=== PATIENT | female | born 1980 | race Caucasian/White ===

== ENCOUNTER 2016-06-23 00:17 | Emergency (ER) | payer OTHER ==
[~2016-06-23] VITALS: Ht 157.5 cm; Wt 83.0 kg
[~2016-06-23 00:17] MED LIST: ADV25050 INH; ALBU8.5H5 IH; ATEN-51 PO; FENO145T25 PO; LANT3I SC; LIPA1CAP6 PO; METF1000 PO; NOVO3I SC; OMEG-135 PO
[2016-06-23 00:56] VITALS: Ht 157.5 cm; Wt 83.0 kg
[2016-06-23 02:46] LABS: URINE BLOOD (Dip) POC 2+ (NEGATIVE)
--- NOTE | 2016-06-23 02:46 | ERA ---
ER Documentation Chief Complaint Date/Time DATE: 06/23/16 TIME: 02:46 Chief Complaint Abdominal pain HPI The patient is a 36-year-old female, presenting to the ER, presenting to the ER because of abdominal pain that began about 4 PM, 1010 without aggravating or relieving factor. He had similar symptoms previously, complains of vomiting 2 initially foot then mucus. She also complained of substernal chest discomfort that began about 6 PM, 8/10, denies any radiation, denies chest pain with exertion or vomiting or diaphoresis. She had ultrasound of the gallbladder 2 months ago that was negative She denied dysuria, diarrhea, constipation. She does not smoke nor drink Past medical history: Diabetes mellitus, hypertension, dyslipidemia, history of frequent pancreatitis Past surgical history: ROS All systems reviewed and are negative except as per history of present illness. Medications Home Meds Active Scripts Albuterol Sulfate* (Albuterol Sulfate* HFA) 8.5 Gm Hfa.aer.ad, 2 PUFF IH Q4H Y for WHEEZING AND SOB, #1 EA Prov:NEO DOMÍNGUEZ DO 12/06/14 Salmeterol Xinaf/Fluticasone* (Advair*) 1 Inh Inha, 1 INH INH BID, #1 DISK Prov:ALYSON FIELD MD 08/14/14 Zpibga-Gfofetcu-Qdkmhkc* (Crechanelle DR* 24,000) 1 Cap Cap, 2 CAP PO WITH MEALS, # 180 CAP Prov:ALYSON FIELD MD 08/14/14 Fish Oil* (Fish Oil*) 1,000 Mg Cap, 2000 MG PO BID, #120 CAP Prov:ALYSON FIELD MD 08/14/14 Reported Medications Metformin Hcl* (Metformin Hcl*) 1,000 Mg Tablet, 1000 MG PO BID, #30 TAB 06/08/15 Insulin Glargine* (Lantus*) 100 Unit/Ml Soln, 70 UNIT SC BID, #1 VIAL 06/08/15 Insulin Aspart* (Novolog Insulin Pen*) 100 Unit/Ml Soln, 75 UNITS SC AC MEALS, EA 06/08/15 Atenolol* (Atenolol*) 25 Mg Tablet, 50 MG PO DAILY Y for ELEVATED BLOOD PRESSURE , TAB 01/21/14 Fenofibrate Nanocrystallized* (Tricor*) 145 Mg Tablet, 145 MG PO DAILY, TAB 01/21/14 Allergies Allergies: Coded Allergies: Iodinated Contrast Media - IV Dye (Verified Allergy, Mild, ITCHINESS, 01/01) PMhx/Soc History of Surgery: Yes (c section, lap band in and out) Anesthesia Reaction: No Hx Neurological Disorder: No Hx Respiratory Disorders: Yes (asrhma) Hx Cardiac Disorders: Yes (htn) Hx Psychiatric Problems: No Hx Alcohol Use: No Hx Substance Use: No Hx Tobacco Use: No Physical Exam Vitals Vital Signs Date Time Temp Pulse Resp B/P Pulse Ox O2 Delivery O2 Flow Rate FiO2 06/23/16 02:48 130 21 141/73 96 Room Air 06/23/16 00:56 97.8 126 20 147/84 98 Physical Exam Const: No acute distress. Head: Atraumatic. Eyes: Normal Conjunctiva. ENT: Normal External Ears, Nose and Mouth. Neck: Full range of motion. No meningismus. Resp: Clear to auscultation bilaterally. Cardio: Regular rate and rhythm, no murmurs. Abd: Soft, non distended, normal bowel sounds, moderate left upper quadrant tenderness, no rigidity, rebound, CVA tenderness Skin: No petechiae or rashes. Back: No midline or flank tenderness. Ext: No cyanosis, or edema. Neur: Awake and alert. No focal deficit Psych: Normal Mood and Affect. Result Diagram: 06/23/16 0330 06/23/16 0330 Results 24 hrs Laboratory Tests Test 06/23/16 02:45 06/23/16 03:30 06/23/16 04:30 Bedside Urine pH (LAB) 5.5 Bedside Urine Protein (LAB) 3+ Bedside Urine Glucose (UA) 0.50% Bedside Urine Ketones (LAB) Negative Bedside Urine Blood 2+ Bedside Urine Nitrite (LAB) Negative Bedside Urine Leukocyte Esterase (L Negative White Blood Count 8.110^3/ul Red Blood Count 4.9410^6/ul Hemoglobin 14.0g/dl Hematocrit 41.7% Mean Corpuscular Volume 84.4fl Mean Corpuscular Hemoglobin 28.3pg Mean Corpuscular Hemoglobin Concent 33.6g/dl Red Cell Distribution Width 14.7% Platelet Count 18654^3/UL Mean Platelet Volume 9.7fl Neutrophils % 46.4% Lymphocytes % 46.0% Monocytes % 5.2% Eosinophils % 1.4% Basophils % 0.4% Nucleated Red Blood Cells % 0.0/100WBC Neutrophils # 3.810^3/ul Lymphocytes # 3.710^3/ul Monocytes # 0.410^3/ul Eosinophils # 0.110^3/ul Basophils # 0.010^3/ul Nucleated Red Blood Cells # 0.010^3/ul Sodium Level 137mmol/L Potassium Level 3.5mmol/L Chloride Level 106mmol/L Carbon Dioxide Level 16mmol/L Anion Gap 19 Blood Urea Nitrogen 13mg/dl Creatinine 0.49mg/dl Glucose Level 162mg/dl Calcium Level 9.5mg/dl Total Bilirubin 0.3mg/dl Direct Bilirubin 0.00mg/dl Indirect Bilirubin 0.3mg/dl Aspartate Amino Transf (AST/SGOT) 22IU/L Alanine Aminotransferase (ALT/SGPT) 22IU/L Alkaline Phosphatase 145IU/L Total Protein 6.9g/dl Albumin 3.4g/dl Globulin 3.50g/dl Albumin/Globulin Ratio 0.97 Lipase 217U/L D-Dimer 405.30ng/ml D-Dimer Comment Current Medications Medications (Trade) Dose Ordered Sig/Bob Route PRN Reason Start Time Stop Time Status Last Admin Dose Admin Sodium Chloride (NS) 1,000 ml @ 1,000 mls/hr Q1H STAT IV 06/23/16 02:52 06/23/16 03:51 DC 06/23/16 03:25 Hydromorphone HCl (Dilaudid) 1 mg ONCE ONCE IV 06/23/16 03:31 06/23/16 03:32 DC 06/23/16 03:36 Diphenhydramine HCl (Benadryl) 50 mg ONCE ONCE IV 06/23/16 03:30 06/23/16 03:31 DC 06/23/16 03:35 Hydromorphone HCl 1 mg 1 mg ONCE ONCE IV 06/23/16 04:23 06/23/16 04:24 DC 06/23/16 04:47 Levofloxacin/ Dextrose 150 ml @ 100 mls/hr ONCE ONCE IVPB 06/23/16 05:00 06/23/16 06:29 Piperacillin Sod/ Tazobactam Sod 100 ml @ 200 mls/hr ONCE ONCE IVPB 06/23/16 05:00 06/23/16 05:29 DC Sodium Chloride 1,000 ml @ 1,000 mls/hr Q1H ONCE IV 06/23/16 06:00 06/23/16 06:59 Sodium Chloride (NS) 500 ml @ 500 mls/hr Q1H ONCE IV 06/23/16 06:00 06/23/16 06:59 Procedures/MDM [place] [address] Radiology Main Line: [phone] DIAGNOSTIC IMAGING REPORT Patient: SANDIP ARNOLD : 1980 Age: 36 Sex: F MR #: [id number] DOS: 06/23/16 0252 Ordering MD: MARI SPICER MD Location: E/R Room/Bed: PROCEDURE: CT ABDOMEN/PELVIS WITHOUT CONTRAST CLINICAL INDICATION: 36-year-old female with abdominal pain. TECHNIQUE: The study was performed utilizing a GE [employer] VCT 64-slice CT scanner. Direct axial sections were obtained through the abdomen and pelvis without the use of intravenous contrast material. Sagittal and coronal reformations were obtained. One or more of the following dose reduction techniques were utilized: automated exposure control, adjustment of the mA and/ or kV according to patient's size or use of iterative reconstruction technique. The images were reviewed on a PACS workstation. CTD/vol = 19.4 mGy; Total Exam DLP = 1220.6 mGy-cm. COMPARISON: CT abdomen/pelvis August 24, 2015; CT chest January 18, 2015. FINDINGS: There is a focal peripheral infiltrate within the lateral segment of the right middle lobe with air bronchograms. There is reticulonodular appearance within the partially visualized right middle and right lower lobes suggestive of bronchiolitis. There is no evidence for significant pleural effusion. The liver has a normal contour within the large right Reidel lobe. There is been interval development of a hypodense mass within the posterior segment of the right lobe of the liver on axial image 3-94 measuring 3.7 x 3.6 x 3.4 cm not well characterized on the current examination. No intrahepatic nor extrahepatic biliary ductal dilatation is seen. The gallbladder demonstrates no wall thickening nor pericholecystic fluid. No biliary stones are evident. There has been interval development of a cyst projecting from the ventral aspect of the pancreas on axial image 2-64 measuring approximately 2.5 x 2.5 x 2.4 cm with an adjacent cyst measuring approximately 2.5 x 2.4 x 1.9 cm. These are most suggestive of pancreatic pseudocysts. The spleen is mildly enlarged measuring 14.4 cm in maximal length but without abnormal density. The adrenal glands are unremarkable. There is a small ovoid right upper pole renal hypodense focus measuring 5 x 7 x 6 mm on axial image 3-61 containing fat density most suggestive of an angiomyolipoma and without significant interval change. No hydroureteronephrosis nor nephroureterolithiasis is evident. The urinary bladder contains urine. There is qgud-cz-slwurtay hiatal hernia. There is mild retained stool identified within the ascending and transverse colon without obstruction. The appendix is visualized and is without abnormal thickening or surrounding inflammatory reaction. The uterus is anteflexed. There is no significant free fluid. The aortoiliac vessels are without aneurysmal dilatation. The osseous structures are intact. IMPRESSION: 1. Small focal infiltrate within the lateral segment of the right middle lobe with air bronchograms. 2. Diffuse reticulonodular appearance within the right middle and lower lobes suggestive of bronchiolitis. 3. Interval development of hypodense mass within the posterior segment of the right lobe of the liver not well characterized on the current examination. MRI imaging would be more sensitive for further evaluation. 4. Interval development of two adjacent cysts within the pancreatic body most likely representing pseudocysts and sequela of prior pancreatitis. 5. Small fatty ovoid density within the upper right kidney most likely representing angiomyolipoma and without significant interval change. 6. Mild splenomegaly. 7. Xsbv-mx-tbekbrgq hiatal hernia. 8. Retained stool without obstruction. 9. No CT evidence for appendicitis. .Barak López MD, Date Time Electronically viewed and signed by .Barak López MD, on 06/23/2016 04:19 .M/ CC: MARI SPICER MD [place] [address] Radiology Main Line: [phone] DIAGNOSTIC IMAGING REPORT Patient: SANDIP ARNOLD : 1980 Age: 36 Sex: F MR #: [id number] DOS: 06/23/16 0449 Ordering MD: MARI SPICER MD Location: E/R Room/Bed: PROCEDURE: CHEST - 1 VIEW CLINICAL INDICATION: 36-year-old female with shortness of breath. TECHNIQUE: A single frontal AP portable view of the chest was performed. The images were reviewed on a PACS workstation. COMPARISON: Chest x-ray August 22, 2015; CT abdomen/pelvis June 23, 2016. FINDINGS: The cardiomediastinal silhouette is within normal limits. There is a infiltrate within the right lower lung zone. There are mild diffuse reticular appearance within the right mid/lower lung zone. There is no evidence for congestive heart failure. There is no evidence for pneumothorax. The osseous structures are intact. IMPRESSION: 1. Right lower lobe lung zone infiltrate as seen on the patient's recent CT scan. 2. Mild diffuse reticular appearance right mid/lower lung zone. .Barak López MD, MD Date Time Electronically viewed and signed by .Barak López MD, MD on 06/23/2016 05:35 .M/ CC: MARI SPICER MD EKG: Read by emergency physician Rate/Rhythm: sinus Tachycardia 125 beats/min QRS, ST, T-waves: No ST elevation, no T inversion, left atrial enlargement Impression: Abnormal EKG MEDICAL MAKING DECISION: The patient is a 36-year-old female, presenting with acute pancreatic pseudocyst, acute pneumonia, hepatic mass. She was treated with Dilaudid 1 mg IV 2 for pain, Benadryl 50 L IV 1 for pruritus, normal saline 30 mL/kg IV, Zosyn IV for acute pancreatic pseudocyst, Levaquin IV for pneumonia with good response. Lactic acid level is pending Departure Diagnosis: Primary Impression: Pancreatic pseudocyst Additional Impressions: Pneumonia Liver mass Condition: Stable Comments I discussed the findings with the patient. I discussed the patient with the on- call hospitalist Dr Sainz who was made aware of the lab, the treatment, the patient condition. The patient is admitted to medical surgery bed at 5:35 AM MARI SPICER MD Jun 23, 2016 02:46
[2016-06-23] MEDS ORDERED: SOD CHLORIDE 0.9% 1,000 ML IV STA (02:52)
[2016-06-23] MEDS ORDERED: DIPHENHYDRAMINE 50 MG INJ IV ONE (03:30)
[2016-06-23] MEDS ORDERED: HYDROmorphONE 1 MG/ML SYG IV ONE ×2 (03:31→04:23)
[2016-06-23 04:03] LABS: ADD SCAN DIFF NO
[2016-06-23 04:07] LABS: BASOPHILS % 0.4 % (0.0-2.0); EOSINOPHILS # 0.1 10^3/ul (0.0-0.5); EOSINOPHILS % 1.4 % (0.0-7.0); HEMATOCRIT 41.7 % (37.0-47.0); LYMPHOCYTES # 3.7 10^3/ul (0.8-2.9); MEAN CORPUSCULAR HEMOGLOBIN 28.3 pg (29.0-33.0); MEAN CORPUSCULAR HGB CONC 33.6 g/dl (32.0-37.0); MEAN CORPUSCULAR VOLUME 84.4 fl (82.0-101.0); MEAN PLATELET VOLUME 9.7 fl (7.4-10.4); MONOCYTE # 0.4 10^3/ul (0.3-0.9); MONOCYTES % 5.2 % (0.0-11.0); NEUTROPHIL # 3.8 10^3/ul (1.6-7.5); NEUTROPHILS % 46.4 % (39.0-77.0); PLATELET COUNT 281 10^3/UL (140-415); RED BLOOD COUNT 4.94 10^6/ul (4.20-5.40); RED CELL DISTRIBUTION WIDTH 14.7 % (11.5-14.5); WHITE BLOOD COUNT 8.1 10^3/ul (4.8-10.8)
--- NOTE | 2016-06-23 04:20 | RADRPT ---
PROCEDURE: CT ABDOMEN/PELVIS WITHOUT CONTRAST CLINICAL INDICATION: 36-year-old female with abdominal pain. TECHNIQUE: The study was performed utilizing a GE [employer] VCT 64-slice CT scanner. Direct axia l sections were obtained through the abdomen and pelvis without the use of intravenous contrast mate rial. Sagittal and coronal reformations were obtained. One or more of the following dose reduction t echniques were utilized: automated exposure control, adjustment of the mA and/or kV according to pat ient's size or use of iterative reconstruction technique. The images were reviewed on a PACS workst [employer]. CTD/vol = 19.4 mGy; Total Exam DLP = 1220.6 mGy-cm. COMPARISON: CT abdomen/pelvis August 24, 2015; CT chest January 18, 2015. FINDINGS: There is a focal peripheral infiltrate within the lateral segment of the right middle lobe with air bronchograms. There is reticulonodular appearance within the partially visualized right middle and right lower lobes suggestive of bronchiolitis. There is no evidence for significant pleural effusion . The liver has a normal contour within the large right Reidel lobe. There is been interval develo pment of a hypodense mass within the posterior segment of the right lobe of the liver on axial image 3-94 measuring 3.7 x 3.6 x 3.4 cm not well characterized on the current examination. No intrahepati c nor extrahepatic biliary ductal dilatation is seen. The gallbladder demonstrates no wall thickenin g nor pericholecystic fluid. No biliary stones are evident. There has been interval development of a cyst projecting from the ventral aspect of the pancreas on axial image 2-64 measuring approximately 2.5 x 2.5 x 2.4 cm with an adjacent cyst measuring approximately 2.5 x 2.4 x 1.9 cm. These are most suggestive of pancreatic pseudocysts. The spleen is mildly enlarged measuring 14.4 cm in sohail l length but without abnormal density. The adrenal glands are unremarkable. There is a small ovoid r ight upper pole renal hypodense focus measuring 5 x 7 x 6 mm on axial image 3-61 containing fat dens ity most suggestive of an angiomyolipoma and without significant interval change. No hydroureterone phrosis nor nephroureterolithiasis is evident. The urinary bladder contains urine. There is mild-to- moderate hiatal hernia. There is mild retained stool identified within the ascending and transverse colon without obstruction. The appendix is visualized and is without abnormal thickening or surrou nding inflammatory reaction. The uterus is anteflexed. There is no significant free fluid. The aor toiliac vessels are without aneurysmal dilatation. The osseous structures are intact. IMPRESSION: 1. Small focal infiltrate within the lateral segment of the right middle lobe with air bronchograms . 2. Diffuse reticulonodular appearance within the right middle and lower lobes suggestive of bronchi olitis. 3. Interval development of hypodense mass within the posterior segment of the right lobe of the epifanio er not well characterized on the current examination. MRI imaging would be more sensitive for furth er evaluation. 4. Interval development of two adjacent cysts within the pancreatic body most likely representing p seudocysts and sequela of prior pancreatitis. 5. Small fatty ovoid density within the upper right kidney most likely representing angiomyolipoma and without significant interval change. 6. Mild splenomegaly. 7. Pzuc-ai-fvhywark hiatal hernia. 8. Retained stool without obstruction. 9. No CT evidence for appendicitis. .Barak López MD, MD Date Time Electronically viewed and signed by .Barak López MD, on 06/23/2016 04:19 .M/
[2016-06-23 04:58] LABS: ALBUMIN 3.4 g/dl (3.3-4.9)
[2016-06-23 04:59] LABS: POTASSIUM 3.5 mmol/L (3.5-5.1)
[2016-06-23] MEDS ORDERED: LEVOFLOXACIN 750MG/D5W (PMX) 150 ML IVPB ONE (05:00)
[2016-06-23] MEDS ORDERED: PIPER-TAZO 3.375 GM IV (PMX) 100 ML IVPB ONE (05:00)
[2016-06-23 05:01] LABS: ALBUMIN/GLOBULIN RATIO 0.97; BILIRUBIN,INDIRECT 0.3 mg/dl (0-1.1); BILIRUBIN,TOTAL 0.3 mg/dl (0.2-1.3); CREATININE 0.49 mg/dl (0.44-1.00); TOTAL PROTEIN 6.9 g/dl (6.1-8.1)
[2016-06-23 05:02] LABS: CALCIUM 9.5 mg/dl (8.4-10.2)
[2016-06-23 05:13] LABS: D-DIMER 405.3 ng/ml (<460)
--- NOTE | 2016-06-23 05:35 | RADRPT ---
PROCEDURE: CHEST - 1 VIEW CLINICAL INDICATION: 36-year-old female with shortness of breath. TECHNIQUE: A single frontal AP portable view of the chest was performed. The images were reviewed on a PACS workstation. COMPARISON: Chest x-ray August 22, 2015; CT abdomen/pelvis June 23, 2016. FINDINGS: The cardiomediastinal silhouette is within normal limits. There is a infiltrate within the right lo wer lung zone. There are mild diffuse reticular appearance within the right mid/lower lung zone. T here is no evidence for congestive heart failure. There is no evidence for pneumothorax. The osseous structures are intact. IMPRESSION: 1. Right lower lobe lung zone infiltrate as seen on the patient's recent CT scan. 2. Mild diffuse reticular appearance right mid/lower lung zone. .Barak López MD, Date Time Electronically viewed and signed by .Barak López MD, on 06/23/2016 05:35 .M/
--- NOTE | 2016-06-23 05:49 | HP ---
Date/Time of Note Date/Time of Note DATE: 06/23/16 TIME: 05:49 Assessment/Plan VTE Prophylaxis VTE Prophylaxis Intervention: other (Lovenox) Assessment/Plan Assessment/Plan 1) Pneumonia, RML with borderline SIRS criteria since her RR = 20 and her HR is elevated in the 120s-130s. If she meets the SIRS Criteria, she then meets the criteria for Severe Sepsis as she has a source of infection and her Lactic Acid is 3.7, so I am erring on the side of caution and treating her for Sepsis with aggressive IV hydration. Of note, she is acidotic with a CO2 of 16. Consider ABG - Admit to Telemetry - NPO - Aggressive IV hydration - IV Abx - change to Rocephin and Zithronmax to cover for Community Acquired Pneumonia - TSH ordered 2) Chest Pain with Abnormal EKG/possible inferior infarct - Trop I added on. Result not back yet. - Serial Cardiac Enzymes - Repeat CXR in AM - Echocardiogram/Cardio Consult - Dr. 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 She then goes on to say that it's abdominal pain just like when she had previous pancreatitis. This pain started when she was eating as a severe pain and this was located over the lower sternum where she points and she also points into the epigastrium. She describes it as a severe pain that did not radiate but she felt sweaty and short of breath and was initially nauseated and then vomited a couple of times. She has no cardiac history. As I am asking her questions about her history and how she feels, she asks about her pain medication saying that the Dilaudid 1mg is not enough. (ER doctor already warned me that patient seemed to be drug seeking.) Patient admits to having a cough for about a week. She also says that she has asthma and asks for a treatment. She denies fever but has had chills for the past couple of days. She does not have general body aches or sore throat. Patient insists that the problem is her pancreas. I told her that her Lipase is not elevated. She states that for her, it is her Triglycerides elevate first and then the Lipase. I told her that is a test that I would get the next morning , fasting. I reviewed patients labs, rads and EKG. I currently do not have an old EKG for comparison, but there are definitely Q-waves in leads II, III and aVF, so I am concerned about an inferior infarction which would go along with the nausea and vomiting she described. I added on a Troponin I to the current labs. D-Dimer was not elevated. ROS General: Admits: Chills Denies: Fever, Poor Appetite, Generalized Body Aches Eyes: Admits: Denies: Blurry Vision, Double Vision HENT: Admits: Denies: Ear Pain/Pressure, Runny/Stuffy Nose, Sore Throat Cardiovascular: Admits: Denies: Palpitations, Leg Swelling Pulmonary: Admits: Cough Denies: Wheeze, Shortness of Breath Gastrointestinal: Admits: Abdominal Pain, Nausea, Vomiting Denies: Diarrhea, Blood in Stool, Black-Colored Stool Urogenital: Admits: Denies: Burning with Urination, Urinary Frequency, Blood in Urine Musculoskeletal: Admits: Denies: Joint Pain, Joint Swelling, Muscle Pain Neurological: Admits: Denies: Headache, Dizziness, Numbness, Tingling, Shooting Pains Integumentary: Admits: Denies: Rash, Itch PMH/Family/Social Past Medical History Asthma; HTN Past Surgical History c section, lap band in and out Social History Alcohol Use: none Smoking Status: Never smoker Drug Use: none Exam/Review of Systems Vital Signs Vitals Vital Signs Date Time Temp Pulse Resp B/P Pulse Ox O2 Delivery O2 Flow Rate FiO2 06/23/16 02:48 130 21 141/73 96 Room Air 06/23/16 00:56 97.8 Exam Exam General: Overweight femal resting on gurney, alert and oriented, in no acute distress. C/O pain that seems out of proportion to how she looks. Eyes: Sclera White, EOMI HENT: Normocephalic/Atraumatic, External Ears/Nose Normal, Moist Mucus Membranes Neck: Supple, Trachea Midline Cardiovascular: Tachy Rate, Regular Rhythm, Normal S1 and S2, No Murmur, No Extra Sounds. Radial pulse +2/4. No pedal edema. Pulmonary: Clear to Auscultation Bilaterally, but generally decreased airflow throughout. Normal Respiratory Effort, No Rales, Rhonchi or Wheezes Gastrointestinal: Normoactive Bowel Sounds, Soft, Epigastric Tenderness, no guarding or rebound. Non-Distended, No Hepatosplenomegaly Appreciated, No Pulsatile Masses Urogenital: Deferred Musculoskeletal: Normal Muscle Bulk and Tone. Reproducible Chest Pin with palpation over the lower sternum, but not with palpation of the mid-sternum. Neurological: CN II - XII Grossly Intact, Non-Focal, Speech Normal Integumentary: Normal Moisture and Temperature, Good Turgor, No Jaundice, No Rash Lymphatic: No Cervical Lymphadenopathy Psychiatric: Appropriate Mood and Affect, Good Eye Contact Labs Result Diagram: 06/23/16 0330 06/23/16 0330 Medications Medications Home Meds Active Scripts Albuterol Sulfate* (Albuterol Sulfate* HFA) 8.5 Gm Hfa.aer.ad, 2 PUFF IH Q4H Y for WHEEZING AND SOB, #1 EA Prov:NEO DOMÍNGUEZ DO 12/06/14 Salmeterol Xinaf/Fluticasone* (Advair*) 1 Inh Inha, 1 INH INH BID, #1 DISK Prov:ALYSON FIELD MD 08/14/14 Esgowa-Kufzvyfy-Jfulmvx* (Creon DR* 24,000) 1 Cap Cap, 2 CAP PO WITH MEALS, # 180 CAP Prov:ALYSON FIELD MD 08/14/14 Fish Oil* (Fish Oil*) 1,000 Mg Cap, 2000 MG PO BID, #120 CAP Prov:ALYSON FIELD MD 08/14/14 Reported Medications Metformin Hcl* (Metformin Hcl*) 1,000 Mg Tablet, 1000 MG PO BID, #30 TAB 06/08/15 Insulin Glargine* (Lantus*) 100 Unit/Ml Soln, 70 UNIT SC BID, #1 VIAL 06/08/15 Insulin Aspart* (Novolog Insulin Pen*) 100 Unit/Ml Soln, 75 UNITS SC AC MEALS, EA 06/08/15 Atenolol* (Atenolol*) 25 Mg Tablet, 50 MG PO DAILY Y for ELEVATED BLOOD PRESSURE , TAB 01/21/14 Fenofibrate Nanocrystallized* (Tricor*) 145 Mg Tablet, 145 MG PO DAILY, TAB 01/21/14 Allergies Allergies: Coded Allergies: Iodinated Contrast Media - IV Dye (Verified Allergy, Mild, ITCHINESS, 01/01) Current Medications Medications (Trade) Dose Ordered Sig/Bob Route PRN Reason Start Time Stop Time Status Last Admin Dose Admin Sodium Chloride (NS) 1,000 ml @ 1,000 mls/hr Q1H STAT IV 06/23/16 02:52 06/23/16 03:51 DC 06/23/16 03:25 Hydromorphone HCl (Dilaudid) 1 mg ONCE ONCE IV 06/23/16 03:31 06/23/16 03:32 DC 06/23/16 03:36 Diphenhydramine HCl (Benadryl) 50 mg ONCE ONCE IV 06/23/16 03:30 06/23/16 03:31 DC 06/23/16 03:35 Hydromorphone HCl 1 mg 1 mg ONCE ONCE IV 06/23/16 04:23 06/23/16 04:24 DC 06/23/16 04:47 Levofloxacin/ Dextrose 150 ml @ 100 mls/hr ONCE ONCE IVPB 06/23/16 05:00 06/23/16 06:29 Piperacillin Sod/ Tazobactam Sod (Zosyn 3.375gm/ 100 ml (Pmx)) 100 ml @ 200 mls/hr ONCE ONCE IVPB 06/23/16 05:00 06/23/16 05:29 DC Procedures Procedures Laboratory Tests Test 06/23/16 02:45 06/23/16 03:30 06/23/16 04:30 Bedside Urine pH (LAB) 5.5 Bedside Urine Protein (LAB) 3+ Bedside Urine Glucose (UA) 0.50% Bedside Urine Ketones (LAB) Negative Bedside Urine Blood 2+ Bedside Urine Nitrite (LAB) Negative Bedside Urine Leukocyte Esterase (L Negative White Blood Count 8.110^3/ul Red Blood Count 4.9410^6/ul Hemoglobin 14.0g/dl Hematocrit 41.7% Mean Corpuscular Volume 84.4fl Mean Corpuscular Hemoglobin 28.3pg Mean Corpuscular Hemoglobin Concent 33.6g/dl Red Cell Distribution Width 14.7% Platelet Count 19799^3/UL Mean Platelet Volume 9.7fl Neutrophils % 46.4% Lymphocytes % 46.0% Monocytes % 5.2% Eosinophils % 1.4% Basophils % 0.4% Nucleated Red Blood Cells % 0.0/100WBC Neutrophils # 3.810^3/ul Lymphocytes # 3.710^3/ul Monocytes # 0.410^3/ul Eosinophils # 0.110^3/ul Basophils # 0.010^3/ul Nucleated Red Blood Cells # 0.010^3/ul Sodium Level 137mmol/L Potassium Level 3.5mmol/L Chloride Level 106mmol/L Carbon Dioxide Level 16mmol/L Anion Gap 19 Blood Urea Nitrogen 13mg/dl Creatinine 0.49mg/dl Glucose Level 162mg/dl Calcium Level 9.5mg/dl Total Bilirubin 0.3mg/dl Direct Bilirubin 0.00mg/dl Indirect Bilirubin 0.3mg/dl Aspartate Amino Transf (AST/SGOT) 22IU/L Alanine Aminotransferase (ALT/SGPT) 22IU/L Alkaline Phosphatase 145IU/L Total Protein 6.9g/dl Albumin 3.4g/dl Globulin 3.50g/dl Albumin/Globulin Ratio 0.97 Lipase 217U/L D-Dimer 405.30ng/ml D-Dimer Comment PROCEDURE: CT ABDOMEN/PELVIS WITHOUT CONTRAST CLINICAL INDICATION: 36-year-old female with abdominal pain. COMPARISON: CT abdomen/pelvis August 24, 2015; CT chest January 18, 2015. IMPRESSION: 1. Small focal infiltrate within the lateral segment of the right middle lobe with air bronchograms. 2. Diffuse reticulonodular appearance within the right middle and lower lobes suggestive of bronchiolitis. 3. Interval development of hypodense mass within the posterior segment of the right lobe of the liver not well characterized on the current examination. MRI imaging would be more sensitive for further evaluation. 4. Interval development of two adjacent cysts within the pancreatic body most likely representing pseudocysts and sequela of prior pancreatitis. 5. Small fatty ovoid density within the upper right kidney most likely representing angiomyolipoma and without significant interval change. 6. Mild splenomegaly. 7. Truy-jg-usybbdek hiatal hernia. 8. Retained stool without obstruction. 9. No CT evidence for appendicitis. GRANT MACIAS DO Jun 23, 2016 05:49
[2016-06-23] MEDS ORDERED: SOD CHLORIDE 0.9% 1,000 ML IV ONE (06:00)
[2016-06-23] MEDS ORDERED: SOD CHLORIDE 0.9% 500 ML IV ONE (06:00)
[2016-06-23] MEDS ORDERED: HYDROmorphONE 1 MG/ML SYG IV STA (06:15)
[2016-06-23] MEDS ORDERED: ACETAMINOPHEN 325 MG TAB PO PRN (07:00)
[2016-06-23] MEDS ORDERED: NITROGLYCERIN (SL) 0.4 MG TAB SL PRN (07:00)
[2016-06-23] MEDS ORDERED: HYDROmorphONE 2 MG/ML SYG IV PRN (07:00)
[2016-06-23] MEDS ORDERED: NACL 0.9% 3 ML SYG IV SCH (07:00)
[2016-06-23] MEDS ORDERED: METOCLOPRAMIDE 10 MG INJ IV PRN (07:00)
[2016-06-23] MEDS ORDERED: LEVALBUTEROL (NEB) 1.25 MG/0.5 ML AMP HHN SCH (07:00)
[2016-06-23] MEDS ORDERED: HYDROCODONE/APAP (5/325) TAB PO PRN (07:00)
[2016-06-23] MEDS ORDERED: AZITHROMYCIN 250 MG in SOD CHLORIDE 0.9% 250 ML IVPB SCH (07:00)
[2016-06-23] MEDS ORDERED: ATEN50TA PO (07:10)
[2016-06-23] MEDS ORDERED: INSU300I SQ (07:11)
[2016-06-23] MEDS ORDERED: ZOLP10TA PO (07:12)
[2016-06-23] MEDS: SOD CHLORIDE 0.9% 1,000 ML IV SCH ×2 (07:54→08:48)
[2016-06-23 08:36] LABS: CREATINE KINASE 80 IU/L (23-200)
[2016-06-23 08:45] LABS: CK-MB 1.75 ng/ml (0.0-2.4)
[2016-06-23 08:49] LABS: TROPONIN-I < 0.012 ng/ml (0.00-0.12)
[2016-06-23 09:00] VITALS: TEMP 98.4
[2016-06-23] MEDS ORDERED: GLUCOSE GEL 15 GRAM TUBE PO PRN ×2 (09:00)
[2016-06-23] MEDS ORDERED: GLUCOSE GEL 15 GRAM TUBE BUCCAL PRN (09:00)
[2016-06-23] MEDS ORDERED: FAMOTIDINE 20 MG INJ IV SCH (09:00)
[2016-06-23] MEDS ORDERED: GLUCAGON 1 MG INJ IM PRN (09:00)
[2016-06-23] MEDS ORDERED: CEFTRIAXONE 1 GM/50 ML (PMX) 50 ML IVPB SCH ×2 (09:00→12:00)
[2016-06-23] MEDS ORDERED: DEXTROSE 50% 50 ML SYRINGE IV PRN ×2 (09:00)
[2016-06-23] MEDS ORDERED: ENOXAPARIN 40 MG/0.4 ML SYG SC SCH (09:00)
[2016-06-23 10:38] VITALS: BP 135/83; PULSE 111; RESP 16
[2016-06-23] MEDS ORDERED: INSULIN ASPART [NOVOLOG] 3 ML PEN SC SCH (12:00)
[2016-06-23 13:01] LABS: CREATINE KINASE 101 IU/L (23-200)
[2016-06-23 13:11] LABS: CK-MB 2.43 ng/ml (0.0-2.4)
[2016-06-23 13:32] LABS: TROPONIN-I < 0.012 ng/ml (0.00-0.12)
--- NOTE | 2016-06-23 16:31 | DS ---
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 This pain started when she was eating as a severe pain and this was located over the lower sternum where she points and she also points into the epigastrium. She describes it as a severe pain that did not radiate but she felt sweaty and short of breath and was initially nauseated and then vomited a couple of times. Upon evaluation the course of the emergency room patient continued to demand for high dose of pain medication such as Dilaudid. Patient admits to having a cough for about a week. She also says that she has asthma and asks for a treatment. She denies fever but has had chills for the past couple of days. She does not have general body aches or sore throat. She continued to complain of having abdominal discomfort. Her chest x-ray showed questionable for pneumonia she was started on Zosyn and that was as transitioned to Rocephin. Her EKG demonstrated Q-waves in leads II, III and aVF , so I am concerned about an inferior infarction which would go along with the nausea and vomiting she described. D-Dimer was not elevated. Troponin was evaluated. Patient was made n.p.o. IV fluid pain medication cardiology and palliative care physician was consulted. Patient was found to have elevated lipase and lactic acid and was scheduled to be admitted to telemetry floor although she decided to sign out AMA from emergency room.. As stated above cardiology was consulted although prior to patient being evaluated cardiology patient signed out AMA Patient understood that signed out AMA with place and at the risk of worsening of her abdominal discomfort, risk of myocardial infarction and heart attack, worsening of her infection, worsening of abdominal discomfort and pancreatitis and possible . Home Meds Active Scripts Fish Oil* (Fish Oil*) 1,000 Mg Cap, 2000 MG PO BID, #120 CAP Prov:ALYSON FIELD MD 08/14/14 Reported Medications Zolpidem Tartrate* (Ambien*) 10 Mg Tablet, 10 MG PO QHS Y for INSOMNIA, TAB 06/23/16 Insulin Glargine,Hum.rec.anlog (Toujeo Solostar) 300 Unit/1 Ml Insuln.pen, 70 UNIT SQ QAM 06/23/16 Atenolol* (Atenolol*) 50 Mg Tablet, 50 MG PO DAILY, #30 TAB 06/23/16 Insulin Aspart* (Novolog Insulin Pen*) 100 Unit/Ml Soln, 75 UNITS SC AC MEALS, EA 06/08/15 Fenofibrate Nanocrystallized* (Tricor*) 145 Mg Tablet, 145 MG PO DAILY, TAB 01/21/14 Discontinued Reported Medications Metformin Hcl* (Metformin Hcl*) 1,000 Mg Tablet, 1000 MG PO BID, #30 TAB 06/08/15 Insulin Glargine* (Lantus*) 100 Unit/Ml Soln, 70 UNIT SC BID, #1 VIAL 06/08/15 Atenolol* (Atenolol*) 25 Mg Tablet, 50 MG PO DAILY Y for ELEVATED BLOOD PRESSURE , TAB 01/21/14 Discontinued Scripts Albuterol Sulfate* (Albuterol Sulfate* HFA) 8.5 Gm Hfa.aer.ad, 2 PUFF IH Q4H Y for WHEEZING AND SOB, #1 EA Prov:NEO DOMÍNGUEZ DO 12/06/14 Salmeterol Xinaf/Fluticasone* (Advair*) 1 Inh Inha, 1 INH INH BID, #1 DISK Prov:ALYSON FIELD MD 08/14/14 Kupsoq-Juxskqyn-Lrfnyxs* (Flor DR* 24,000) 1 Cap Cap, 2 CAP PO WITH MEALS, # 180 CAP Prov:ALYSON FIELD MD 08/14/14 Pending Labs Laboratory Tests Test 06/23/16 02:45 06/23/16 03:30 06/23/16 04:30 06/23/16 05:17 Bedside Urine pH (LAB) 5.5 (5.0-8.5) Bedside Urine Protein (LAB) 3+ (NEGATIVE) Bedside Urine Glucose (UA) 0.50% (NEGATIVE) Bedside Urine Ketones (LAB) Negative (NEGATIVE) Bedside Urine Blood 2+ (NEGATIVE) Bedside Urine Nitrite (LAB) Negative (NEGATIVE) Bedside Urine Leukocyte Esterase (L Negative (NEGATIVE) White Blood Count 8.110^3/ul (4.8-10.8) Red Blood Count 4.9410^6/ul (4.20-5.40) Hemoglobin 14.0g/dl (12.0-16.0) Hematocrit 41.7% (37.0-47.0) Mean Corpuscular Volume 84.4fl (82.0-101.0) Mean Corpuscular Hemoglobin 28.3pg (29.0-33.0) Mean Corpuscular Hemoglobin Concent 33.6g/dl (32.0-37.0) Red Cell Distribution Width 14.7% (11.5-14.5) Platelet Count 06959^3/UL (140-415) Mean Platelet Volume 9.7fl (7.4-10.4) Neutrophils % 46.4% (39.0-77.0) Lymphocytes % 46.0% (15.0-51.0) Monocytes % 5.2% (0.0-11.0) Eosinophils % 1.4% (0.0-7.0) Basophils % 0.4% (0.0-2.0) Nucleated Red Blood Cells % 0.0/100WBC (0.0-0.0) Neutrophils # 3.810^3/ul (1.6-7.5) Lymphocytes # 3.710^3/ul (0.8-2.9) Monocytes # 0.410^3/ul (0.3-0.9) Eosinophils # 0.110^3/ul (0.0-0.5) Basophils # 0.010^3/ul (0.0-0.1) Nucleated Red Blood Cells # 0.010^3/ul (0.0-0.0) Sodium Level 137mmol/L (135-144) Potassium Level 3.5mmol/L (3.5-5.1) Chloride Level 106mmol/L (97-110) Carbon Dioxide Level 16mmol/L (21-31) Anion Gap 19 (8-16) Blood Urea Nitrogen 13mg/dl (7-20) Creatinine 0.49mg/dl (0.44-1.00) Glucose Level 162mg/dl (70-220) Calcium Level 9.5mg/dl (8.4-10.2) Total Bilirubin 0.3mg/dl (0.2-1.3) Direct Bilirubin 0.00mg/dl (0.00-0.20) Indirect Bilirubin 0.3mg/dl (0-1.1) Aspartate Amino Transf (AST/SGOT) 22IU/L (15-46) Alanine Aminotransferase (ALT/SGPT) 22IU/L (13-69) Alkaline Phosphatase 145IU/L (42-121) Total Protein 6.9g/dl (6.1-8.1) Albumin 3.4g/dl (3.3-4.9) Globulin 3.50g/dl (1.3-3.2) Albumin/Globulin Ratio 0.97 Lipase 217U/L (23-300) D-Dimer 405.30ng/ml (<460) D-Dimer Comment Triglycerides Level 1456mg/dl (0-149) Lactic Acid Level 3.7mmol/L (0.5-2.2) Troponin I < 0.012ng/ml (0.00-0.12) Test 06/23/16 07:10 06/23/16 07:40 06/23/16 09:29 06/23/16 12:25 Creatine Kinase 80IU/L (23-200) Creatine Kinase Index 2.2 Creatinine Kinase MB (Mass) 1.75ng/ml (0.0-2.4) Troponin I < 0.012ng/ml (0.00-0.12) Lactic Acid Level 4.7mmol/L (0.5-2.2) 4.8mmol/L (0.5-2.2) Bedside Glucose 284mg/dL (70-220) Test 06/23/16 12:42 Creatine Kinase 101IU/L (23-200) Creatine Kinase Index 2.4 Creatinine Kinase MB (Mass) 2.43ng/ml (0.0-2.4) Troponin I < 0.012ng/ml (0.00-0.12) JOEL CASTLE MD Jun 23, 2016 16:31
[2016-06-24] MEDS ORDERED: AZITHROMYCIN 250 MG in SOD CHLORIDE 0.9% 250 ML IVPB SCH (07:00)
== END 2016-06-23 13:40 | disposition left against medical advice (07) ==
LOC: E/R 00:17
DX: K86.3 Pseudocyst of pancreas (principal); J18.9 Pneumonia, unspecified organism; R16.0 Hepatomegaly, not elsewhere classified; I10 Essential (primary) hypertension; J45.909 Unspecified asthma, uncomplicated; E11.9 Type 2 diabetes mellitus without complications; Z79.4 Long term (current) use of insulin; Z79.84 Long term (current) use of oral hypoglycemic drugs
CPT/HCPCS: 36415; 71010; 74176; 80053; 81003; 82550; 82553; 82962; 83605; 83690; 84478; 84484; 85025; 85378; 87040; 93005; 94664; 96361; 96365; 96366; 96368; 96372; 96375; 96376; J0696; J1170; J1200; J1650; J1815; J1956; J2543; J7030; J7040; Z7502; Z7610; J0456; J7050

== ENCOUNTER 2016-08-25 16:23 | Inpatient (IN) | payer OTHER ==
[~2016-08-25] VITALS: Ht 162.6 cm; Wt 79.0 kg
[~2016-08-25 16:23] MED LIST changes: -ADV25050 INH; -ALBU8.5H5 IH; -ATEN-51 PO; +ATEN50TA PO; +INSU300I SQ; -LANT3I SC; -LIPA1CAP6 PO; -METF1000 PO; +ZOLP10TA PO
[2016-08-25 16:45] LABS: URINE BLOOD (Dip) POC Negative (NEGATIVE)
[2016-08-25] MEDS ORDERED: ONDANSETRON 4 MG INJ IV STA (16:56)
[2016-08-25] MEDS ORDERED: HYDROmorphONE 1 MG/ML SYG IV STA ×3 (16:56→21:46)
[2016-08-25] MEDS ORDERED: DIPHENHYDRAMINE 50 MG INJ IV ONE ×2 (17:00→22:00)
[2016-08-25] MEDS ORDERED: SOD CHLORIDE 0.9% 1,000 ML IV ONE (17:00)
[2016-08-25 17:51] LABS: Allen Test ACCEPTAB; Arterial COHb 0.5 % (0.0-3.0); Arterial HCO3 21.2 mmol/L (22.0-26.0); Arterial MetHb 0.3 % (0.0-1.5); Arterial Total Hemglobin 14.7 g/dl (12.0-18.0); MODE ROOM AIR
[2016-08-25 17:53] LABS: ADD SCAN DIFF NO
[2016-08-25 17:55] LABS: BASOPHILS % 0.1 % (0.0-2.0); EOSINOPHILS # 0.1 10^3/ul (0.0-0.5); EOSINOPHILS % 1.4 % (0.0-7.0); HEMATOCRIT 37.3 % (37.0-47.0); HEMOGLOBIN 13.7 g/dl (12.0-16.0); LYMPHOCYTES # 2.5 10^3/ul (0.8-2.9); LYMPHOCYTES % 28.6 % (15.0-51.0); MEAN CORPUSCULAR HEMOGLOBIN 29.8 pg (29.0-33.0); MEAN CORPUSCULAR HGB CONC 36.7 g/dl (32.0-37.0); MEAN CORPUSCULAR VOLUME 81.1 fl (82.0-101.0); MEAN PLATELET VOLUME 10.7 fl (7.4-10.4); MONOCYTE # 0.4 10^3/ul (0.3-0.9); MONOCYTES % 4.3 % (0.0-11.0); NEUTROPHIL # 5.7 10^3/ul (1.6-7.5); NEUTROPHILS % 65.1 % (39.0-77.0); PLATELET COUNT 308 10^3/UL (140-415); RED CELL DISTRIBUTION WIDTH 13.1 % (11.5-14.5); WHITE BLOOD COUNT 8.8 10^3/ul (4.8-10.8)
[2016-08-25 18:14] LABS: ALBUMIN 4.6 g/dl (3.3-4.9); ALBUMIN/GLOBULIN RATIO 1.39; BILIRUBIN,INDIRECT 0.4 mg/dl (0-1.1); BILIRUBIN,TOTAL 0.4 mg/dl (0.2-1.3); CALCIUM 10.3 mg/dl (8.4-10.2); CREATININE 1.05 mg/dl (0.44-1.00); POTASSIUM 4.8 mmol/L (3.5-5.1); TOTAL PROTEIN 7.9 g/dl (6.1-8.1)
[2016-08-25] MEDS ORDERED: LACTATED RINGER'S 1,000 ML IV ONE (18:30)
--- NOTE | 2016-08-25 19:08 | ERA ---
ER Documentation Chief Complaint Date/Time DATE: 08/25/16 TIME: 19:00 Chief Complaint AP/CHEST PAIN, HX PANCREATITIS (NATE SANCHES NP) HPI 36-year-old female with history of diabetes and pancreatitis presents to ED with sudden onset abdominal pain since yesterday. Patient states the pain is sharp, feels like "churning with knife inside." Patient reports nausea with 2 episodes of vomiting, nonbilious and nonbloody. Patient states that the abdominal pain feels similar to her previous pancreatitis pain, requesting Dilaudid. Patient takes Glucophage and Toujeo daily as well as sliding scale Humalog for her diabetes. Patient stated that her last blood sugar was 280 earlier today. LMP 08/03/2016. Denies fever or chills. Denies diarrhea. Denies dysuria. Denies cough or runny nose. Denies headache or neck pain. (NATE SANCHES NP) ROS All systems reviewed and are negative except as per history of present illness. (NATE SANCHES NP) Medications Home Meds Active Scripts Fish Oil* (Fish Oil*) 1,000 Mg Cap, 2000 MG PO BID, #120 CAP Prov:ALYSON FIELD MD 08/14/14 Reported Medications Insulin Glargine,Hum.rec.anlog (Toujeo Solostar) 300 Unit/1 Ml Insuln.pen, 75 UNIT SQ QHS 08/25/16 Insulin Lispro (Humalog Kwikpen) 200 Unit/1 Ml Insuln.pen, 0 SQ SLIDING SCALE Y for WITH MEALS, EA 08/25/16 Zolpidem Tartrate* (Ambien*) 10 Mg Tablet, 10 MG PO QHS Y for INSOMNIA, TAB 06/23/16 Atenolol* (Atenolol*) 50 Mg Tablet, 50 MG PO DAILY, #30 TAB 06/23/16 Fenofibrate Nanocrystallized* (Tricor*) 145 Mg Tablet, 145 MG PO DAILY, TAB 01/21/14 Discontinued Reported Medications Insulin Glargine,Hum.rec.anlog (Toujeo Solostar) 300 Unit/1 Ml Insuln.pen, 70 UNIT SQ QAM 06/23/16 Insulin Aspart* (Novolog Insulin Pen*) 100 Unit/Ml Soln, 75 UNITS SC AC MEALS, EA 06/08/15 Allergies Allergies: Coded Allergies: Iodinated Contrast Media - Oral and (Verified Allergy, Mild, ITCHINESS, 08/25/16) morphine (Verified Allergy, Unknown, BLISTERS, 08/25/16) PMhx/Soc History of Surgery: Yes (c section, lap band in and out) Anesthesia Reaction: No Hx Neurological Disorder: No Hx Respiratory Disorders: Yes (asthma) Hx Cardiac Disorders: Yes (htn, high triglycerides) Hx Psychiatric Problems: No Hx Alcohol Use: No Hx Substance Use: No Hx Tobacco Use: No Smoking Status: Never smoker (NATE SANCHES NP) Physical Exam Vitals Vital Signs Date Time Temp Pulse Resp B/P Pulse Ox O2 Delivery O2 Flow Rate FiO2 08/25/16 19:02 98.6 122 18 148/89 99 Room Air 08/25/16 16:24 98.2 123 18 118/73 99 (PANFILO MURGUIA MD) Physical Exam General: Well-developed, well-nourished, conscious and coherent, in no distress Skin: Warm and dry without rash, good texture and turgor Head: Normocephalic without evidence of trauma Eyes: Sclera and conjunctivae normal; pupils equal, round, and reactive to light; extraocular movements are intact Nose/Face: Without rhinorrhea Mouth/throat: Mucous membranes are moist. Posterior pharynx clear without erythema or exudates Neck: Supple without meningismus or adenopathy. Carotids are equal. Trachea midline. No bruits or JVD Chest: Normal AP diameter. Good expansion without retractions. Nontender. Lungs are clear to auscultate bilaterally with good tidal volume Heart: Tachycardia with regular rhythm. No murmur, rub, or gallops heard Abdomen: Obese and diffusely tender without masses, guarding, or rebound. Bowel sounds are active. No hepatosplenomegaly Back: Without spinal or CVA tenderness Pelvis: Nontender to palpation and stable to compression Extremities: Full range of motion. Good strength bilaterally. No clubbing, cyanosis, or edema. Peripheral pulses are intact. Sensation intact Neuro: Alert and oriented 4, GCS 15. Cranial nerves grossly intact. Motor and sensory exams nonfocal. Moves all extremities. Speech clear. Gait normal (NATE SANCHES NP) Result Diagram: 08/25/16 1740 6/8/17 2115 Results 24 hrs Laboratory Tests Test 08/25/16 16:48 08/25/16 17:28 08/25/16 17:37 08/25/16 17:40 Bedside Urine pH (LAB) 6.5 Bedside Urine Protein (LAB) Trace Bedside Urine Glucose (UA) 0.50% Bedside Urine Ketones (LAB) Negative Bedside Urine Blood Negative Bedside Urine Nitrite (LAB) Negative Bedside Urine Leukocyte Esterase (L Negative Bedside Glucose > 595mg/dL Blood Gas Specimen Source Blood arterial Arterial Blood Date Drawn 08/25/2016 5:42:13 PM Arterial Blood pH (Temp corrected) 7.437 Arterial Blood pCO2 (Temp correct) 32.2mmhg Arterial Blood pO2 (Temp corrected) 83.2mmHG Arterial Blood HCO3 21.2mmol/L Arterial Blood Base Excess -2.0mmol/L Arterial Blood Oxygen Saturation 95.8mmHG Yobani Test ACCEPTAB Arterial Blood Gas Puncture Site Right Radial Arterial Blood Carboxyhemoglobin 0.5% Arterial Blood Methemoglobin 0.3% Blood Gas A-a O2 Differential 28.0mmHg Oxyhemoglobin Percent 95.0% Total Hemoglobin 14.7g/dl Blood Gas Temperature 37.0C Blood Gas Modality ROOM AIR FiO2 21.0% Blood Gas Notified Whom M.Jasmeet Blood Gas Notified Time 08/25/2016 5:50:55 PM White Blood Count 8.810^3/ul Red Blood Count 4.6010^6/ul Hemoglobin 13.7g/dl Hematocrit 37.3% Mean Corpuscular Volume 81.1fl Mean Corpuscular Hemoglobin 29.8pg Mean Corpuscular Hemoglobin Concent 36.7g/dl Red Cell Distribution Width 13.1% Platelet Count 52733^3/UL Mean Platelet Volume 10.7fl Neutrophils % 65.1% Lymphocytes % 28.6% Monocytes % 4.3% Eosinophils % 1.4% Basophils % 0.1% Nucleated Red Blood Cells % 0.0/100WBC Neutrophils # 5.710^3/ul Lymphocytes # 2.510^3/ul Monocytes # 0.410^3/ul Eosinophils # 0.110^3/ul Basophils # 0.010^3/ul Nucleated Red Blood Cells # 0.010^3/ul Sodium Level 122mmol/L Potassium Level 4.8mmol/L Chloride Level 88mmol/L Carbon Dioxide Level 16mmol/L Anion Gap 23 Blood Urea Nitrogen 42mg/dl Creatinine 1.05mg/dl Glucose Level 1045mg/dl Calcium Level 10.3mg/dl Total Bilirubin 0.4mg/dl Direct Bilirubin 0.00mg/dl Indirect Bilirubin 0.4mg/dl Aspartate Amino Transf (AST/SGOT) 20IU/L Alanine Aminotransferase (ALT/SGPT) 31IU/L Alkaline Phosphatase 252IU/L Total Protein 7.9g/dl Albumin 4.6g/dl Globulin 3.30g/dl Albumin/Globulin Ratio 1.39 Lipase 138U/L Test 08/25/16 18:40 08/25/16 19:30 08/25/16 20:06 08/25/16 21:06 Lactic Acid Level 2.2mmol/L Phosphorus Level 6.6mg/dl Magnesium Level 1.6mg/dl Troponin I 0.020ng/ml Serum HCG, Qualitative NEGATIVE Bedside Glucose > 595mg/dL > 595mg/dL Test 08/25/16 21:15 08/25/16 21:25 Sodium Level 129mmol/L Potassium Level 4.3mmol/L Chloride Level 94mmol/L Carbon Dioxide Level 19mmol/L Anion Gap 20 Blood Urea Nitrogen 39mg/dl Creatinine 0.89mg/dl Glucose Level Pending Calcium Level 9.8mg/dl Lactic Acid Level 1.1mmol/L Current Medications Medications (Trade) Dose Ordered Sig/Bob Route PRN Reason Start Time Stop Time Status Last Admin Dose Admin Sodium Chloride (NS) 1,000 ml @ 1,000 mls/hr Q1H ONCE IV 08/25/16 17:00 08/25/16 17:59 DC 08/25/16 17:57 Hydromorphone HCl (Dilaudid) 1 mg ONCE STAT IV 08/25/16 16:56 08/25/16 16:59 DC 08/25/16 17:56 Ondansetron HCl (Zofran Inj) 4 mg ONCE STAT IV 08/25/16 16:56 08/25/16 16:59 DC 08/25/16 17:56 Diphenhydramine HCl 50 mg 50 mg ONCE ONCE IV 08/25/16 17:00 08/25/16 17:01 DC 08/25/16 17:56 Lactated Ringer's (Lr) 1,000 ml @ 1,000 mls/hr Q1H ONCE IV 08/25/16 18:30 08/25/16 19:29 DC 08/25/16 19:05 Hydromorphone HCl 1 mg 1 mg ONCE STAT IV 08/25/16 19:37 08/25/16 19:38 DC 08/25/16 20:13 Lactated Ringer's 1,000 ml @ 1,000 mls/hr Q1H STAT IV 08/25/16 19:47 08/25/16 20:46 DC 08/25/16 21:16 Insulin Human Regular/Sodium Chloride (Novolin-R/NS) 100 ml @ 0 mls/hr TITRATE STAT IV 08/25/16 19:47 08/25/16 19:52 DC 08/25/16 21:14 Hydromorphone HCl (Dilaudid) 1 mg ONCE STAT IV 08/25/16 21:46 08/25/16 21:47 DC 08/25/16 21:53 Diphenhydramine HCl (Benadryl) 25 mg ONCE ONCE IV 08/25/16 22:00 08/25/16 22:01 08/25/16 21:53 (PANFILO MURGUIA MD) Results 24 hrs PROCEDURE: XR Chest. CLINICAL INDICATION: Chest pain TECHNIQUE: AP view of the chest was obtained. COMPARISON: 06/23/2016 FINDINGS: The cardiomediastinal silhouette is within normal limits. The lungs are clear. No pleural effusion or pneumothorax is identified. The visualized osseous structures are intact. IMPRESSION: No evidence of active cardiopulmonary disease. RPTAT: HESO .Jamin Simmons MD, MD Date Time Electronically viewed and signed by .Jamin Simmons MD, MD on 08/25/2016 19:13 .O/ CC: NATE SANCHES NP (NATE SANCHES NP) Procedures/MDM 36-year-old female with history of diabetes and pancreatitis presents to ED today with sudden onset abdominal pain 2 days. Patient is well-known to this ED with frequent visits for the similar symptoms. She usually requests Dilaudid. Today, she requests 2 mg of Dilaudid, Benadryl, and Zofran. 1 mg of Dilaudid, 50 mg Benadryl, and 4 mg Zofran IV given to the patient, patient also given 1 L normal saline bolus. Her initial Accu-Chek initially was greater than 590. Differentials at this time include but not limited to DKA, HHS, pancreatitis. ABG is within normal, no acidosis. EKG: Sinus tachycardia with rate 122 bpm, normal axis. Q waves noted in leads II and III, no ST segment elevation or depression. No ectopic beats. No QT prolongation. No other EKG abnormalities. EKG read by Dr. Navarro. Checks x-ray within normal. CBC: Within normal limits, no leukocytosis. CMP: Glucose 1045, sodium 122, BUN 42, creatinine 1.05, anion gap of 23. Lipase: 138 UA: 0.5% glucose, trace protein, otherwise negative Patient likely to be in hyperglycemic hyperosmolar state. She did not have DKA or pancreatitis. I have low suspicion for infection or sepsis. However lactic acid is ordered, results pending. I have consulted patient with Dr. Navarro, who will admit patient to ICU. Patient stated that she still in pain, another 1 mg of Dilaudid IV given to the patient. Patient also given 1 L of lactated Ringer at this time. Patient condition: Stable Critical CARE time: 30 minutes (NATE SANCHES NP) EKG: Rate/Rhythm: Sinus tachycardia at 1 22 bpm QRS, ST, T-waves: No changes consistent w/ acute ischemia Impression: No evidence of ischemia or arrhythmia I assumed care of the patient from the [employer]. Patient is presenting with what seems to be hyperosmolar hyperglycemic syndrome. There is no evidence of DKA. There is some lactic acidosis, likely secondary to hypovolemia. There is no evidence of infection on urinalysis, exam, or chest x-ray. 3 L of IV fluids were given. She was started on insulin drip. . Patient was given Dilaudid for her abdominal pain. She does have a history of chronic pancreatitis, which is probably why her lipase is not elevated today. Patient is otherwise hemodynamically stable.Patient will require admission to the ICU. Discussed the patient with Dr. Simon, the admitting physician Critical Care Time: 35 minutes Treatments/Evaluations: Close monitoring and treatment of unstable vital signs, cardiorespiratory, and neurologic status, while maintaining tight balance of fluid, respiratory, and cardiac interventions. This time includes discussing the case with the patient and the patients family. This time does not include all procedures stated elsewhere in this record. This time also includes reviewing old records, labs and radiological studies. This time includes examining and re-examining the patient. Additionally, this time also includes arranging care with admitting and consulting physicians. (PANFILO MURGUIA MD) Departure Diagnosis: Primary Impression: Type 2 diabetes mellitus with hyperosmolar nonketotic hyperglycemia Condition: Critical NATE SANCHES NP Aug 25, 2016 19:08 PANFILO MURGUIA MD Aug 25, 2016 22:02
--- NOTE | 2016-08-25 19:13 | RADRPT ---
PROCEDURE: XR Chest. CLINICAL INDICATION: Chest pain TECHNIQUE: AP view of the chest was obtained. COMPARISON: 06/23/2016 FINDINGS: The cardiomediastinal silhouette is within normal limits. The lungs are clear. No pleural effusion or pneumothorax is identified. The visualized osseous structures are intact. IMPRESSION: No evidence of active cardiopulmonary disease. RPTAT: HESO .Jamin Simmons MD, Date Time Electronically viewed and signed by .Jamin Simmons MD, on 08/25/2016 19:13 .O/
[2016-08-25] MEDS ORDERED: LACTATED RINGER'S 1,000 ML IV STA (19:47)
[2016-08-25] MEDS ORDERED: INSULIN HUMAN REGULAR 100 UNIT in SOD CHLORIDE 0.9% 99 ML IV STA (19:47)
[2016-08-25] MEDS ORDERED: INSU200I SQ (19:58)
[2016-08-25] MEDS ORDERED: INSU300I SQ (19:59)
[2016-08-25 20:29] LABS: MAGNESIUM 1.6 mg/dl (1.7-2.5); PHOSPHORUS 6.6 mg/dl (2.5-4.9)
[2016-08-25 20:41] LABS: TROPONIN-I 0.02 ng/ml (0.00-0.12)
[2016-08-25 21:52] LABS: CALCIUM 9.8 mg/dl (8.4-10.2); CREATININE 0.89 mg/dl (0.44-1.00); POTASSIUM 4.3 mmol/L (3.5-5.1)
[2016-08-25 23:51] LABS: CALCIUM 9.9 mg/dl (8.4-10.2); CREATININE 0.85 mg/dl (0.44-1.00); POTASSIUM 3.8 mmol/L (3.5-5.1)
[2016-08-26] VITALS (11 sets, daily range): BP systolic 106–140; BP diastolic 56–90; PULSE 86–113; RESP 16–19; TEMP 96.4; Ht 162.6 cm; Wt 79.0 kg
[2016-08-26] MEDS: HYDROmorphONE 1 MG/ML SYG IV PRN ×4 (00:57→13:24)
[2016-08-26] MEDS ORDERED: GLUCOSE GEL 15 GRAM TUBE PO PRN ×2 (01:30)
[2016-08-26] MEDS: ACCU-CHEK XX SCH ×3 (01:30→03:30)
[2016-08-26] MEDS ORDERED: DEXTROSE 50% 50 ML SYRINGE IV PRN ×4 (01:30)
[2016-08-26] MEDS ORDERED: LORAZEPAM 2 MG INJ IV PRN (01:30)
[2016-08-26] MEDS ORDERED: GLUCAGON 1 MG INJ IM PRN (01:30)
[2016-08-26] MEDS: INSULIN GLARGINE [LANtus] 3 ML PEN SC SCH ×3 (01:30→21:37)
[2016-08-26] MEDS ORDERED: GLUCOSE GEL 15 GRAM TUBE BUCCAL PRN (01:30)
[2016-08-26 04:04] LABS: CALCIUM 10.1 mg/dl (8.4-10.2); CREATININE 0.75 mg/dl (0.44-1.00); POTASSIUM 3.7 mmol/L (3.5-5.1)
[2016-08-26] MEDS ORDERED: DIPHENHYDRAMINE 50 MG INJ IV ONE (05:00)
[2016-08-26] MEDS ORDERED: DIPHENHYDRAMINE 25 MG CAP PO PRN (05:00)
[2016-08-26] MEDS: SOD CHLORIDE 0.9% 1,000 ML IV SCH ×4 (05:01→17:14)
[2016-08-26] MEDS ORDERED: INSULIN ASPART [NOVOLOG] 3 ML PEN SC ONE (06:00)
--- NOTE | 2016-08-26 07:59 | HP ---
DATE OF ADMISSION: 08/26/2016 TIME SEEN: 2300. CHIEF COMPLAINT: Abdominal pain. HISTORY OF PRESENT ILLNESS: The patient is a 36-year-old female with a history of diabetes, pancrea titis, pancreatic pseudocyst, and pneumonia who presented to the emergency department with abdominal pain. The abdominal pain is described as sharp, it is diffuse and associated with nonbloody, nonbi lious emesis. No chest pain, no shortness of breath, fever, chills, or urinary symptoms. When she presented to the ER, she was tachycardic with a heart rate in the 120s, otherwise the rest of her vitals were stable. Laboratory value was notable for a sodium of 122, chloride 88, bicarbona te 16, BUN 42, creatinine 1.05, and glucose of 1045. The patient was started on insulin drip and wa s kept in the ER for a few hours with resolution of acidosis and with improvement of blood glucose. Lipase was normal at 138. REVIEW OF SYSTEMS: A 12-point review was performed and is negative except as mentioned in the HPI. PAST MEDICAL HISTORY: As per HPI. PAST SURGICAL HISTORY: , lap band. SOCIAL HISTORY: Denied a history of tobacco, alcohol, or illicit drug use. ALLERGIES: 1. IODINATED CONTRAST. 2. MORPHINE. HOME MEDICATIONS: 1. Insulin. 2. Ambien. 3. Fish oil. 4. Tricor. 5. Atenolol. PHYSICAL EXAMINATION: GENERAL: No distress, alert, and oriented. HEENT: No obvious head deformity. PSYCHIATRIC: Extraocular muscles intact. CARDIOVASCULAR: Tachycardic with regular rhythm. LUNGS: Clear. ABDOMEN: Soft. There is tenderness diffusely with no guarding, rebound tenderness, or rigidity. EXTREMITIES: No edema. NEUROLOGIC: No focal deficit. LABORATORY: Pertinent positive labs as mentioned in the HPI. IMAGING: Chest x-ray: No evidence of active cardiopulmonary disease. IMPRESSION: 1. Hyperosmolar hyperglycemic state. 2. Abdominal pain, likely secondary to chronic pancreatitis. 3. Pseudohyponatremia, secondary to hyperglycemia. 4. Mild acute kidney injury. 5. Anion gap metabolic acidosis, resolved. 6. History of hypertension, blood pressure within goal. 7. History of dyslipidemia. PLAN: The patient has been on insulin drip, now she will be transitioned to subcutaneous insulin. We will provide pain medication as needed. She will be continued with her home medication with adju stment as needed. Her abdominal pain is likely secondary to chronic pancreatitis. Note that the pa adan has a history of pseudocyst, but there is nothing in her presentation to indicate infectious c irrhosis. We will monitor her closely. Further workup and management per clinical course. Dictated By: PAMELA HINES/ELKE Conf#: [id number] DID#: [id number]
[2016-08-26 08:30] LABS: CALCIUM 9.3 mg/dl (8.4-10.2); CREATININE 0.73 mg/dl (0.44-1.00); POTASSIUM 4.3 mmol/L (3.5-5.1)
[2016-08-26] MEDS: INSULIN ASPART [NOVOLOG] 3 ML PEN SC SCH ×4 (08:50→21:36)
--- NOTE | 2016-08-26 14:35 | PN ---
Date/Time of Note Date/Time of Note DATE: 08/26/16 TIME: 14:25 Assessment/Plan VTE Prophylaxis VTE Prophylaxis Intervention: heparin Lines/Catheters IV Catheter Type (from Nrsg): Saline Lock Assessment/Plan Assessment/Plan 1. Hyperglycemia, improving, increase lantus, needs premeal when start eating more 2. Chronic pancreatitis, hypertriglyceridemia-related, pain management 3. Hereditary hypertriglyceridemia, lipid panel 4. Dehydration, on IVF 5. High AG metabolic acidosis, resolved 6. Mild acute kidney injury, due to dehydration 7. Hypertension, controlled 8. DVT prophylaxis: heparin Subjective 24 Hr Interval Summary Free Text/Dictation abdominal pain with nausea Exam/Review of Systems Vital Signs Vitals Vital Signs Date Time Temp Pulse Resp B/P Pulse Ox O2 Delivery O2 Flow Rate FiO2 08/26/16 12:14 99 08/26/16 11:31 98.1 18 113/75 100 08/26/16 05:00 Nasal Cannula 2.0 Intake and Output 08/25/16 08/25/16 08/26/16 15:00 23:00 07:00 Intake Total 838.4 ml Balance 838.4 ml Exam Constitutional: alert, obese, oriented, well developed Psych: nl mood/affect, no complaints Head: atraumatic, normocephalic Eyes: EOMI, PERRL, nl conjunctiva, nl lids ENMT: nl external ears & nose, nl lips & teeth, nl nasal mucosa & septum Neck: non-tender, supple Respiratory: clear to auscultation, normal air movement, No congested cough, No crackles/rales, No diminished breath sounds, No intercostal retraction, No labored breathing, No other, No respirations, No tactile fremitus, No wheezing Cardiovascular: nl pulses, regular rate and rhythm, No S3, No S4, No bruits, No diastolic murmur, No edema, No gallop, No irregular rhythm, No jugular venous distention (JVD), No murmurs/extra sounds, No other, No rub, No systolic murmur Gastrointestinal: other (upper abdominal tenderness), soft, No ascites, No bowel sounds, No distended, No firm, No hepatomegaly, No mass , No rebound or guarding, No splenomegaly Results Result Diagram: 08/25/16 1740 08/26/16 0710 Results 24 hrs Laboratory Tests Test 08/25/16 16:48 08/25/16 17:28 08/25/16 17:37 08/25/16 17:40 Bedside Urine pH (LAB) 6.5 Bedside Urine Protein (LAB) Trace H Bedside Urine Glucose (UA) 0.50% H Bedside Urine Ketones (LAB) Negative Bedside Urine Blood Negative Bedside Urine Nitrite (LAB) Negative Bedside Urine Leukocyte Esterase (L Negative Bedside Glucose > 595 *H Blood Gas Specimen Source Blood arterial Arterial Blood Date Drawn 08/25/2016 5:42:13 PM Arterial Blood pH (Temp corrected) 7.437 Arterial Blood pCO2 (Temp correct) 32.2 L Arterial Blood pO2 (Temp corrected) 83.2 Arterial Blood HCO3 21.2 L Arterial Blood Base Excess -2.0 Arterial Blood Oxygen Saturation 95.8 Yobani Test ACCEPTAB Arterial Blood Gas Puncture Site Right Radial Arterial Blood Carboxyhemoglobin 0.5 Arterial Blood Methemoglobin 0.3 Blood Gas A-a O2 Differential 28.0 H Oxyhemoglobin Percent 95.0 Total Hemoglobin 14.7 Blood Gas Temperature 37.0 Blood Gas Modality ROOM AIR FiO2 21.0 Blood Gas Notified Whom M.D. Blood Gas Notified Time 08/25/2016 5:50:55 PM White Blood Count 8.8 Red Blood Count 4.60 Hemoglobin 13.7 Hematocrit 37.3 Mean Corpuscular Volume 81.1 L Mean Corpuscular Hemoglobin 29.8 Mean Corpuscular Hemoglobin Concent 36.7 Red Cell Distribution Width 13.1 Platelet Count 308 Mean Platelet Volume 10.7 H Neutrophils % 65.1 Lymphocytes % 28.6 Monocytes % 4.3 Eosinophils % 1.4 Basophils % 0.1 Nucleated Red Blood Cells % 0.0 Neutrophils # 5.7 Lymphocytes # 2.5 Monocytes # 0.4 Eosinophils # 0.1 Basophils # 0.0 Nucleated Red Blood Cells # 0.0 Sodium Level 122 L Potassium Level 4.8 Chloride Level 88 L Carbon Dioxide Level 16 L Anion Gap 23 H Blood Urea Nitrogen 42 H Creatinine 1.05 H Glucose Level 1045 *H Calcium Level 10.3 H Total Bilirubin 0.4 Direct Bilirubin 0.00 Indirect Bilirubin 0.4 Aspartate Amino Transf (AST/SGOT) 20 Alanine Aminotransferase (ALT/SGPT) 31 Alkaline Phosphatase 252 H Total Protein 7.9 Albumin 4.6 Globulin 3.30 H Albumin/Globulin Ratio 1.39 Lipase 138 Test 08/25/16 18:40 08/25/16 19:30 08/25/16 20:06 08/25/16 21:06 Lactic Acid Level 2.2 Phosphorus Level 6.6 H Magnesium Level 1.6 L Troponin I 0.020 Serum HCG, Qualitative NEGATIVE Bedside Glucose > 595 *H > 595 *H Test 08/25/16 21:15 08/25/16 21:25 08/25/16 22:50 08/25/16 23:20 Sodium Level 129 L 131 L Potassium Level 4.3 3.8 Chloride Level 94 L 98 Carbon Dioxide Level 19 L 20 L Anion Gap 20 H 17 H Blood Urea Nitrogen 39 H 38 H Creatinine 0.89 0.85 Glucose Level 666 #*H 494 #*H Calcium Level 9.8 9.9 Lactic Acid Level 1.1 2.1 Bedside Glucose 525 *H Test 08/26/16 00:26 08/26/16 02:02 08/26/16 03:00 08/26/16 03:39 Bedside Glucose 328 H 276 H 192 Sodium Level 138 Potassium Level 3.7 Chloride Level 103 Carbon Dioxide Level 23 Anion Gap 16 Blood Urea Nitrogen 33 H Creatinine 0.75 Glucose Level 181 # Calcium Level 10.1 Test 08/26/16 05:44 08/26/16 07:10 08/26/16 08:48 08/26/16 11:40 Bedside Glucose 261 H 293 H 228 H Sodium Level 135 Potassium Level 4.3 Chloride Level 105 Carbon Dioxide Level 18 L Anion Gap 16 Blood Urea Nitrogen 30 H Creatinine 0.73 Glucose Level 266 H Calcium Level 9.3 Medications Medications Current Medications Hydromorphone HCl 1 mg 1 mg Q4H PRN IV SEVERE PAIN Last administered on 13:24; Admin Dose 1 MG; Start 08/26/16 at 00:45 Sodium Chloride (NS) 1,000 ml @ 125 mls/hr Q8H IV Last administered on 05:01; Admin Dose 125 MLS/HR; Start 08/26/16 at 01:14 Ondansetron HCl (Zofran Inj) 4 mg Q6H PRN IV NAUSEA AND/OR VOMITING; Start 08/26 at 01:30 Lorazepam (Ativan) 1 mg Q2H PRN IV ANXIETY; Start 08/26/16 at 01:30 Dextrose (D50w Syringe) 25 ml Q15M PRN IV Till BS 80 mg/dL or above x2; Start 08/26/16 at 01:30 Dextrose (D50w Syringe) 50 ml Q15M PRN IV Till BS 80 mg/dL or above x2; Start 08/26/16 at 01:30 Insulin Glargine (Lantus) 20 unit DAILY@20 SC Last administered on 08/26/16t 03: 54; Admin Dose 20 UNIT; Start 08/26/16 at 01:30 Miscellaneous Information 1 ea NOTE XX ; Start 08/26/16 at 01:30 Glucose (Glutose) 15 gm Q15M PRN PO DECREASED GLUCOSE; Start 08/26/16 at 01:30 Glucose (Glutose) 22.5 gm Q15M PRN PO DECREASED GLUCOSE; Start 08/26/16 at 01:30 Dextrose (D50w Syringe) 25 ml Q15M PRN IV DECREASED GLUCOSE; Start 08/26/16 at 01:30 Dextrose (D50w Syringe) 50 ml Q15M PRN IV DECREASED GLUCOSE; Start 08/26/16 at 01:30 Glucagon (Glucagen) 1 mg Q15M PRN IM DECREASED GLUCOSE; Start 08/26/16 at 01:30 Glucose (Glutose) 15 gm Q15M PRN BUCCAL DECREASED GLUCOSE; Start 08/26/16 at 01: 30 Diphenhydramine HCl (Benadryl) 25 mg Q6H PRN PO ITCHING; Start 08/26/16 at 05:00 CAITLIN DILLON MD Aug 26, 2016 14:35
[2016-08-26] MEDS: ONDANSETRON 4 MG INJ IV PRN (15:05)
[2016-08-26] MEDS: HEPARIN 5,000 UNIT/0.5 ML VIAL SC SCH ×2 (15:12→22:23)
[2016-08-26] MEDS: DIPHENHYDRAMINE 50 MG INJ IV PRN ×2 (17:55→21:57)
[2016-08-26] MEDS: HYDROmorphONE 2 MG/ML SYG IV PRN ×2 (17:56→21:57)
[2016-08-27] VITALS (13 sets, daily range): BP systolic 96–128; BP diastolic 54–75; PULSE 74–105; RESP 17–20
[2016-08-27] MEDS: SOD CHLORIDE 0.9% 1,000 ML IV SCH ×3 (01:14→17:14)
[2016-08-27] MEDS: HYDROmorphONE 2 MG/ML SYG IV PRN ×6 (02:13→22:53)
[2016-08-27] MEDS: DIPHENHYDRAMINE 50 MG INJ IV PRN ×6 (02:38→22:53)
[2016-08-27] MEDS: ONDANSETRON 4 MG INJ IV PRN ×2 (06:05→18:45)
[2016-08-27] MEDS: INSULIN ASPART [NOVOLOG] 3 ML PEN SC SCH ×4 (07:57→20:44)
[2016-08-27 08:31] LABS: ADD SCAN DIFF NO
[2016-08-27 08:36] LABS: HEMATOCRIT 35.2 % (37.0-47.0); HEMOGLOBIN 11.9 g/dl (12.0-16.0); MEAN CORPUSCULAR HEMOGLOBIN 28.9 pg (29.0-33.0); MEAN CORPUSCULAR HGB CONC 33.8 g/dl (32.0-37.0); MEAN CORPUSCULAR VOLUME 85.4 fl (82.0-101.0); MEAN PLATELET VOLUME 9.9 fl (7.4-10.4); PLATELET COUNT 261 10^3/UL (140-415); RED BLOOD COUNT 4.12 10^6/ul (4.20-5.40); RED CELL DISTRIBUTION WIDTH 13.7 % (11.5-14.5); WHITE BLOOD COUNT 6.1 10^3/ul (4.8-10.8)
[2016-08-27 09:01] LABS: ALBUMIN 3.7 g/dl (3.3-4.9); ALBUMIN/GLOBULIN RATIO 1.37; BILIRUBIN,INDIRECT 0.2 mg/dl (0-1.1); BILIRUBIN,TOTAL 0.2 mg/dl (0.2-1.3); CALCIUM 8.4 mg/dl (8.4-10.2); CREATININE 0.53 mg/dl (0.44-1.00); POTASSIUM 3.9 mmol/L (3.5-5.1); TOTAL PROTEIN 6.4 g/dl (6.1-8.1)
[2016-08-27 09:04] LABS: NEUTROPHILS % 41.2 % (39.0-77.0)
[2016-08-27 09:05] LABS: BASOPHILS % 0.2 % (0.0-2.0); EOSINOPHILS # 0.3 10^3/ul (0.0-0.5); EOSINOPHILS % 4.4 % (0.0-7.0); LYMPHOCYTES # 3.1 10^3/ul (0.8-2.9); LYMPHOCYTES % 50.1 % (15.0-51.0); MONOCYTE # 0.2 10^3/ul (0.3-0.9); MONOCYTES % 3.8 % (0.0-11.0); NEUTROPHIL # 2.5 10^3/ul (1.6-7.5)
[2016-08-27] MEDS: HEPARIN 5,000 UNIT/0.5 ML VIAL SC SCH ×2 (09:32→20:34)
--- NOTE | 2016-08-27 11:52 | PN ---
Date/Time of Note Date/Time of Note DATE: 08/27/16 TIME: 11:46 Assessment/Plan VTE Prophylaxis VTE Prophylaxis Intervention: heparin Lines/Catheters IV C[facility] Type [facility]from [facility] Peripheral IV Assessment/Plan Problems: (1) Migraine equivalent syndrome Status: Chronic Comment: This patient has history of migraines is actually having more than 4 migraines per month. In addition is entirely possible that her abdominal symptoms are actually represent migraine equivalent syndrome cyclical vomiting disorder. This is managed in the same prophylactic fashion as migraine syndrome. She will start on topiramate now. Careful review of the entire history of admissions to this facility will demonstrate many many admissions labeled as pancreatitis all of which except 2 had normal amylase and lipase. (2) Undifferentiated abdominal pain Status: Acute Comment: I suspect her abdominal pain actually is a migraine equivalent syndrome (3) Type 2 diabetes mellitus with hyperosmolar nonketotic hyperglycemia Status: Acute Comment: She has severe hyper glycemia due to significant insulin resistance syndrome. 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 Going to add in or return her metformin and titrate to effect. Please note she absolutely is positively not an appropriate candidate for GLP-1 drugs or DPP 4 inhibitors (4) Asthma Status: Chronic Comment: She is off of her treatment for this and needs to be returned to treatment for asthma. Qualifiers: Asthma severity: moderate persistent Subjective 24 Hr Interval Summary Free Text/Dictation Patient reports she is still having abdominal pain and some wheezing and migraines Constitutional: no complaints (Denies fevers chills or sweats) Respiratory: shortness of breath, wheezing Cardiovascular: no complaints Gastrointestinal: nausea, pain Genitourinary: no complaints Exam/Review of Systems Vital Signs Vitals Vital Signs Date Time Temp Pulse Resp B/P Pulse Ox O2 Delivery O2 Flow Rate FiO2 08/27/16 08:08 87 08/27/16 07:57 98.0 19 96/54 95 08/26/16 20:00 Nasal Cannula 2.0 Intake and Output 08/26/16 08/26/16 08/27/16 14:59 22:59 06:59 Intake Total 240 ml 725 ml Balance 240 ml 725 ml Exam Pleasant [place] woman known to me from the remote past Constitutional: alert, oriented Respiratory: wheezing Cardiovascular: nl pulses, regular rate and rhythm Gastrointestinal: nl liver, spleen, non-tender, soft Results Result Diagram: 08/27/16 0740 08/27/16 0740 Results 24 hrs Laboratory Tests Test 08/26/16 18:01 08/26/16 21:27 08/27/16 07:40 08/27/16 07:48 Bedside Glucose 204 186 239 H White Blood Count 6.1 # Red Blood Count 4.12 L Hemoglobin 11.9 L Hematocrit 35.2 L Mean Corpuscular Volume 85.4 Mean Corpuscular Hemoglobin 28.9 L Mean Corpuscular Hemoglobin Concent 33.8 Red Cell Distribution Width 13.7 Platelet Count 261 Mean Platelet Volume 9.9 Neutrophils % 41.2 Band Neutrophils % 0.0 Lymphocytes % 50.1 Monocytes % 3.8 Eosinophils % 4.4 Basophils % 0.2 Nucleated Red Blood Cells % 0.0 Neutrophils # 2.5 Lymphocytes # 3.1 H Monocytes # 0.2 L Eosinophils # 0.3 Basophils # 0.0 Nucleated Red Blood Cells # 0.0 Sodium Level 136 Potassium Level 3.9 Chloride Level 108 Carbon Dioxide Level 22 Anion Gap 10 # Blood Urea Nitrogen 11 # Creatinine 0.53 Glucose Level 221 H Calcium Level 8.4 Total Bilirubin 0.2 Direct Bilirubin 0.00 Indirect Bilirubin 0.2 Aspartate Amino Transf (AST/SGOT) 17 Alanine Aminotransferase (ALT/SGPT) 26 Alkaline Phosphatase 79 # Total Protein 6.4 # Albumin 3.7 Globulin 2.70 Albumin/Globulin Ratio 1.37 Medications Medications Current Medications Sodium Chloride (NS) 1,000 ml @ 125 mls/hr Q8H IV Last administered on 15:12; Admin Dose 125 MLS/HR; Start 08/26/16 at 01:14 Ondansetron HCl (Zofran Inj) 4 mg Q6H PRN IV NAUSEA AND/OR VOMITING Last administered on 08/27/16 06:05; Admin Dose 4 MG; Start 08/26/16 at 01:30 Lorazepam (Ativan) 1 mg Q2H PRN IV ANXIETY; Start 08/26/16 at 01:30 Dextrose (D50w Syringe) 25 ml Q15M PRN IV Till BS 80 mg/dL or above x2; Start 08/26/16 at 01:30 Dextrose (D50w Syringe) 50 ml Q15M PRN IV Till BS 80 mg/dL or above x2; Start 08/26/16 at 01:30 Miscellaneous Information 1 ea NOTE XX ; Start 08/26/16 at 01:30 Glucose (Glutose) 15 gm Q15M PRN PO DECREASED GLUCOSE; Start 08/26/16 at 01:30 Glucose (Glutose) 22.5 gm Q15M PRN PO DECREASED GLUCOSE; Start 08/26/16 at 01:30 Dextrose (D50w Syringe) 25 ml Q15M PRN IV DECREASED GLUCOSE; Start 08/26/16 at 01:30 Dextrose (D50w Syringe) 50 ml Q15M PRN IV DECREASED GLUCOSE; Start 08/26/16 at 01:30 Glucagon (Glucagen) 1 mg Q15M PRN IM DECREASED GLUCOSE; Start 08/26/16 at 01:30 Glucose (Glutose) 15 gm Q15M PRN BUCCAL DECREASED GLUCOSE; Start 08/26/16 at 01: 30 Hydromorphone HCl (Dilaudid) 1.5 mg Q4H PRN IV SEVERE PAIN Last administered on 08/27/16 10:12; Admin Dose 1.5 MG; Start 08/26/16 at 15:00 Insulin Glargine (Lantus) 26 unit DAILY@20 SC Last administered on 08/26/16 21: 37; Admin Dose 26 UNIT; Start 08/26/16 at 20:00 Heparin Sodium (Porcine) (Heparin (5000 Units/0.5 ml)) 5,000 unit BID SC Last administered on 08/27/16 09:32; Admin Dose 5,000 UNIT; Start 08/26/16 at 15:00 Diphenhydramine HCl (Benadryl) 25 mg Q4H PRN IV ITCHING Last administered on 10:12; Admin Dose 25 MG; Start 08/27/16 at 02:10 ROLANDO PERRY MD Aug 27, 2016 11:52
[2016-08-27] MEDS: FISH OIL 1,000 MG CAP PO SCH ×2 (12:27→20:41)
[2016-08-27] MEDS: metFORMIN 500 MG TAB PO SCH ×2 (12:27→17:41)
[2016-08-27] MEDS: TOPIRAMATE 25 MG TAB PO SCH ×2 (13:56→20:41)
[2016-08-27] MEDS: SALMETEROL/FLUTICASONE 250/50 INHA INH SCH ×2 (13:56→22:58)
[2016-08-27] MEDS: GEMFIBROZIL 600 MG TAB PO SCH ×2 (13:57→17:41)
[2016-08-27] MEDS ORDERED: INSULIN ASPART [NOVOLOG] 3 ML PEN SC ONE (20:30)
[2016-08-27] MEDS: INSULIN GLARGINE [LANtus] 3 ML PEN SC SCH (20:36)
[2016-08-28] VITALS (11 sets, daily range): BP systolic 102–127; BP diastolic 60–82; PULSE 74–96; RESP 18–20
[2016-08-28] MEDS: ZOLPIDEM 5 MG TAB PO PRN ×2 (00:24→23:40)
[2016-08-28] MEDS: SOD CHLORIDE 0.9% 1,000 ML IV SCH ×4 (01:14→23:41)
[2016-08-28] MEDS ORDERED: INSULIN ASPART [NOVOLOG] 3 ML PEN SC ONE ×2 (02:30→20:30)
[2016-08-28] MEDS: HYDROmorphONE 2 MG/ML SYG IV PRN ×6 (02:53→23:55)
[2016-08-28] MEDS: DIPHENHYDRAMINE 50 MG INJ IV PRN ×6 (02:53→23:55)
[2016-08-28] MEDS: ONDANSETRON 4 MG INJ IV PRN ×2 (06:50→20:01)
[2016-08-28] MEDS: GEMFIBROZIL 600 MG TAB PO SCH ×2 (06:52→17:20)
[2016-08-28] MEDS: metFORMIN 500 MG TAB PO SCH ×2 (07:56→17:20)
[2016-08-28] MEDS: INSULIN ASPART [NOVOLOG] 3 ML PEN SC SCH ×6 (07:56→20:30)
[2016-08-28] MEDS: HEPARIN 5,000 UNIT/0.5 ML VIAL SC SCH ×2 (08:25→20:27)
[2016-08-28] MEDS: TOPIRAMATE 25 MG TAB PO SCH ×2 (08:29→20:28)
[2016-08-28] MEDS: FISH OIL 1,000 MG CAP PO SCH ×2 (08:29→20:27)
[2016-08-28] MEDS: SALMETEROL/FLUTICASONE 250/50 INHA INH SCH ×2 (08:29→20:30)
--- NOTE | 2016-08-28 09:24 | PN ---
Date/Time of Note Date/Time of Note DATE: 08/28/16 TIME: 09:19 Assessment/Plan VTE Prophylaxis VTE Prophylaxis Intervention: other Lines/Catheters IV C[facility] Type (from [facility] Saline Lock Assessment/Plan Problems: (1) Asthma Status: Chronic Comment: Patient's breathing is much improved with usage of the Advair as a controller medication. Expect that this will continue to improve and this therapy should be maintained Qualifiers: Asthma severity: moderate persistent (2) Epigastric abdominal pain Status: Acute Comment: Her abdominal pain is probably multifactorial. In review of her entire [facility] records she has had 6 clear-cut episodes of pancreatitis including formation of pancreatic pseudocyst. Undoubtedly there is a bit of that going on now which is being driven by her hypertriglyceridemia. However there is also probably some abdominal pain this is equivalent of migraine syndrome. Will need to treat all of the above to resolve these issues. At this time even though she is getting better she is still using a lot of pain medications but we may be making improvements i.e. we should be able get her out of fear about 72 hours (3) Migraine equivalent syndrome Status: Chronic Comment: Tolerating the topiramate without complications. Continue this. It may be appropriate to titrate up to 50 mg twice daily in roughly a week (4) Hypertriglyceridemia Status: Chronic Comment: The regimen that she was using was in sufficient. She is now on a more full dose therapy. This should be continued. Please note there is still room to add in very list of very low-dose niacin although she does not tolerate the higher dosages of niacin. Please note this is lipoprotein lipase deficiency (5) Undifferentiated abdominal pain Status: Acute Comment: As above multifactorial (6) Type 2 diabetes mellitus Status: Chronic Comment: She should be insulin treated as this will help lower the triglycerides which are causing significant issues for her. Will adjust the insulin dosing to get her under better control Qualifiers: Diabetes mellitus complication status: without complication Diabetes mellitus halfway insulin use: with halfway use Qualified Code: E11.9 - Type 2 diabetes mellitus without complication, with long-term current use of insulin (7) Hiatal hernia Status: Chronic Comment: Noted and stable Subjective 24 Hr Interval Summary Free Text/Dictation Patient reports she is making some progress. Constitutional: no complaints (Denies fevers chills or sweats) Respiratory: no complaints (Significantly improved breathing and decreased wheezing) Cardiovascular: no complaints Gastrointestinal: nausea (Nausea persists but is less common), pain (Pain persists but is decreasing.) Genitourinary: no complaints Neurologic: headache (Migraine symptoms are decreasing) Exam/Review of Systems Vital Signs Vitals Vital Signs Date Time Temp Pulse Resp B/P Pulse Ox O2 Delivery O2 Flow Rate FiO2 08/28/16 08:12 74 08/28/16 08:04 98.0 18 102/60 97 08/27/16 12:52 Nasal Cannula 2.0 Intake and Output 08/27/16 08/27/16 08/28/16 15:00 23:00 07:00 Intake Total 600 ml 750 ml Balance 600 ml 750 ml Exam Constitutional: alert, oriented Neck: non-tender, supple Respiratory: clear to auscultation, normal air movement Cardiovascular: nl pulses, regular rate and rhythm Gastrointestinal: nl liver, spleen, non-tender, soft Results Result Diagram: 08/27/16 0740 08/27/16 0740 Results 24 hrs Laboratory Tests Test 08/27/16 12:12 08/27/16 17:21 08/27/16 20:26 08/28/16 02:13 Bedside Glucose 250 H 385 H 360 H 307 H Test 08/28/16 07:44 Bedside Glucose 226 H Medications Medications Current Medications Sodium Chloride (NS) 1,000 ml @ 125 mls/hr Q8H IV Last administered on 08:34; Admin Dose 125 MLS/HR; Start 08/26/16 at 01:14 Ondansetron HCl (Zofran Inj) 4 mg Q6H PRN IV NAUSEA AND/OR VOMITING Last administered on 08/28/16 06:50; Admin Dose 4 MG; Start 08/26/16 at 01:30 Lorazepam (Ativan) 1 mg Q2H PRN IV ANXIETY; Start 08/26/16 at 01:30 Dextrose (D50w Syringe) 25 ml Q15M PRN IV Till BS 80 mg/dL or above x2; Start 08/26/16 at 01:30 Dextrose (D50w Syringe) 50 ml Q15M PRN IV Till BS 80 mg/dL or above x2; Start 08/26/16 at 01:30 Miscellaneous Information 1 ea NOTE XX ; Start 08/26/16 at 01:30 Glucose (Glutose) 15 gm Q15M PRN PO DECREASED GLUCOSE; Start 08/26/16 at 01:30 Glucose (Glutose) 22.5 gm Q15M PRN PO DECREASED GLUCOSE; Start 08/26/16 at 01:30 Dextrose (D50w Syringe) 25 ml Q15M PRN IV DECREASED GLUCOSE; Start 08/26/16 at 01:30 Dextrose (D50w Syringe) 50 ml Q15M PRN IV DECREASED GLUCOSE; Start 08/26/16 at 01:30 Glucagon (Glucagen) 1 mg Q15M PRN IM DECREASED GLUCOSE; Start 08/26/16 at 01:30 Glucose (Glutose) 15 gm Q15M PRN BUCCAL DECREASED GLUCOSE; Start 08/26/16 at 01: 30 Hydromorphone HCl (Dilaudid) 1.5 mg Q4H PRN IV SEVERE PAIN Last administered on 08/28/16 06:55; Admin Dose 1.5 MG; Start 08/26/16 at 15:00 Insulin Glargine (Lantus) 26 unit DAILY@20 SC Last administered on 08/27/16 20 :36; Admin Dose 26 UNIT; Start 08/26/16 at 20:00 Heparin Sodium (Porcine) (Heparin (5000 Units/0.5 ml)) 5,000 unit BID SC Last administered on 08/28/16 08:25; Admin Dose 5,000 UNIT; Start 08/26/16 at 15:00 Diphenhydramine HCl (Benadryl) 25 mg Q4H PRN IV ITCHING Last administered on 06:55; Admin Dose 25 MG; Start 08/27/16 at 02:10 Topiramate (Topamax) 25 mg BID PO Last administered on 08/28/16 08:29; Admin Dose 25 MG; Start 08/27/16 at 13:00 Salmeterol Xinafoate/ Fluticasone (Advair 250/50 Diskus) 1 inh BID INH Last administered on 08/28/16 08:29; Admin Dose 1 INH; Start 08/27/16 at 13:00 Fish Oil (Fish Oil) 2,000 mg BID PO Last administered on 08/28/16 08:29; Admin Dose 2,000 MG; Start 08/27/16 at 12:00 Zolpidem Tartrate (Ambien) 10 mg HS PRN PO INSOMNIA Last administered on t 00:24; Admin Dose 10 MG; Start 08/28/16 at 00:30 ROALNDO PERRY MD Aug 28, 2016 09:23
[2016-08-28] MEDS ORDERED: INSULIN GLARGINE [LANtus] 3 ML PEN SC SCH ×2 (20:00→20:30)
[2016-08-29] VITALS (8 sets, daily range): BP systolic 117–136; BP diastolic 57–91; PULSE 75–100; RESP 18–21
[2016-08-29] MEDS ORDERED: INSULIN ASPART [NOVOLOG] 3 ML PEN SC ONE (01:30)
[2016-08-29] MEDS: DIPHENHYDRAMINE 50 MG INJ IV PRN ×3 (04:16→12:04)
[2016-08-29] MEDS: HYDROmorphONE 2 MG/ML SYG IV PRN ×3 (04:16→12:02)
[2016-08-29] MEDS ORDERED: INSULIN GLARGINE [LANtus] 3 ML PEN SC SCH ×2 (08:00→20:00)
[2016-08-29] MEDS: GEMFIBROZIL 600 MG TAB PO SCH (08:38)
[2016-08-29] MEDS: metFORMIN 500 MG TAB PO SCH (08:38)
[2016-08-29] MEDS: INSULIN ASPART [NOVOLOG] 3 ML PEN SC SCH ×4 (08:41→12:17)
[2016-08-29] MEDS: HEPARIN 5,000 UNIT/0.5 ML VIAL SC SCH (09:00)
[2016-08-29] MEDS: ONDANSETRON 4 MG INJ IV PRN (09:10)
[2016-08-29] MEDS: FISH OIL 1,000 MG CAP PO SCH (10:11)
[2016-08-29] MEDS: SALMETEROL/FLUTICASONE 250/50 INHA INH SCH (10:12)
[2016-08-29] MEDS: TOPIRAMATE 25 MG TAB PO SCH (10:12)
--- NOTE | 2016-08-29 14:49 | DS ---
DATE OF ADMISSION: 08/26/2016 DATE OF DISCHARGE: 08/29/2016 (Left against medical advice.) DIAGNOSES 1. Hyperglycemia secondary to uncontrolled type 2 diabetes mellitus. 2. Asthma. 3. Hypertriglyceridemia. 4. Chronic pancreatitis. 5. Anion gap metabolic acidosis secondary to uncontrolled diabetes. 6. Obesity. 7. Migraine headache. HOSPITAL COURSE: This is a 36-year-old female with past medical history of type 2 diabetes mellitus, chronic pancreatitis, pancreatic pseudocyst and obesity who came to the emergency room with chief complaint of abdominal pain. The patient was noticed to have a random blood glucose of 1045 in the emergency room. The patient had no evidence of any ketosis. Provided the patient's history of present illness, her comorbidities and the diagnostic findings, a clinical decision was made to admit the patient to inpatient setting to have her further evaluated. The patient was admitted to inpatient telemetry floor. The patient was maintained on insulin drip in the ER and later was transitioned to subcutaneous insulin. The patient's insulin dosing was adjusted multiple times to obtain optimal blood sugar control. The patient was being followed by Endocrinology during the weekend, who adjusted the patient's insulin. The patient has underlying chronic pancreatitis. The patient's lipase level was within normal limits. The patient has underlying severe hypertriglyceridemia. The patient was maintained on fibrates and fish oil. The patient's abdominal pain resolved with improvement in the patient's blood sugars. The patient was started on topiramate for migraine equivalent syndrome. The patient continued to have high blood sugars despite adjusting the insulin dosing multiple times. Meanwhile, the patient decided to leave the hospital against medical advice. The patient was informed about the consequences of leaving the hospital against medical advice including the possibility of . No discharge planning was done since the patient left the hospital against medical advice. PERTINENT LABORATORY AND DIAGNOSTIC DATA: 1. Latest CBC: WBC 6.1, hemoglobin 11.9, hematocrit 35.2, platelet count 261. 2. Latest random blood glucose 280. 3. Fasting lipid panel: Triglycerides 143, total cholesterol 233, LDL could not be calculated, HDL 33. The case and management of this patient was fully discussed with Dr. Kelsey. GRETA KELSEY MD, AM/ELKE Conf#: [id number] DID#: [id number] [facility]
== END 2016-08-29 13:25 | disposition left against medical advice (07) | DRG 637 ==
LOC: FTE 16:23 → MS4 08-26 01:14
PROVIDERS: ADMIT Internal Medicine; ATTEND Internal Medicine
DX: E11.65 Type 2 diabetes mellitus with hyperglycemia (principal); E11.00 Type 2 diabetes mellitus with hyperosmolarity without nonketotic hyperglycemic-hyperosmolar coma (NKHHC); N17.9 Acute kidney failure, unspecified; E87.2 Acidosis; K86.1 Other chronic pancreatitis; E78.1 Pure hyperglyceridemia; E86.0 Dehydration; G43.109 Migraine with aura, not intractable, without status migrainosus; I10 Essential (primary) hypertension; J45.40 Moderate persistent asthma, uncomplicated; K44.9 Diaphragmatic hernia without obstruction or gangrene; E66.9 Obesity, unspecified; Z68.29 Body mass index [BMI] 29.0-29.9, adult; Z79.4 Long term (current) use of insulin
CPT/HCPCS: 36415; 36600; 71010; 80048; 80053; 80061; 81003; 82803; 82962; 83605; 83690; 83735; 84100; 84484; 84703; 85025; 93005; 96372; 96374; 96375; 96376; J1170; J1200; J1644; J1815; J2405; J7030; J7120

== ENCOUNTER 2016-09-06 13:30 | Emergency (ER) | payer OTHER ==
[~2016-09-06] VITALS: Ht 162.6 cm; Wt 80.0 kg
[~2016-09-06 13:30] MED LIST changes: +INSU200I SQ; -NOVO3I SC
--- NOTE | 2016-09-06 13:38 | ERA ---
ER Documentation Chief Complaint Date/Time DATE: 09/06/16 TIME: 13:38 Chief Complaint Abdominal pain HPI The patient is 36-year-old female, presenting to the ER because of chronic abdominal pain that is worse last night. She has presented to the ER multiple times for similar symptoms, complaint of nausea and vomiting, mostly mucus, denies diarrhea, constipation, dysuria, chest pain, dyspnea. She does not smoke nor drink. She had ultrasound of the gallbladder 2 weeks ago that was unremarkable Past medical history: Hypertriglyceridemia, diabetes mellitus, history of pancreatitis, hypertension, asthma, migraine Past surgical history: ROS All systems reviewed and are negative except as per history of present illness. Medications Home Meds Active Scripts Hydrocodone/Acetaminophen (Bethesda 10-325 Tablet) 1 Each Tablet, 1 TAB PO Q6H Y for PAIN, #7 TAB Prov:MARI SPICER MD 09/06/16 Ondansetron (Ondansetron Odt) 4 Mg Tab.rapdis, 4 MG PO Q6H Y for NAUSEA AND/OR VOMITING, #10 TAB Prov:MARI SPICER MD 09/06/16 Pantoprazole (Protonix) 40 Mg Tabec, 40 MG PO BID, #20 TAB Prov:MARI SPICER MD 09/06/16 Fish Oil* (Fish Oil*) 1,000 Mg Cap, 2000 MG PO BID, #120 CAP Prov:ALYSON FIELD MD 08/14/14 Reported Medications Insulin Glargine,Hum.rec.anlog (Toujeo Solostar) 300 Unit/1 Ml Insuln.pen, 75 UNIT SQ QHS 08/25/16 Insulin Lispro (Humalog Kwikpen) 200 Unit/1 Ml Insuln.pen, 0 SQ SLIDING SCALE Y for WITH MEALS, EA 08/25/16 Zolpidem Tartrate* (Ambien*) 10 Mg Tablet, 10 MG PO QHS Y for INSOMNIA, TAB 06/23/16 Atenolol* (Atenolol*) 50 Mg Tablet, 50 MG PO DAILY, #30 TAB 06/23/16 Fenofibrate Nanocrystallized* (Tricor*) 145 Mg Tablet, 145 MG PO DAILY, TAB 01/21/14 Allergies Allergies: Coded Allergies: Iodinated Contrast Media - Oral and (Verified Allergy, Mild, ITCHINESS, ) morphine (Verified Allergy, Unknown, BLISTERS, 09/06/16) PMhx/Soc History of Surgery: Yes (LAP BAND,) Anesthesia Reaction: No Hx Neurological Disorder: No Hx Respiratory Disorders: No Hx Cardiac Disorders: No Hx Psychiatric Problems: No Hx Alcohol Use: No (DENIES) Hx Substance Use: No Hx Tobacco Use: No (DENIES) Physical Exam Vitals Vital Signs Date Time Temp Pulse Resp B/P Pulse Ox O2 Delivery O2 Flow Rate FiO2 09/06/16 17:18 98.2 89 18 132/77 98 Room Air 09/06/16 14:07 99.1 129 20 152/75 98 Physical Exam Const: No acute distress. Head: Atraumatic. Eyes: Normal Conjunctiva. ENT: Normal External Ears, Nose and Mouth. Neck: Full range of motion. No meningismus. Resp: Clear to auscultation bilaterally. Cardio: Regular rate and rhythm. Abd: Soft, non distended, normal bowel sounds, vague and minimal diffuse abdominal tenderness, no rigidity, rebound, CVA tenderness Skin: No petechiae or rashes. Back: No midline or flank tenderness. Ext: No cyanosis, or edema. Neur: Awake and alert. No focal deficit Psych: Normal Mood and Affect. Result Diagram: 09/06/16 1355 09/06/16 1355 Results 24 hrs Laboratory Tests Test 09/06/16 13:55 09/06/16 14:08 09/06/16 14:16 09/06/16 16:13 White Blood Count 9.110^3/ul Red Blood Count 4.9910^6/ul Hemoglobin 14.8g/dl Hematocrit 40.9% Mean Corpuscular Volume 82.0fl Mean Corpuscular Hemoglobin 29.7pg Mean Corpuscular Hemoglobin Concent 36.2g/dl Red Cell Distribution Width 13.4% Platelet Count 38060^3/UL Mean Platelet Volume 10.2fl Neutrophils % 61.2% Lymphocytes % 32.2% Monocytes % 3.7% Eosinophils % 2.2% Basophils % 0.1% Nucleated Red Blood Cells % 0.0/100WBC Neutrophils # 5.610^3/ul Lymphocytes # 2.910^3/ul Monocytes # 0.310^3/ul Eosinophils # 0.210^3/ul Basophils # 0.010^3/ul Nucleated Red Blood Cells # 0.010^3/ul Sodium Level 135mmol/L Potassium Level 3.9mmol/L Chloride Level 101mmol/L Carbon Dioxide Level 17mmol/L Anion Gap 21 Blood Urea Nitrogen 19mg/dl Creatinine 0.82mg/dl Glucose Level 429mg/dl Calcium Level 9.6mg/dl Total Bilirubin 0.2mg/dl Direct Bilirubin 0.00mg/dl Indirect Bilirubin 0.2mg/dl Aspartate Amino Transf (AST/SGOT) 25IU/L Alanine Aminotransferase (ALT/SGPT) 31IU/L Alkaline Phosphatase 160IU/L Total Protein 8.0g/dl Albumin 4.5g/dl Globulin 3.50g/dl Albumin/Globulin Ratio 1.28 Lipase 99U/L Serum HCG, Qualitative NEGATIVE Bedside Urine pH (LAB) 5.5 Bedside Urine Protein (LAB) 2+ Bedside Urine Glucose (UA) 0.50% Bedside Urine Ketones (LAB) Negative Bedside Urine Blood Trace-lysed Bedside Urine Nitrite (LAB) Negative Bedside Urine Leukocyte Esterase (L Negative Bedside Glucose 385mg/dL 162mg/dL Current Medications Medications (Trade) Dose Ordered Sig/Bob Route PRN Reason Start Time Stop Time Status Last Admin Dose Admin Sodium Chloride (NS) 1,000 ml @ 1,000 mls/hr Q1H STAT IV 09/06/16 13:39 09/06/16 14:38 DC 09/06/16 13:59 Ondansetron HCl (Zofran Inj) 4 mg ONCE STAT IV 09/06/16 13:39 09/06/16 13:41 DC 09/06/16 13:59 Hydromorphone HCl (Dilaudid) 1 mg ONCE STAT IV 09/06/16 14:36 09/06/16 14:37 DC 09/06/16 14:43 Diphenhydramine HCl 50 mg 50 mg ONCE ONCE IV 09/06/16 15:00 09/06/16 15:01 DC 09/06/16 14:43 Sodium Chloride (NS) 1,000 ml @ 1,000 mls/hr Q1H ONCE IV 09/06/16 16:00 09/06/16 16:59 DC 09/06/16 16:16 Hydromorphone HCl (Dilaudid) 1 mg ONCE STAT IV 09/06/16 15:41 09/06/16 15:49 DC 09/06/16 16:06 Ondansetron HCl (Zofran Inj) 4 mg ONCE STAT IV 09/06/16 15:41 09/06/16 15:46 DC 09/06/16 16:06 Insulin Human Lispro (Humalog) 12 unit ONCE STAT SC 09/06/16 15:41 09/06/16 16:26 DC Miscellaneous Information 1 ea NOTE XX 09/06/16 16:00 09/06/16 17:38 DC Glucose (Glutose) 15 gm Q15M PRN PO DECREASED GLUCOSE 09/06/16 16:00 09/06/16 17:38 DC Glucose (Glutose) 22.5 gm Q15M PRN PO DECREASED GLUCOSE 09/06/16 16:00 09/06/16 17:38 DC Dextrose (D50w Syringe) 25 ml Q15M PRN IV DECREASED GLUCOSE 09/06/16 16:00 09/06/16 17:38 DC Dextrose (D50w Syringe) 50 ml Q15M PRN IV DECREASED GLUCOSE 09/06/16 16:00 09/06/16 17:38 DC Glucagon (Glucagen) 1 mg Q15M PRN IM DECREASED GLUCOSE 09/06/16 16:00 09/06/16 17:38 DC Glucose (Glutose) 15 gm Q15M PRN BUCCAL DECREASED GLUCOSE 09/06/16 16:00 09/06/16 17:38 DC Procedures/MDM MEDICAL MAKING DECISION: The patient is a 35-year-old female, presenting with acute on chronic abdominal pain of unclear etiology, most likely due to chronic pancreatitis, questionable drug-seeking behavior, acute diabetic hyperglycemia. She was treated with Dilaudid 1 mg IV 2 for pain and Zofran 4 IV 2 for nausea and Benadryl 50 mg IV for her pruritus from Dilaudid, 2 L normal saline for acute dehydration and acute diabetic hyperglycemia. Repeat Accu-Chek was 167. She is stable for outpatient follow-up The differential diagnoses considered include but are not limited to HHS, DKA, cholelithiasis, cholecystitis, cystitis, pancreatitis, hepatitis, gastritis, peptic ulcer disease, gastric ulcer, appendicitis, diverticulitis, cholangitis, choledocholithiasis, partial small bowel obstruction. Departure Diagnosis: Primary Impression: Abdominal pain Condition: Good Comments He was discharged with Protonix, Zofran, Bethesda I discussed the findings with the patient. I advised the patient to follow-up with the primary physician in the morning, sooner if needed and return if any concern. MARI SPICER MD Sep 06, 2016 13:38
[2016-09-06] MEDS ORDERED: SOD CHLORIDE 0.9% 1,000 ML IV STA (13:39)
[2016-09-06] MEDS ORDERED: ONDANSETRON 4 MG INJ IV STA ×2 (13:39→15:41)
[2016-09-06 14:05] LABS: URINE BLOOD (Dip) POC Trace-lysed (NEGATIVE)
[2016-09-06 14:07] VITALS: Ht 162.6 cm; Wt 80.0 kg
[2016-09-06 14:33] LABS: ADD SCAN DIFF NO
[2016-09-06] MEDS ORDERED: HYDROmorphONE 1 MG/ML SYG IV STA ×2 (14:36→15:41)
[2016-09-06 14:39] LABS: BASOPHILS % 0.1 % (0.0-2.0); EOSINOPHILS # 0.2 10^3/ul (0.0-0.5); EOSINOPHILS % 2.2 % (0.0-7.0); HEMATOCRIT 40.9 % (37.0-47.0); HEMOGLOBIN 14.8 g/dl (12.0-16.0); LYMPHOCYTES # 2.9 10^3/ul (0.8-2.9); LYMPHOCYTES % 32.2 % (15.0-51.0); MEAN CORPUSCULAR HEMOGLOBIN 29.7 pg (29.0-33.0); MEAN CORPUSCULAR HGB CONC 36.2 g/dl (32.0-37.0); MEAN PLATELET VOLUME 10.2 fl (7.4-10.4); MONOCYTE # 0.3 10^3/ul (0.3-0.9); MONOCYTES % 3.7 % (0.0-11.0); NEUTROPHIL # 5.6 10^3/ul (1.6-7.5); NEUTROPHILS % 61.2 % (39.0-77.0); PLATELET COUNT 278 10^3/UL (140-415); RED BLOOD COUNT 4.99 10^6/ul (4.20-5.40); RED CELL DISTRIBUTION WIDTH 13.4 % (11.5-14.5); WHITE BLOOD COUNT 9.1 10^3/ul (4.8-10.8)
[2016-09-06 15:00] LABS: ALBUMIN 4.5 g/dl (3.3-4.9); ALBUMIN/GLOBULIN RATIO 1.28; BILIRUBIN,INDIRECT 0.2 mg/dl (0-1.1); BILIRUBIN,TOTAL 0.2 mg/dl (0.2-1.3); CALCIUM 9.6 mg/dl (8.4-10.2); CREATININE 0.82 mg/dl (0.44-1.00); POTASSIUM 3.9 mmol/L (3.5-5.1)
[2016-09-06] MEDS ORDERED: DIPHENHYDRAMINE 50 MG INJ IV ONE (15:00)
[2016-09-06] MEDS ORDERED: INSULIN LISPRO 100 UNIT/ML VIAL SC STA (15:41)
[2016-09-06] MEDS ORDERED: DEXTROSE 50% 50 ML SYRINGE IV PRN ×2 (16:00)
[2016-09-06] MEDS ORDERED: GLUCAGON 1 MG INJ IM PRN (16:00)
[2016-09-06] MEDS ORDERED: SOD CHLORIDE 0.9% 1,000 ML IV ONE (16:00)
[2016-09-06] MEDS ORDERED: GLUCOSE GEL 15 GRAM TUBE BUCCAL PRN (16:00)
[2016-09-06] MEDS ORDERED: GLUCOSE GEL 15 GRAM TUBE PO PRN ×2 (16:00)
[2016-09-06] MEDS ORDERED: ONDA4TAB14 PO (16:27)
[2016-09-06] MEDS ORDERED: HYDR-902 PO (16:27)
[2016-09-06] MEDS ORDERED: PANT40TA4 PO (16:27)
[2016-09-06 17:18] VITALS: BP 132/77; PULSE 89; RESP 18; TEMP 98.2
== END 2016-09-06 17:38 | disposition home or self-care (01) ==
LOC: E/R 13:30
DX: R10.84 Generalized abdominal pain (principal); R11.2 Nausea with vomiting, unspecified; E11.9 Type 2 diabetes mellitus without complications; I10 Essential (primary) hypertension; J45.909 Unspecified asthma, uncomplicated; Z79.4 Long term (current) use of insulin
CPT/HCPCS: 36415; 80053; 81003; 82962; 83690; 84703; 85025; 96374; 96375; 96376; J1170; J1200; J1815; J2405; J7030; Z7502

== ENCOUNTER 2017-02-24 21:43 | Emergency (ER) | payer OTHER ==
[~2017-02-24] VITALS: Ht 167.6 cm; Wt 92.7 kg
[~2017-02-24 21:43] MED LIST changes: +HYDR-902 PO; +ONDA4TAB14 PO; +PANT40TA4 PO
[2017-02-24 21:49] VITALS: Ht 167.6 cm; Wt 92.7 kg
[2017-02-25 00:04] VITALS: TEMP 98.5
--- NOTE | 2017-02-25 01:01 | ERD ---
ER Documentation Chief Complaint Chief Complaint chest pain HPI The patient is a 37-year-old female, presenting to the ER because of intermittent substernal chest discomfort that began about 10 PM last night. She has similar symptoms previously, denies chest pain with exertion/vomiting/ diaphoresis. She denies fever, chills, neck pain, complains of chronic abdominal pain, denied dysuria, diarrhea, constipation. She does not smoke nor drink Medical history: Diabetes mellitus, asthma, dyslipidemia, migraine, chronic abdominal pain Surgical history: , lap band ROS All systems reviewed and are negative except as per history of present illness. Medications Home Meds Active Scripts Albuterol Sulfate* (Proair HFA*) 8.5 Gm Hfa.aer.ad, 2 PUFF INH Q4, #1 INHALER Prov:MARI SPICER MD 02/25/17 Hydrocodone/Acetaminophen ([place] 10-325 Tablet) 1 Each Tablet, 1 TAB PO Q6H Y for PAIN, #7 TAB Prov:MARI SPICER MD 09/06/16 Ondansetron (Ondansetron Odt) 4 Mg Tab.rapdis, 4 MG PO Q6H Y for NAUSEA AND/OR VOMITING, #10 TAB Prov:MARI SPICER MD 09/06/16 Pantoprazole (Protonix) 40 Mg Tabec, 40 MG PO BID, #20 TAB Prov:MARI SPICER MD 09/06/16 Fish Oil* (Fish Oil*) 1,000 Mg Cap, 2000 MG PO BID, #120 CAP Prov:ALYSON FIELD MD 08/14/14 Reported Medications Insulin Glargine,Hum.rec.anlog (Ivis Peña) 300 Unit/1 Ml Insuln.pen, 75 UNIT SQ QHS 08/25/16 Insulin Lispro (Humalog Kwikpen) 200 Unit/1 Ml Insuln.pen, 0 SQ SLIDING SCALE Y for WITH MEALS, EA 08/25/16 Zolpidem Tartrate* (Ambien*) 10 Mg Tablet, 10 MG PO QHS Y for INSOMNIA, TAB 06/23/16 Atenolol* (Atenolol*) 50 Mg Tablet, 50 MG PO DAILY, #30 TAB 06/23/16 Fenofibrate Nanocrystallized* (Tricor*) 145 Mg Tablet, 145 MG PO DAILY, TAB 01/21/14 Allergies Allergies: Coded Allergies: Iodinated Contrast Media - Oral and (Verified Allergy, Mild, ITCHINESS, ) morphine (Verified Allergy, Unknown, BLISTERS, 09/06/16) PMhx/Soc History of Surgery: Yes (LAP BAND,) Anesthesia Reaction: No Hx Neurological Disorder: No Hx Respiratory Disorders: No Hx Cardiac Disorders: No Hx Psychiatric Problems: No Hx Alcohol Use: No (DENIES) Hx Substance Use: No Hx Tobacco Use: No (DENIES) Smoking Status: Never smoker Physical Exam Vitals Vital Signs Date Time Temp Pulse Resp B/P Pulse Ox O2 Delivery O2 Flow Rate FiO2 02/25/17 02:15 110 24 96 21 02/25/17 01:40 104 26 93 21 02/25/17 00:04 98.5 89 18 168/78 Room Air 02/24/17 21:49 96.7 120 20 144/80 97 Physical Exam Const: No acute distress. Head: Atraumatic. Eyes: Normal Conjunctiva. ENT: Normal External Ears, Nose and Mouth. Neck: Full range of motion. No meningismus. Resp: Bilateral expiratory wheezes Cardio: Regular rate and rhythm. Abd: Soft, non distended, normal bowel sounds, non tender. Skin: No petechiae or rashes. Back: No midline or flank tenderness. Ext: No cyanosis, or edema. Neur: Awake and alert. No focal deficit Psych: Normal Mood and Affect. Result Diagram: 02/25/178 02/25/17 0138 Results 24 hrs Laboratory Tests Test 02/25/17 01:38 White Blood Count 9.310^3/ul Red Blood Count 4.5610^6/ul Hemoglobin 16.4g/dl Hematocrit 38.3% Mean Corpuscular Volume 84.0fl Mean Corpuscular Hemoglobin 36.0pg Mean Corpuscular Hemoglobin Concent 42.8g/dl Red Cell Distribution Width 13.2% Platelet Count 83446^3/UL Mean Platelet Volume 9.8fl Neutrophils % 48.0% Lymphocytes % 40.5% Monocytes % 6.9% Eosinophils % 3.9% Basophils % 0.3% Nucleated Red Blood Cells % 0.0/100WBC Neutrophils # 4.510^3/ul Lymphocytes # 3.810^3/ul Monocytes # 0.610^3/ul Eosinophils # 0.410^3/ul Basophils # 0.010^3/ul Nucleated Red Blood Cells # 0.010^3/ul Sodium Level 137mmol/L Potassium Level 4.0mmol/L Chloride Level 105mmol/L Carbon Dioxide Level 17mmol/L Anion Gap 19 Blood Urea Nitrogen 20mg/dl Creatinine 0.68mg/dl Glucose Level 167mg/dl Calcium Level 8.6mg/dl Total Bilirubin 0.3mg/dl Direct Bilirubin 0.00mg/dl Indirect Bilirubin 0.3mg/dl Aspartate Amino Transf (AST/SGOT) 17IU/L Alanine Aminotransferase (ALT/SGPT) 30IU/L Alkaline Phosphatase 125IU/L Troponin I < 0.012ng/ml Total Protein 7.0g/dl Albumin 2.7g/dl Globulin 4.30g/dl Albumin/Globulin Ratio 0.62 Lipase 25U/L Current Medications Medications (Trade) Dose Ordered Sig/Bob Route PRN Reason Start Time Stop Time Status Last Admin Dose Admin Levalbuterol (Xopenex Neb) 1.25 mg ONCE ONCE HHN 02/25/17 01:30 02/25/17 01:31 DC 02/25/17 01:41 Ipratropium [place] (Atrovent 0.02% (Neb)) 0.5 mg ONCE ONCE HHN 02/25/17 01:30 02/25/17 01:31 DC 02/25/17 01:41 Levalbuterol (Xopenex Neb) 3.75 mg ONCE STAT INH 02/25/17 02:23 02/25/17 02:25 DC 02/25/17 02:15 Ipratropium [place] 1.5 mg 1.5 mg ONCE STAT INH 02/25/17 02:23 02/25/17 02:25 DC 02/25/17 02:15 Sodium Chloride (NS) 1,000 ml @ 1,000 mls/hr Q1H ONCE IV 02/25/17 04:00 02/25/17 04:59 Procedures/[place] [id number] Radiology Main Line: [phone] DIAGNOSTIC IMAGING REPORT Patient: SANDIP ARNOLD : 1980 Age: 37 Sex: F MR #: [id number] DOS: 02/25/17 0128 Ordering MD: MARI SPICER MD Location: E/R Room/Bed: PROCEDURE: Chest. CLINICAL INDICATION: Chest pain. TECHNIQUE: Single frontal view of the chest was obtained. COMPARISON: 08/25/2016. FINDINGS: The cardiac silhouette is within normal limits. The aortic arch is unremarkable. There is no focal consolidation, vascular congestion or pleural effusion. There is no pneumothorax. IMPRESSION: No evidence for active cardiopulmonary disease. .Dony Ambrocio MD, Date Time Electronically viewed and signed by .Dony Ambrocio MD, MD on 02/25/2017 02:14 .T/ CC: MARI SPICER MD EK hr Read by emergency physician Rate/Rhythm: Sinus tachycardia 118 beats/min QRS, ST, T-waves: No ST elevation, no T inversion, inf Q waves Impression: Abnormal EKG EK:48 hr Read by emergency physician Rate/Rhythm: Sinus tachycardia 117 beats/min QRS, ST, T-waves: No ST elevation, no T inversion, inf Q waves Impression: Abnormal EKG MEDICAL MAKING DECISION: The patient is a 37-year-old female, presenting with chest pain and acute asthma exacerbation. She was treated with liter normal saline, Xopenex 3.75 mg and Atrovent 1.5 mg nebulizer over one hour with good response. The differential diagnoses considered include but are not limited to acute coronary syndrome, acute myocardial infarction, pericarditis, pulmonary embolism , aortic dissection, pneumonia, pleural effusion, pneumothorax, GERD, chest wall pain. The second cardiac enzyme is negative, she will be able to be discharged The patient presents with chest pain and I considered pulmonary embolism, aortic dissection, pneumothorax among other diagnoses. Evaluation for acute coronary syndrome was performed. The HEART score (www.mdcalc.com) was utilized for risk stratification and found to be <= 3. Repeat EKG and troponin @ 3 hours were unchanged. Based on this evaluation the patients risk of major adverse cardiac events is <1%. Shared decision making occurred with patient and the decision has been made to discharge the patient for outpatient evaluation and functional study within 72 hours. Departure Diagnosis: Primary Impression: Chest pain Additional Impression: Asthma Condition: Good Comments She was discharged with albuterol and Qvar The patient's blood pressure was elevated (>120/80) but appears stable without evidence of hypertension emergency or urgency. The patient was counseled about the risks of hypertension and urged to pursue outpatient monitoring and therapy within a week with their primary care physician. I discussed the findings with the patient. I advised the patient to follow-up with the primary physician in about 1-2 days, sooner if needed and return if any concern. Disclaimer: Inadvertent spelling and grammatical errors are likely due to EHR/ dictation software use and do not reflect on the overall quality of patient care. Also, please note that the electronic time recorded on this note does not necessarily reflect the actual time of the patient encounter. MARI SPICER MD Feb 25, 2017 01:01
[2017-02-25] MEDS ORDERED: LEVALBUTEROL (NEB) 1.25 MG/0.5 ML AMP HHN ONE (01:30)
[2017-02-25] MEDS ORDERED: IPRATROPIUM (NEB) 0.5 MG/2.5 ML AMP HHN ONE (01:30)
--- NOTE | 2017-02-25 02:15 | RADRPT ---
PROCEDURE: Chest. CLINICAL INDICATION: Chest pain. TECHNIQUE: Single frontal view of the chest was obtained. COMPARISON: 08/25/2016. FINDINGS: The cardiac silhouette is within normal limits. The aortic arch is unremarkable. There is no focal consolidation, vascular congestion or pleural effusion. There is no pneumothorax. IMPRESSION: No evidence for active cardiopulmonary disease. .Dony Ambrocio MD, Date Time Electronically viewed and signed by .Dony Ambrocio MD, on 02/25/2017 02:14 .T/
[2017-02-25] MEDS ORDERED: LEVALBUTEROL (NEB) 1.25 MG/0.5 ML AMP INH STA (02:23)
[2017-02-25] MEDS ORDERED: IPRATROPIUM (NEB) 0.5 MG/2.5 ML AMP INH STA (02:23)
[2017-02-25 02:59] LABS: ALANINE AMINOTRANSFERASE 30 IU/L (13-69); ALBUMIN 2.7 g/dl (3.3-4.9); ALBUMIN/GLOBULIN RATIO 0.62; ALKALINE PHOSPHATASE 125 IU/L (42-121); ANION GAP 19 (8-16); ASPARTATE AMINO TRANSFERASE 17 IU/L (15-46); BILIRUBIN,INDIRECT 0.3 mg/dl (0-1.1); BILIRUBIN,TOTAL 0.3 mg/dl (0.2-1.3); BLOOD UREA NITROGEN 20 mg/dl (7-20); CALCIUM 8.6 mg/dl (8.4-10.2); CARBON DIOXIDE 17 mmol/L (21-31); CHLORIDE 105 mmol/L (97-110); CREATININE 0.68 mg/dl (0.44-1.00); GLUCOSE 167 mg/dl (70-220); SODIUM 137 mmol/L (135-144)
[2017-02-25 03:17] LABS: TROPONIN-I < 0.012 ng/ml (0.00-0.12)
[2017-02-25 03:27] LABS: BASOPHILS % 0.3 % (0.0-2.0); EOSINOPHILS # 0.4 10^3/ul (0.0-0.5); EOSINOPHILS % 3.9 % (0.0-7.0); HEMATOCRIT 38.3 % (37.0-47.0); HEMOGLOBIN 16.4 g/dl (12.0-16.0); LYMPHOCYTES # 3.8 10^3/ul (0.8-2.9); LYMPHOCYTES % 40.5 % (15.0-51.0); MEAN PLATELET VOLUME 9.8 fl (7.4-10.4); MONOCYTE # 0.6 10^3/ul (0.3-0.9); MONOCYTES % 6.9 % (0.0-11.0); NEUTROPHIL # 4.5 10^3/ul (1.6-7.5); PLATELET COUNT 355 10^3/UL (140-415); RED BLOOD COUNT 4.56 10^6/ul (4.20-5.40); RED CELL DISTRIBUTION WIDTH 13.2 % (11.5-14.5); WHITE BLOOD COUNT 9.3 10^3/ul (4.8-10.8)
[2017-02-25 03:50] LABS: MEAN CORPUSCULAR HGB CONC 42.8 g/dl (32.0-37.0); POSITIVE DIFF @See below
[2017-02-25] MEDS ORDERED: ALBU8.5H3 INH (03:58)
[2017-02-25] MEDS ORDERED: SOD CHLORIDE 0.9% 1,000 ML IV ONE (04:00)
[2017-02-25] MEDS ORDERED: KETOROLAC 30 MG INJ IV STA (05:33)
[2017-02-25 06:16] VITALS: BP 136/74; PULSE 105; RESP 18
== END 2017-02-25 06:48 | disposition home or self-care (01) ==
LOC: E/R 21:43
DX: R07.2 Precordial pain (principal); J45.909 Unspecified asthma, uncomplicated; E11.9 Type 2 diabetes mellitus without complications; R05 Cough; Z79.4 Long term (current) use of insulin
CPT/HCPCS: 36415; 71010; 80053; 83690; 84484; 85025; 94644; 94664; 96374; J1885; J7030; Z7502; Z7610; 93005

== ENCOUNTER 2017-04-06 04:26 | Emergency (ER) | END 2017-04-06 07:43 | disposition home or self-care (01) ==

== ENCOUNTER 2017-04-26 20:22 | Observation (INO) | END 2017-04-28 22:30 | disposition home or self-care (01) ==

== ENCOUNTER 2017-05-09 05:24 | Inpatient (IN) | END 2017-05-10 12:02 | disposition home or self-care (01) | DRG 862 ==

== ENCOUNTER 2018-05-03 02:46 | Emergency (ER) | payer OTHER ==
[~2018-05-03] VITALS: Wt 95.8 kg
[~2018-05-03 02:46] MED LIST changes: +ALBU8.5H8 INH; +ATEN-51 PO; -ATEN50TA PO; -HYDR-902 PO; +INSU100I12 SQ; -INSU200I SQ; -OMEG-135 PO; -ONDA4TAB14 PO; +PANT40TA3 PO; -PANT40TA4 PO; -ZOLP10TA PO
--- NOTE | 2018-05-03 03:25 | ERD ---
ER Documentation Chief Complaint Chief Complaint vomiting, diarrhea x's 1 day HPI This is a 38-year-old female who presents to emerge department with complaints of right upper abdominal pain that started today. Also complains of diarrhea will day. LMP: Last week. A0. Surgical history: . Denies headache, dizziness, blurry vision, changes in vision, neck pain, neck stiffness, throat pain, difficulty swallowing, difficulty breathing lying flat, loss of bowel bladder control, urinary symptoms, or possibility of being , vaginal bleeding, vaginal discharge, trauma, injury, falls, recent surgery in the last 3 weeks, recent travel, recent long travel, leg pain, difficulty walking, numbness or tingling sensation, recent exposure to any illness, recent antibiotic use in the last 3 months, fever, chills. ROS All systems reviewed and are negative except as per history of present illness. Medications Home Meds Active Scripts Doxycycline Hyclate* (Doxycycline Hyclate*) 100 Mg Tablet.dr, 100 MG PO BID for 10 Days, TAB Prov:FREDO ERICKSON PA-C 05/03/18 Naproxen* (Naprosyn*) 500 Mg Tablet, 500 MG PO BID PRN for PAIN AND/OR INFLAMMATION, #30 TAB Prov:ADRI RAO 05/03/18 Metoclopramide* (Reglan*) 10 Mg Tablet, 10 MG PO Q6 PRN for NAUSEA AND/OR VOMITING, #20 TAB Prov:ADRI RAO F 05/03/18 Reported Medications Fenofibrate Nanocrystallized* (Tricor*) 145 Mg Tablet, 145 MG PO DAILY, TAB 05/09/17 Albuterol Sulfate* (Proair HFA*) 8.5 Gm Hfa.aer.ad, 2 PUFF INH Q4, #1 INHALER 05/09/17 Insulin Lispro (Humalog Kwikpen U-100) 100 Unit/1 Ml Insuln.pen, 0 SQ, EA INJECT 60u plus sliding Scale 05/09/17 Insulin Glargine,Hum.rec.anlog (Ivis [place]) 300 Unit/1 Ml Insuln.pen, 80 UNIT SQ QHS, EA 04/26/17 Insulin Lispro (Humalog Kwikpen U-100) 100 Unit/1 Ml Insuln.pen, 0 SQ AC MEALS, EA 04/26/17 Pantoprazole* (Protonix*) 40 Mg Tablet.dr, 40 MG PO DAILY, TAB 04/26/17 Atenolol* (Atenolol*) 25 Mg Tablet, 50 MG PO DAILY PRN for ELEVATED BLOOD PRESSURE, #30 TAB 04/26/17 Allergies Allergies: Coded Allergies: morphine (Verified Allergy, Unknown, TAKE WITH BENADRYL, 04/26/17) PMhx/Soc History of Surgery: Yes (Right arm, lap band, c section X1) Anesthesia Reaction: No Hx Neurological Disorder: No Hx Respiratory Disorders: No Hx Cardiac Disorders: No Hx Psychiatric Problems: No Hx Miscellaneous Medical Probl: Yes (DM,pancreatitis) Hx Alcohol Use: No Hx Substance Use: No Hx Tobacco Use: No Physical Exam Vitals Physical Exam Const: No acute distress Head: Atraumatic Eyes: Normal Conjunctiva ENT: Normal External Ears, Nose and Mouth. Neck: Full range of motion. No meningismus. Resp: Clear to auscultation bilaterally Cardio: Regular rate and rhythm, no murmurs Abd: Soft, non tender, non distended. Normal bowel sounds Skin: No petechiae or rashes Back: No midline or flank tenderness Ext: No cyanosis, or edema Neur: Awake and alert Psych: Normal Mood and Affect Results 24 hrs Laboratory Tests Test 05/03/18 04:01 05/03/18 04:12 White Blood Count 8.8 10^3/ul Red Blood Count 4.44 10^6/ul Hemoglobin 13.2 g/dl Hematocrit 37.8 % Mean Corpuscular Volume 85.1 fl Mean Corpuscular Hemoglobin 29.7 pg Mean Corpuscular Hemoglobin Concent 34.9 g/dl Red Cell Distribution Width 13.1 % Platelet Count 200 10^3/UL Mean Platelet Volume 9.7 fl Immature Granulocytes % 1.200 % Neutrophils % 49.2 % Lymphocytes % 41.9 % Monocytes % 4.2 % Eosinophils % 3.2 % Basophils % 0.3 % Nucleated Red Blood Cells % 0.0 /100WBC Immature Granulocytes # 0.110 10^3/ul Neutrophils # 4.4 10^3/ul Lymphocytes # 3.7 10^3/ul Monocytes # 0.4 10^3/ul Eosinophils # 0.3 10^3/ul Basophils # 0.0 10^3/ul Nucleated Red Blood Cells # 0.0 10^3/ul Prothrombin Time 11.4 Sec Prothrombin Time Ratio 0.9 INR International Normalized Ratio 0.82 Activated Partial Thromboplast Time 24.5 Sec Urine Color STRAW Urine Clarity CLEAR Urine pH 6.0 Urine Specific [place] 1.017 Urine Ketones NEGATIVE mg/dL Urine Nitrite NEGATIVE mg/dL Urine Bilirubin NEGATIVE mg/dL Urine Urobilinogen NEGATIVE mg/dL Urine Leukocyte Esterase NEGATIVE [place]/ul Urine Microscopic RBC 0 /HPF Urine Microscopic WBC 0 /HPF Urine Hemoglobin NEGATIVE mg/dL Urine Glucose 3+ mg/dL Urine Total Protein 2+ mg/dl Sodium Level 137 mmol/L Potassium Level 4.2 mmol/L Chloride Level 103 mmol/L Carbon Dioxide Level 23 mmol/L Anion Gap 11 Blood Urea Nitrogen 24 mg/dl Creatinine 0.52 mg/dl Est Glomerular Filtrat Rate mL/min > 60 mL/min Glucose Level 272 mg/dl Calcium Level 8.9 mg/dl Total Bilirubin 0.2 mg/dl Direct Bilirubin 0.00 mg/dl Indirect Bilirubin 0.2 mg/dl Aspartate Amino Transf (AST/SGOT) 29 IU/L Alanine Aminotransferase (ALT/SGPT) 38 IU/L Alkaline Phosphatase 119 IU/L Troponin I < 0.012 ng/ml Total Protein 6.3 g/dl Albumin 3.5 g/dl Globulin 2.80 g/dl Albumin/Globulin Ratio 1.25 Amylase Level 71 U/L Lipase 97 U/L POC Beta HCG, Qualitative NEGATIVE Current Medications Medications Dose Sig/Bob Start Time Status Last (Trade) Ordered Route PRN Stop Time Admin Dose Reason Admin Ondansetron 4 mg ONCE STAT 05/03/18 DC 05/03/18 HCl (Zofran IV 03:38 05:01 Inj) 05/03/18 03:41 Sodium 1,000 ml @ Q1H ONCE 05/03/18 DC 05/03/18 Chloride 1,000 mls/hr IV 04:00 05:00 05/03/18 04:59 1 mg ONCE STAT 05/03/18 DC 05/03/18 Hydromorphone IV 03:38 05:01 HCl 05/03/18 03:41 (Dilaudid) 25 mg ONCE ONCE 05/03/18 DC 05/03/18 Diphenhydrami IV 05:00 05:01 ne HCl 05/03/18 05:01 (Benadryl) 1 mg ONCE STAT 05/03/18 DC 05/03/18 Hydromorphone IV 06:37 06:41 HCl 05/03/18 06:38 (Dilaudid) 25 mg ONCE ONCE 05/03/18 DC 05/03/18 Diphenhydrami IV 07:00 06:42 ne HCl 05/03/18 07:01 (Benadryl) Ketorolac 30 mg ONCE STAT 05/03/18 DC 05/03/18 Tromethamine IV 08:39 09:01 (Toradol) 05/03/18 08:40 IV Flush 10 ml STK-MED 05/03/18 DC 05/03/18 (NS 10 ml) ONCE .ROUTE 08:40 08:48 05/03/18 08:41 Sodium 100 ml @ ud STK-MED 05/03/18 DC 05/03/18 Chloride ONCE .ROUTE 08:40 08:48 05/03/18 08:41 Iohexol 100 ml @ ud STK-MED 05/03/18 DC 05/03/18 ONCE .ROUTE 08:40 08:48 05/03/18 08:41 Procedures/MDM Diagnostic tests: POC urine : Negative. Influenza a and B: Negative for influenza A. Negative for influenza B. Urinalysis: Reviewed. Blood works: Reviewed. CT of the abdomen and pelvis:1. Small to moderate hiatal hernia. Stomach otherwise unremarkable. 2. No diverticulitis or appendicitis. 3. Hepatomegaly with hepatic fatty infiltration. Previous CT scan of the abdomen and pelvis demonstrate hypodense mass involving the posterior segment right lobe of the liver not demonstrated on the current study. 4. Previous cyst adjacent to pancreatic body no longer seen consistent with resolved pseudocyst. 5. No evidence of calcified urinary calculi obstructive uropathy. No change small superior right renal angiomyolipoma. 6. Interval development 3 cm left adnexal cyst likely a left ovarian / para ovarian cyst. Follow-up pelvic ultrasound is recommended. Chest x-ray: 1. Mild bilateral perihilar interstitial edema or infiltrates. 2. Low lung volume chest. Chest and Thorax CTA: 1. No evidence of pulmonary embolism. 2. No mass, lymphadenopathy, or acute infiltrate. 3. Moderate hiatal hernia. 4. Hepatosplenomegaly and hepatic steatosis. Treatment: Saline lock. Normal saline IV bolus. Dilaudid IV. Benadryl IV. Zofran IV. Re-evaluation: Minimal pain. Differential diagnosis This case was discussed with my supervising physician, Dr. Glendy Mc who recommends ultrasound of the pelvis then discharge if negative for torsion. Final diagnosis: Abdominal pain. Prescription: Abdominal pain. Follow-up with PCP in the next 24-48 hours. Come back here in the emergency department for any new symptoms or any worsening symptoms. All questions and concerns were answered. Patient and family members verbalized understanding and agreed with plan of care. Hemodynamically stable on discharge. Departure Diagnosis: Primary Impression: Abdominal pain Condition: Stable Additional Instructions: Follow-up with PCP in the next 24-48 hours. Come back here in the emergency department for any new symptoms or any worsening symptoms. ADRI RAO May 03, 2018 03:24
[2018-05-03] MEDS ORDERED: ONDANSETRON 4 MG INJ IV STA (03:38)
[2018-05-03] MEDS ORDERED: HYDROmorphONE 2 MG/ML SYG IV STA ×2 (03:38→06:37)
[2018-05-03] MEDS ORDERED: SOD CHLORIDE 0.9% 1,000 ML IV ONE (04:00)
[2018-05-03] MEDS ORDERED: DIPHENHYDRAMINE 50 MG INJ IV ONE ×2 (05:00→07:00)
[2018-05-03] MEDS ORDERED: METO10TA92 PO (06:41)
[2018-05-03] MEDS ORDERED: CEPH-443 PO (06:43)
[2018-05-03] MEDS ORDERED: NAPR-985 PO (06:44)
[2018-05-03] MEDS ORDERED: KETOROLAC 30 MG INJ IV STA (08:39)
[2018-05-03] MEDS ORDERED: SOD CHLORIDE 0.9% 100 ML ONE (08:40)
[2018-05-03] MEDS ORDERED: IOHEXOL 100 ML ONE (08:40)
[2018-05-03] MEDS ORDERED: DOXY100T20 PO (09:06)
[2018-05-03 09:40] VITALS: BP 142/87; PULSE 118; RESP 17
== END 2018-05-03 09:42 | disposition home or self-care (01) ==
LOC: FTE 02:46
DX: R10.9 Unspecified abdominal pain (principal); E11.9 Type 2 diabetes mellitus without complications; Z79.4 Long term (current) use of insulin
CPT/HCPCS: 71046; 71275; 74176; 76856; 80053; 81001; 81025; 82150; 83690; 84484; 85025; 85610; 85730; 87400; 93005; 96361; 96374; 96375; 96376; J1170; J1200; J1885; J2405; J7030; Q9967; Z7502; Z7610

== ENCOUNTER 2018-08-14 04:53 | Inpatient (IN) | payer OTHER ==
[2018-08-14] VITALS (14 sets, daily range): BP systolic 88–156; BP diastolic 60–88; PULSE 81–89; RESP 15–24; Ht 162.6 cm; Wt 86.0 kg
[~2018-08-14] VITALS: Ht 162.6 cm; Wt 86.0 kg
[~2018-08-14 04:53] MED LIST changes: +DOXY100T20 PO; +METO10TA92 PO; +NAPR-985 PO
[2018-08-14] MEDS ORDERED: ONDANSETRON 4 MG INJ IV STA ×2 (05:23→07:15)
[2018-08-14] MEDS ORDERED: HYDROmorphONE 1 MG/ML SYG IV STA (05:23)
[2018-08-14] MEDS ORDERED: SOD CHLORIDE 0.9% 860 ML IV ONE (05:30)
[2018-08-14] MEDS ORDERED: NS + KCL 40 MEQ 1,000 ML IV SCH (06:01)
[2018-08-14] MEDS ORDERED: DEXTROSE 10%/0.45% NACL 1,000 ML IV SCH (06:01)
[2018-08-14] MEDS ORDERED: SOD CHLORIDE 0.9% 1,000 ML IV SCH (06:01)
[2018-08-14] MEDS ORDERED: D10/0.45% NACL + KCL 40 MEQ 1,000 ML IV SCH (06:01)
[2018-08-14] MEDS ORDERED: LACTATED RINGER'S 860 ML IV ONE (06:30)
[2018-08-14] MEDS ORDERED: DEXTROSE 50% 50 ML SYRINGE IV PRN ×4 (06:30→20:00)
[2018-08-14] MEDS ORDERED: LIDOCAINE 1% (MDV) 20 ML INJ ONE (06:43)
[2018-08-14] MEDS ORDERED: LIDOCAINE 1% (MPF) 30 ML INJ INJ PRN (07:00)
[2018-08-14] MEDS ORDERED: HYDROmorphONE 2 MG/ML SYG IV STA (07:15)
[2018-08-14] MEDS ORDERED: PANTOPRAZOLE 40 MG INJ IV SCH (07:30)
[2018-08-14] MEDS ORDERED: HYDROmorphONE 0.5 MG/0.5 ML SYG IV PRN (07:30)
[2018-08-14] MEDS ORDERED: ACETAMINOPHEN 650MG/20.3ML CUP PO PRN (07:30)
[2018-08-14] MEDS ORDERED: NA BICARBONATE 8.4% 50 ML SYG IV ONE (07:30)
--- NOTE | 2018-08-14 07:41 | ERD ---
ER Documentation Chief Complaint Chief Complaint states high blood sugar c/o dizziness HPI Patient is a 38-year-old female with diabetes and DKA who presents with shortness of breath. She says "my chest is burning". She said the symptoms started 2 days ago. She says that she has been checking her sugars every morning and they are "not high". She is taking her insulin she reports as directed. She has no fevers. Upon review of old medical record the patient has multiple visits to the ER with DKA. ROS All systems reviewed and are negative except as per history of present illness. Medications Home Meds Active Scripts Doxycycline Hyclate* (Doxycycline Hyclate*) 100 Mg Tablet., 100 MG PO BID for 10 Days, TAB Prov:FREDO ERICKSON PA-C 05/03/18 Naproxen* (Naprosyn*) 500 Mg Tablet, 500 MG PO BID PRN for PAIN AND/OR INFLAMMATION, #30 TAB Prov:ADRI RAO 05/03/18 Metoclopramide* (Reglan*) 10 Mg Tablet, 10 MG PO Q6 PRN for NAUSEA AND/OR VOMITING, #20 TAB Prov:ADRI RAO F 05/03/18 Reported Medications Fenofibrate Nanocrystallized* (Tricor*) 145 Mg Tablet, 145 MG PO DAILY, TAB 05/09/17 Albuterol Sulfate* (Proair HFA*) 8.5 Gm Hfa.aer.ad, 2 PUFF INH Q4, #1 INHALER 05/09/17 Insulin Lispro (Humalog Kwikpen U-100) 100 Unit/1 Ml Insuln.pen, 0 SQ, EA INJECT 60u plus sliding Scale 05/09/17 Insulin Glargine,Hum.rec.anlog (Touportia Solostar) 300 Unit/1 Ml Insuln.pen, 80 UNIT SQ QHS, EA 04/26/17 Insulin Lispro (Humalog Kwikpen U-100) 100 Unit/1 Ml Insuln.pen, 0 SQ AC MEALS, EA 04/26/17 Pantoprazole* (Protonix*) 40 Mg Tablet.dr, 40 MG PO DAILY, TAB 04/26/17 Atenolol* (Atenolol*) 25 Mg Tablet, 50 MG PO DAILY PRN for ELEVATED BLOOD PRESSURE, #30 TAB 04/26/17 Allergies Allergies: Coded Allergies: morphine (Verified Allergy, Unknown, TAKE WITH BENADRYL, 04/26/17) PMhx/Soc History of Surgery: Yes (Right arm, lap band, c section X1) Anesthesia Reaction: No Hx Neurological Disorder: No Hx Respiratory Disorders: Yes (ASTHMA) Hx Cardiac Disorders: Yes (HLD) Hx Psychiatric Problems: No Hx Miscellaneous Medical Probl: Yes (DM,pancreatitis) Hx Alcohol Use: No Hx Substance Use: No Hx Tobacco Use: No Smoking Status: Never smoker FmHx Family History: diabetes Physical Exam Vitals Vital Signs Date Temp Pulse Resp B/P (MAP) Pulse Ox O2 O2 Flow FiO2 Time Delivery Rate 08/14/18 98.3 99 26 148/84 100 Nasal 3.0 06:30 (105) Cannula 08/14/18 99 24 130/77 99 Nasal 3.0 05:51 (94) Cannula 08/14/18 97.2 117 30 139/70 99 04:58 (93) Physical Exam Const: Moderate distress Head: Atraumatic Eyes: Normal Conjunctiva ENT: Normal External Ears, Nose and Mouth. Neck: Full range of motion. No meningismus. Resp: Kussmaul respirations Cardio: Regular rate and rhythm, no murmurs Abd: Soft, non tender, non distended. Normal bowel sounds Skin: No petechiae or rashes Back: No midline or flank tenderness Ext: No cyanosis, or edema Neur: Awake and alert Psych: Normal Mood and Affect Result Diagram: 08/14/18 0518 08/14/18 0518 Results 24 hrs Laboratory Tests Test 08/14/18 04:57 08/14/18 05:02 08/14/18 05:11 08/14/18 05:18 Bedside Glucose 567 mg/dL Blood Gas Blood venous Specimen Source Arterial Blood 08/14/2018 6:00: Date Drawn 28 AM Arterial Blood VENOUS LINE Gas Puncture Site Yobani Test N/A Venous Blood pH 7.152 Venous Blood 19.1 mmHG pCO2 (Temp Corrected ) Venous Blood 33.1 mmHG pO2 (Temp Corrected ) Venous Blood 6.5 mmol/L HCO3 Venous Blood 58.3 mmHG Oxygen Saturation Venous Blood -20.3 mmol/L Base Excess Venous Blood 13.4 g/dl Total Hemoglobin Venous Blood 58.1 % Oxyhemoglobin Venous Blood 0.1 % Methemoglobin Carboxyhemoglob 0.3 % in Blood Gas 37.0 C Temperature Blood Gas 30 Actual Respiration Rat e Blood Gas NASAL CANNULA Modality FiO2 30.0 % Blood Gas WESTON Gregg MD Critical Value Read Back Blood Gas KB Notified Whom Blood Gas 08/14/2018 6:07: Notified Time 35 AM Urine Color COLORLESS Urine Clarity CLEAR Urine pH 6.0 Urine Specific 1.017 [place] Urine Ketones 2+ mg/dL Urine Nitrite NEGATIVE mg/dL Urine Bilirubin NEGATIVE mg/dL Urine NEGATIVE mg/dL Urobilinogen Urine Leukocyte NEGATIVE Tonia/ul Esterase Urine 1 /HPF Microscopic RBC Urine 1 /HPF Microscopic WBC Urine 1+ mg/dL Hemoglobin Urine Glucose 3+ mg/dL Urine Total 1+ mg/dl Protein White Blood 16.4 10^3/ul Count Red Blood Count 4.96 10^6/ul Hemoglobin 15.7 g/dl Hematocrit 43.8 % Mean 88.3 fl Corpuscular Volume Mean 31.7 pg Corpuscular Hemoglobin Mean 35.8 g/dl Corpuscular Hemoglobin Conc ent Red Cell 13.6 % Distribution Width Platelet Count 403 10^3/UL Mean Platelet 9.2 fl Volume Immature 1.000 % Granulocytes % Neutrophils % 68.1 % Lymphocytes % 26.3 % Monocytes % 4.2 % Eosinophils % 0.2 % Basophils % 0.2 % Nucleated Red 0.0 /100WBC Blood Cells % Immature 0.160 10^3/ul Granulocytes # Neutrophils # 11.1 10^3/ul Lymphocytes # 4.3 10^3/ul Monocytes # 0.7 10^3/ul Eosinophils # 0.0 10^3/ul Basophils # 0.0 10^3/ul Nucleated Red 0.0 10^3/ul Blood Cells # Sodium Level 133 mmol/L Potassium Level 4.4 mmol/L Chloride Level 100 mmol/L Carbon Dioxide < 5 mmol/L Level Anion Gap 28 Blood Urea 24 mg/dl Nitrogen Creatinine 1.10 mg/dl Est Glomerular 56 mL/min Filtrat Rate mL/min Glucose Level 624 mg/dl Calcium Level 8.2 mg/dl Phosphorus 6.8 mg/dl Level Magnesium Level 1.9 mg/dl Total Bilirubin 0.4 mg/dl Direct 0.00 mg/dl Bilirubin Indirect 0.4 mg/dl Bilirubin Aspartate Amino 22 IU/L Transf (AST/SGO T) Alanine 25 IU/L Aminotransferas e (ALT/SGPT) Alkaline 159 IU/L Phosphatase Total Protein 7.5 g/dl Albumin 3.3 g/dl Globulin 4.20 g/dl Albumin/Globuli 0.78 n Ratio POC Beta HCG, NEGATIVE Qualitative Test 08/14/18 05:20 08/14/18 06:31 Bedside Glucose 554 mg/dL 539 mg/dL Current Medications Medications Dose Sig/Bob Start Time Status Last (Trade) Ordered Route PRN Stop Time Admin Dose Reason Admin Sodium 860 ml @ ONCE ONCE 08/14/18 DC 08/14/18 Chloride 860 mls/hr IV 05:30 05:25 08/14/18 06:29 1 mg ONCE STAT 08/14/18 DC 08/14/18 Hydromorphone IV 05:23 05:31 HCl 08/14/18 05:24 (Dilaudid) Ondansetron 4 mg ONCE STAT 08/14/18 DC 08/14/18 HCl (Zofran IV 05:23 05:31 Inj) 08/14/18 05:24 Potassium 1,000 ml @ Q0M IV 08/14/18 Chloride/Sodi 0 mls/hr 06:01 um Chloride Potassium 1,000 ml @ Q0M IV 08/14/18 Chloride/Dext 0 mls/hr 06:01 xiao/ Sod Cl Potassium 1,000 ml @ Q0M IV 08/14/18 Chloride/Sodi 0 mls/hr 06:01 um Chloride Potassium 1,000 ml @ Q0M IV 08/14/18 Chloride/Dext 0 mls/hr 06:01 xiao/ Sod Cl Sodium 1,000 ml @ Q0M IV 08/14/18 Chloride 0 mls/hr 06:01 1,000 ml @ Q0M IV 08/14/18 Dextrose/Sodi 0 mls/hr 06:01 um Chloride Insulin 101 ml @ ER DKA 08/14/18 Human 8.69 mls/hr PROTOCOL IV 06:30 Regular 100 unit/ Sodium Chloride Lactated 860 ml @ ONCE ONCE 08/14/18 DC 08/14/18 Ringer's 860 mls/hr IV 06:30 06:11 08/14/18 07:29 HYPOGLYCEM 08/14/18 Miscellaneous HYPOGLYCEMIA PROTOCOL PRN 06:30 TREATMENT XX Information .HYPOGLYCEMIA (* PROTOCOL Miscellaneous Pharmacy Order) Dextrose 50 ml Q15M PRN 08/14/18 (D50w IV 06:30 Syringe) .DECREASED GLUCOSE Dextrose 25 ml Q15M PRN 08/14/18 (D50w IV 06:30 Syringe) .DECREASED GLUCOSE Lidocaine 20 ml STK-MED 08/14/18 DC (Xylocaine ONCE .ROUTE 06:43 1% (Mdv) 20 08/14/18 06:44 ml) Lidocaine 30 ml ONCE PRN 08/14/18 (Xylocaine INJ iv 07:00 1% (Mpf)) insertion 1 mg ONCE STAT 08/14/18 DC 08/14/18 Hydromorphone IV 07:15 07:16 HCl 08/14/18 07:16 (Dilaudid) Ondansetron 4 mg ONCE STAT 08/14/18 DC 08/14/18 HCl (Zofran IV 07:15 07:16 Inj) 08/14/18 07:16 Sodium 50 ml ONCE ONCE 08/14/18 DC Bicarbonate IV 07:30 (Na Bicarb 08/14/18 07:31 8.4% Syg) Ondansetron 4 mg Q6H PRN 08/14/18 HCl (Zofran IV NAUSEA 07:30 Inj) AND/OR VOMITING 650 mg Q6H PRN 08/14/18 Acetaminophen PO PAIN 07:30 (Tylenol LEVEL 1-3 OR Liquid) FEVER 0.5 mg Q4H PRN 08/14/18 Hydromorphone IV PAIN 07:30 HCl LEVEL 7-10 (Dilaudid) 40 mg BID IV 08/14/18 UNV Pantoprazole 07:30 (Protonix Iv) Procedures/[facility] Patient is a 38-year-old female presents with shortness of breath. She was found to have acute diabetic ketoacidosis with a bicarb of less than 5 and an anion gap of 24. The patient was started on the DKA protocol and given normal saline fluid resuscitation as well as an insulin drip. The patient will be admitted to the care of Dr. Braxton from the panel team to the intensive care unit. She was given Dilaudid and Zofran for symptom medic relief. I believe her symptoms are related to the DKA and they should improve with treatment of the DKA. I doubt acute coronary syndrome, pneumonia, pneumothorax, pulmonary embolism, or aortic dissection. Critical Care: Time: 35 minutes excluding all billable procedures. Treatments/Evaluations: Close monitoring and treatment of unstable vital signs, cardiorespiratory, and neurologic status, while maintaining tight balance of fluid, respiratory, and cardiac interventions. Departure Diagnosis: Primary Impression: DKA (diabetic ketoacidosis) Diabetes mellitus type: type 1 Diabetes mellitus complication detail: without coma Qualified Codes: E10.10 - Type 1 diabetes mellitus with ketoacidosis without coma Condition: Critical AMA ONTIVEROS MD August 14, 2018 07:41
[2018-08-14] MEDS: INSULIN REGULAR, HUMAN 100 UNIT in SOD CHLORIDE 0.9% 100 ML IV SCH ×4 (07:51→19:00)
[2018-08-14] MEDS: NS + KCL 30 MEQ 1,000 ML IV SCH ×3 (07:53→20:09)
[2018-08-14] MEDS: PANTOPRAZOLE 40 MG INJ IV SCH ×2 (07:57→18:53)
--- NOTE | 2018-08-14 08:43 | HP ---
Date/Time of Note Date/Time of Note DATE: 08/14/18 TIME: 08:32 Assessment/Plan VTE Prophylaxis SCD applied (from Nsg): Yes Pharmacological prophylaxis: NA/contraindicated Pharm contraindication: low risk/ambulating Lines/Catheters IV Catheter Type (from Nrsg): Mid Line Assessment/Plan Hospital Course This is a 38-year-old female being admitted to the ICU floor for: #1 diabetic ketoacidosis: Etiology unknown. Patient presented with blood sugars in the 600s. Though she reports compliance I am unsure of this. Will check hemoglobin A1c. Initiate DKA protocol, insulin drip. Serial CBC BMP ABGs. Will consult endocrinology . #2 black emesis: We will check a CT scan of the abdomen pelvis without contrast. Hemoglobin appears stable. Protonix 40 mg IV twice daily. will consult GI . #3 severe metabolic acidosis: Secondary to DKA. pH is 7.1. She did receive a dose of bicarb. Serial BMPs. Will treat for DKA and this likely should resolve. We will also check a lipase level, ethanol level, urine drug screen #4 suspect noncompliant diabetes mellitus: Patient reports a history of type II developing type I. She is only currently on Toujeo. Will check hemoglobin A1c. Will consult endocrinology. Will need to optimize patient's medication regimen. We will also need to encourage compliance. Diabetic education. #5 obesity: We will check hemoglobin A 1C, lipid panel, TSH #6 asthma: Stable, PRN inhaler if indicated #7 DVT GI prophylaxis: SCDs, Protonix IV Further treatment strategy will be implemented as per the clinical course Greater than 45 minutes critical care time was spent on the care management patient. Result Diagram: 08/14/18 0508/14/18 0518 Results 24hrs Laboratory Tests Test 08/14/18 04:57 08/14/18 05:02 08/14/18 05:11 08/14/18 05:18 Bedside Glucose 567 *H Blood Gas Blood venous Specimen Source Arterial Blood 08/14/2018 6:00:2 Date Drawn 8 AM Arterial Blood VENOUS LINE Gas Puncture Site Yobani Test N/A Venous Blood pH 7.152 *L Venous Blood pCO2 19.1 L (Temp Corrected) Venous Blood pO2 33.1 H (Temp Corrected) Venous Blood HCO3 6.5 L Venous Blood 58.3 Oxygen Saturation Venous Blood Base -20.3 L Excess Venous Blood 13.4 Total Hemoglobin Venous Blood 58.1 Oxyhemoglobin Venous Blood 0.1 Methemoglobin Carboxyhemoglobin 0.3 Blood Gas 37.0 Temperature Blood Gas Actual 30 Respiration Rate Blood Gas NASAL CANNULA Modality FiO2 30.0 Blood Gas OSTICK B Critical Value Read Back Blood Gas KB Notified Whom Blood Gas 08/14/2018 6:07:3 Notified Time 5 AM Urine Color COLORLESS Urine Clarity CLEAR Urine pH 6.0 Urine Specific 1.017 [place] Urine Ketones 2+ H Urine Nitrite NEGATIVE Urine Bilirubin NEGATIVE Urine NEGATIVE Urobilinogen Urine Leukocyte NEGATIVE Esterase Urine Microscopic 1 RBC Urine Microscopic 1 WBC Urine Hemoglobin 1+ H Urine Glucose 3+ H Urine Total 1+ H Protein White Blood Count 16.4 #H Red Blood Count 4.96 Hemoglobin 15.7 Hematocrit 43.8 Mean Corpuscular 88.3 Volume Mean Corpuscular 31.7 Hemoglobin Mean Corpuscular 35.8 Hemoglobin Concen t Red Cell 13.6 Distribution Width Platelet Count 403 # Mean Platelet 9.2 Volume Immature 1.000 H Granulocytes % Neutrophils % 68.1 Lymphocytes % 26.3 Monocytes % 4.2 Eosinophils % 0.2 Basophils % 0.2 Nucleated Red 0.0 Blood Cells % Immature 0.160 H Granulocytes # Neutrophils # 11.1 H Lymphocytes # 4.3 H Monocytes # 0.7 Eosinophils # 0.0 Basophils # 0.0 Nucleated Red 0.0 Blood Cells # Sodium Level 133 L Potassium Level 4.4 Chloride Level 100 Carbon Dioxide < 5 *L Level Anion Gap 28 H Blood Urea 24 H Nitrogen Creatinine 1.10 H Est Glomerular 56 L Filtrat Rate mL/min Glucose Level 624 *H Hemoglobin A1c 13.0 H Calcium Level 8.2 L Phosphorus Level 6.8 H Magnesium Level 1.9 Total Bilirubin 0.4 Direct Bilirubin 0.00 Indirect 0.4 Bilirubin Aspartate Amino 22 Transf (AST/SGOT) Alanine 25 Aminotransferase (ALT/SGPT) Alkaline 159 H Phosphatase Total Protein 7.5 Albumin 3.3 Globulin 4.20 H Albumin/Globulin 0.78 Ratio POC Beta HCG, NEGATIVE Qualitative Test 08/14/18 05:20 08/14/18 06:31 08/14/18 07:50 Bedside Glucose 554 *H 539 *H 577 *H HPI/ROS Admit Date/Time Admit Date/Time Hx of Present Illness Chief complaint: Nausea vomiting x2 days This is a 38-year-old female past medical history of type 1 diabetes and DKA, pericarditis, asthma who presents with shortness of breath. She says "my chest is burning". She said the symptoms started 2 days ago. She says that she has been checking her sugars every morning and they are "not high". She is taking her insulin she reports as directed. She reports that she has been having nausea vomiting with black emesis. Denies any bloody or black stools. She has no fevers. She reported that she was at [place] yesterday with similar symptoms but then left AMA because she had to to care of her son. Based on previous medical record she has a history of noncompliance. Allergies: Morphine Medications: See PATRIC DEL [place]STILLO Const: As per HPI Eyes : No pain discharge or redness or change in visual acuity ENT: No pain, sore throat, congestion, congestion, dysphagia or discharge Respiratory: No shortness of breath, cough, sputum, wheezing, or pleuritic pain Cardiovascular: No chest pain, palpitation, PND, or edema GI : As per HPI Genitourinary: No dysuria, hematuria, flank pain , discharge or CVA tenderness Musculoskeletal: No joint pain, back pain, neck pain, restricted range of motion in neck or joints Skin: No rash, bruising or hives Neuro: No headache, dizziness, syncope, seizure, focal weakness Endocrine: No polyuria, polydipsia, temperature intolerance Psych: No hallucination, depression, anxiety or suicidal ideation PMH/Family/Social Past Medical History Diabetes mellitus type 1, asthma, pancreatitis, history of multiple DKA episodes Medications Current Medications Potassium Chloride/Sodium Chloride 1,000 ml @ 0 mls/hr Q0M IV ; Start 08/14/18 at 06:01 Potassium Chloride/Dextrose/ Sod Cl 1,000 ml @ 0 mls/hr Q0M IV ; Start 08/14/18 at 06:01 Potassium Chloride/Sodium Chloride 1,000 ml @ 0 mls/hr Q0M IV Last administered on 08/14/18at 07:53; Admin Dose 250 MLS/HR; Start 08/14/18 at 06:01 Potassium Chloride/Dextrose/ Sod Cl 1,000 ml @ 0 mls/hr Q0M IV ; Start 08/14/18 at 06:01 Sodium Chloride 1,000 ml @ 0 mls/hr Q0M IV ; Start 08/14/18 at 06:01 Dextrose/Sodium Chloride 1,000 ml @ 0 mls/hr Q0M IV ; Start 08/14/18 at 06:01 Insulin Human Regular 100 unit/ Sodium Chloride 101 ml @ 8.69 mls/hr ER DKA PROTOCOL IV Last administered on 08/14/18at 07:51; Admin Dose 8.69 MLS/HR; Start 08/14/18 at 06:30 Miscellaneous Information (* Miscellaneous Pharmacy Order) HYPOGLYCEMIA TREATMENT HYPOGLYCEM PROTOCOL PRN XX .HYPOGLYCEMIA PROTOCOL; Start 08/14/18 at 06:30 Dextrose (D50w Syringe) 50 ml Q15M PRN IV .DECREASED GLUCOSE; Start 08/14/18 at 06:30 Dextrose (D50w Syringe) 25 ml Q15M PRN IV .DECREASED GLUCOSE; Start 08/14/18 at 06:30 Lidocaine (Xylocaine 1% (Mpf)) 30 ml ONCE PRN INJ iv insertion; Start 08/14/18 at 07:00 Ondansetron HCl (Zofran Inj) 4 mg Q6H PRN IV NAUSEA AND/OR VOMITING; Start 08/14/18 at 07:30 Acetaminophen (Tylenol Liquid) 650 mg Q6H PRN PO PAIN LEVEL 1-3 OR FEVER; Start 08/14/18 at 07:30 Hydromorphone HCl (Dilaudid) 0.5 mg Q4H PRN IV PAIN LEVEL 7-10; Start 08/14/18 at 07:30 Pantoprazole (Protonix Iv) 40 mg BID@0600,1800 IV Last administered on 08/14/18at 07:57; Admin Dose 40 MG; Start 08/14/18 at 08:00 Coded Allergies: morphine (Verified Allergy, Unknown, TAKE WITH BENADRYL, 04/26/17) Past Surgical History x1, right arm surgery, lap band surgery Past Surgical Hx: other Family History Significant Family History: no pertinent family hx Social History Alcohol Use: none Smoking Status: Never smoker Drug Use: none Exam/Review of Systems Vital Signs Vitals Vital Signs Date Temp Pulse Resp B/P (MAP) Pulse Ox O2 O2 Flow FiO2 Time Delivery Rate 08/14/18 98.3 88 22 100/51 100 Nasal 3.0 07:30 (67) Cannula 88 Exam Exam General: Patient is currently lying in bed she appears to be in mild distress and abdominal pain HEENT: Atraumatic, normocephalic. The pupils are equal, round and reactive. Extraocular motor are intact Neck: Supple with full range of motion. No rigidity or meningismus Chest: Nontender Lungs: Clear to auscultation bilaterally no crackles rales or wheezing Heart: Sinus tachycardia Abdomen: Soft, generalized tenderness to palpation, no rebound or guarding. Normal bowel sounds. Extremities: Normal to inspection, no edema no cyanosis Skin: Lower extremity scab wounds from fall in the past Neurologic: Normal mental status, speech normal, cranial nerves II through XII are intact, motor and sensory are intact, MERNA WALTERS August 14, 2018 08:43
[2018-08-14] MEDS ORDERED: INSU300I SQ (09:18)
[2018-08-14] MEDS ORDERED: LORA10TA3 PO (09:21)
[2018-08-14] MEDS ORDERED: FENO200 PO (09:21)
[2018-08-14] MEDS ORDERED: MONT10TA21 PO (09:21)
[2018-08-14] MEDS ORDERED: ZOLP10TA5 PO (09:22)
[2018-08-14] MEDS ORDERED: LOSA25TA12 PO (09:22)
[2018-08-14] MEDS ORDERED: ATOR-2 PO (09:22)
[2018-08-14] MEDS ORDERED: AMLO5TAB4 PO (09:22)
[2018-08-14] MEDS ORDERED: SITA1TAB PO (09:23)
[2018-08-14] MEDS ORDERED: OMEP20CA16 PO (09:23)
--- NOTE | 2018-08-14 11:08 | PN ---
Date/Time of Note Date/Time of Note DATE: 08/14/18 TIME: 11:02 Assessment/Plan VTE Prophylaxis SCD applied (from Nsg): Yes Pharmacological prophylaxis: NA/contraindicated Pharm contraindication: low risk/ambulating Lines/Catheters IV Catheter Type (from Nrsg): Mid Line Urinary Cath still in place: No Assessment/Plan Assessment/Plan 38 yo obese woman with insulin-dependent diabetes presents with abdominal pain and vomiting, found to be in DKA. #insulin-dependent diabetes #diabetic ketoacidosis: - Likely related to acute gastroenteritis with vomiting and abdominal pain. - Currently with open gap - Continue insulin gtt and IV fluids, NPO per protocol. - Will check HgbA1C - Prior to admission, patient had been stable on toujeo 100u qAM for two years. Reports she took last dose yesterday morning. Will plan to transition back to this regimen when gap closed. #Nausea, vomiting - Patient reports black emesis prior to admission. Hgb is 15.7 and no black stool so no strong suspicion for brisk GI bleed at this time. Will monitor closely. - She denies diarrhea. Last bowel movement 3 days ago. - Protonix 40 mg IV twice daily. - Resume diet when DKA resolves. # severe metabolic acidosis: - Secondary to DKA and GI losses. # obesity: We will check hemoglobin A 1C, lipid panel, TSH # asthma: Stable, PRN inhaler if indicated # DVT GI prophylaxis: SCDs, Protonix IV Further treatment strategy will be implemented as per the clinical course Greater than 45 minutes critical care time was spent on the care management patient. Result Diagram: 08/14/18 0518 08/14/18 0853 Subjective 24 Hr Interval Summary Free Text/Dictation Patient still with burning epigastric and chest pain likely related to vomiting. Still with wide open anion gap. Admitted to ICU on insulin gtt. Exam/Review of Systems Exam Vitals Vital Signs Date Temp Pulse Resp B/P (MAP) Pulse Ox O2 O2 Flow FiO2 Time Delivery Rate 08/14/18 82 24 117/73 99 Nasal 3.0 10:30 (88) Cannula 08/14/18 98.4 09:57 Exam General: Patient is currently lying in bed she appears to be in mild distress and abdominal pain HEENT: Atraumatic, normocephalic. The pupils are equal, round and reactive. Extraocular motor are intact Neck: Supple with full range of motion. No rigidity or meningismus Chest: Nontender Lungs: Clear to auscultation bilaterally no crackles rales or wheezing Heart: Sinus tachycardia Abdomen: Soft, generalized tenderness to palpation, no rebound or guarding. Hypoactive bowel sounds. Extremities: Normal to inspection, no edema no cyanosis Skin: Lower extremity scab wounds from fall in the past Results Results 24hrs Laboratory Tests Test 08/14/18 04:57 08/14/18 05:02 08/14/18 05:11 08/14/18 05:18 Bedside Glucose 567 *H Blood Gas Blood venous Specimen Source Arterial Blood 08/14/2018 6:00: Date Drawn 28 AM Arterial Blood VENOUS LINE Gas Puncture Site Yobani Test N/A Venous Blood pH 7.152 *L Venous Blood 19.1 L pCO2 (Temp Corrected) Venous Blood pO2 33.1 H (Temp Corrected) Venous Blood 6.5 L HCO3 Venous Blood 58.3 Oxygen Saturation Venous Blood -20.3 L Base Excess Venous Blood 13.4 Total Hemoglobin Venous Blood 58.1 Oxyhemoglobin Venous Blood 0.1 Methemoglobin Carboxyhemoglobi 0.3 n Blood Gas 37.0 Temperature Blood Gas Actual 30 Respiration Rate Blood Gas NASAL CANNULA Modality FiO2 30.0 Blood Gas OSTICK B Critical Value Read Back Blood Gas KB Notified Whom Blood Gas 08/14/2018 6:07: Notified Time 35 AM Urine Color COLORLESS Urine Clarity CLEAR Urine pH 6.0 Urine Specific 1.017 [place] Urine Ketones 2+ H Urine Nitrite NEGATIVE Urine Bilirubin NEGATIVE Urine NEGATIVE Urobilinogen Urine Leukocyte NEGATIVE Esterase Urine 1 Microscopic RBC Urine 1 Microscopic WBC Urine Hemoglobin 1+ H Urine Glucose 3+ H Urine Total 1+ H Protein White Blood 16.4 #H Count Red Blood Count 4.96 Hemoglobin 15.7 Hematocrit 43.8 Mean Corpuscular 88.3 Volume Mean Corpuscular 31.7 Hemoglobin Mean Corpuscular 35.8 Hemoglobin Joelle nt Red Cell 13.6 Distribution Width Platelet Count 403 # Mean Platelet 9.2 Volume Immature 1.000 H Granulocytes % Neutrophils % 68.1 Lymphocytes % 26.3 Monocytes % 4.2 Eosinophils % 0.2 Basophils % 0.2 Nucleated Red 0.0 Blood Cells % Immature 0.160 H Granulocytes # Neutrophils # 11.1 H Lymphocytes # 4.3 H Monocytes # 0.7 Eosinophils # 0.0 Basophils # 0.0 Nucleated Red 0.0 Blood Cells # Sodium Level 133 L Potassium Level 4.4 Chloride Level 100 Carbon Dioxide < 5 *L Level Anion Gap 28 H Blood Urea 24 H Nitrogen Creatinine 1.10 H Est Glomerular 56 L Filtrat Rate mL/min Glucose Level 624 *H Hemoglobin A1c 13.0 H Calcium Level 8.2 L Phosphorus Level 6.8 H Magnesium Level 1.9 Total Bilirubin 0.4 Direct Bilirubin 0.00 Indirect 0.4 Bilirubin Aspartate Amino 22 Transf (AST/SGOT ) Alanine 25 Aminotransferase (ALT/SGPT) Alkaline 159 H Phosphatase Total Protein 7.5 Albumin 3.3 Globulin 4.20 H Albumin/Globulin 0.78 Ratio POC Beta HCG, NEGATIVE Qualitative Test 08/14/18 05:20 08/14/18 06:31 08/14/18 07:50 08/14/18 08:01 Bedside Glucose 554 *H 539 *H 577 *H Blood Gas Blood venous Specimen Source Arterial Blood 08/14/2018 9:20: Date Drawn 28 AM Arterial Blood VENOUS LINE Gas Puncture Site Yobani Test N/A Venous Blood pH 7.195 *L Venous Blood 20.8 L pCO2 (Temp Corrected) Venous Blood pO2 38.2 H (Temp Corrected) Venous Blood 7.9 L HCO3 Venous Blood 69.3 Oxygen Saturation Venous Blood -18.3 L Base Excess Venous Blood 12.9 Total Hemoglobin Venous Blood 69.0 Oxyhemoglobin Venous Blood 0.2 Methemoglobin Carboxyhemoglobi 0.2 n Blood Gas 37.0 Temperature Blood Gas NASAL CANNULA Modality FiO2 28.[address] ONTIVEROS Critical Value Read Back Blood Gas Isidra Notified Whom Blood Gas 08/14/2018 9:28: Notified Time 02 AM Test 08/14/18 08:51 08/14/18 08:53 08/14/18 09:00 08/14/18 10:08 Bedside Glucose 481 *H 395 H Sodium Level 137 Potassium Level 4.0 Chloride Level 108 Carbon Dioxide < 5 *L Level Anion Gap 24 H Blood Urea 23 H Nitrogen Creatinine 0.94 Est Glomerular > 60 Filtrat Rate mL/min Glucose Level 492 *H Hemoglobin A1c 12.7 H Calcium Level 7.8 L Phosphorus Level 4.7 # Magnesium Level 1.9 Lipase 23 Ethyl Alcohol < 10.0 H Level Urine Color COLORLESS Urine Clarity CLEAR Urine pH 6.0 Urine Specific 1.016 [place] Urine Ketones 2+ H Urine Nitrite NEGATIVE Urine Bilirubin NEGATIVE Urine NEGATIVE Urobilinogen Urine Leukocyte NEGATIVE Esterase Urine 0 Microscopic RBC Urine 1 Microscopic WBC Urine Hemoglobin 1+ H Urine Glucose 3+ H Urine Total 1+ H Protein Urine Opiates NEGATIVE Screen Urine POSITIVE Barbiturates Urine NEGATIVE Amphetamines Screen Urine NEGATIVE Benzodiazepines Screen Urine Cocaine NEGATIVE Screen Urine NEGATIVE Cannabinoids Medications Medication Current Medications Potassium Chloride/Sodium Chloride 1,000 ml @ 0 mls/hr Q0M IV ; Start 08/14/18 at 06:01 Potassium Chloride/Dextrose/ Sod Cl 1,000 ml @ 0 mls/hr Q0M IV ; Start 08/14/18 at 06:01 Potassium Chloride/Sodium Chloride 1,000 ml @ 0 mls/hr Q0M IV Last administered on 08/14/18at 07:53; Admin Dose 250 MLS/HR; Start 08/14/18 at 06:01 Potassium Chloride/Dextrose/ Sod Cl 1,000 ml @ 0 mls/hr Q0M IV ; Start 08/14/18 at 06:01 Sodium Chloride 1,000 ml @ 0 mls/hr Q0M IV ; Start 08/14/18 at 06:01 Dextrose/Sodium Chloride 1,000 ml @ 0 mls/hr Q0M IV ; Start 08/14/18 at 06:01 Insulin Human Regular 100 unit/ Sodium Chloride 101 ml @ 8.69 mls/hr ER DKA PROTOCOL IV Last administered on 08/14/18at 07:51; Admin Dose 8.69 MLS/HR; Start 08/14/18 at 06:30 Miscellaneous Information (* Miscellaneous Pharmacy Order) HYPOGLYCEMIA TREATMENT HYPOGLYCEM PROTOCOL PRN XX .HYPOGLYCEMIA PROTOCOL; Start 08/14/18 at 06:30 Dextrose (D50w Syringe) 50 ml Q15M PRN IV .DECREASED GLUCOSE; Start 08/14/18 at 06:30 Dextrose (D50w Syringe) 25 ml Q15M PRN IV .DECREASED GLUCOSE; Start 08/14/18 at 06:30 Lidocaine (Xylocaine 1% (Mpf)) 30 ml ONCE PRN INJ iv insertion; Start 08/14/18 at 07:00 Ondansetron HCl (Zofran Inj) 4 mg Q6H PRN IV NAUSEA AND/OR VOMITING; Start 08/14/18 at 07:30 Acetaminophen (Tylenol Liquid) 650 mg Q6H PRN PO PAIN LEVEL 1-3 OR FEVER; Start 08/14/18 at 07:30 Hydromorphone HCl (Dilaudid) 0.5 mg Q4H PRN IV PAIN LEVEL 7-10 Last administered on 08/14/18at 10:14; Admin Dose 0.5 MG; Start 08/14/18 at 07:30 Pantoprazole (Protonix Iv) 40 mg BID@0600,1800 IV Last administered on 08/14/18at 07:57; Admin Dose 40 MG; Start 08/14/18 at 08:00 VINCENT ENGLE MD August 14, 2018 11:08
[2018-08-14] MEDS: D10/0.45% NACL + KCL 30 MEQ 1,000 ML IV SCH ×2 (12:05→19:31)
[2018-08-14] MEDS: HYDROmorphONE 0.5 MG/0.5 ML SYG IV PRN ×4 (12:11→23:48)
--- NOTE | 2018-08-14 13:37 | CONS ---
Assessment/Plan Assessment/Plan Hospital Course (Demo Recall) Summary Assessment and Plan: Assessment: Nausea/vomiting -With reported dark emesis prior to admission -Hgb 15 -No complaints of melena or diarrhea DKA-management per medical team DM- poorly controlled -HgbA1c 12.7 Severe metabolic acidosis: Fatty liver with hepatomegaly Obesity Asthma Plan: Continue PPI twice daily Monitor for overt signs of GI bleed and H/H No plan for EGD at this time Patient seen in collaboration with Dr. Rondon CC: LORENZO RONDON MD ; Consultation Date/Type/Reason Admit Date/Time Date of Consultation: August 14, 2018 Type of Consult GI Reason for Consultation Reported dark emesis Date/Time of Note DATE: 08/14/18 TIME: 13:28 Hx of Present Illness This is a 38 year old female with PMH of obesity, poorly controlled DM, Admitted for diabetic ketoacidosis during evaluation in the ED patient also reported black emesis she had a CT abdomen/pelvis without contrast showing small to moderate size hiatal hernia otherwise unremarkable stomach, no evidence of diverticulitis or appendicitis, hepatomegaly with fatty infiltration, no calcified urinary calculi or obstructive uropathy, 5 cm right adnexal cyst consistent with ovarian/paraovarian cyst no other adnexal masses noted initial labs show a leukocytosis of 16.4, normal hemoglobin of 15.7 and she denies further episodes of dark emesis no complaints of hematochezia or melena. Been admitted to ICU currently on insulin drip and n.p.o. per protocol. At this time we will continue to monitor H/H monitor for overt signs of GI bleed continue PPI twice daily but no plan for endoscopy. Review of Systems: A 12 system, review was conducted and is negative except as noted in the HPI or here. Past Medical History Home Meds Reported Medications Sitagliptin Phos/Metformin HCl (Janumet 50-500 mg Tablet) 1 Each Tablet, 1 EACH PO BID, TAB 08/14/18 Omeprazole* (Omeprazole*) 20 Mg Capsule., 20 MG PO DAILY, #30 CAP 08/14/18 Losartan Potassium* (Losartan Potassium*) 25 Mg Tablet, 25 MG PO DAILY, TAB 08/14/18 Zolpidem Tartrate* (Zolpidem Tartrate*) 10 Mg Tablet, 10 MG PO QHS PRN for INSOMNIA, #30 TAB 08/14/18 Amlodipine Besylate* (Norvasc*) 5 Mg Tablet, 5 MG PO DAILY, TAB 08/14/18 Atorvastatin* (Atorvastatin*) 80 Mg Tablet, 80 MG PO QHS, #30 TAB 08/14/18 Montelukast Sodium* (Singulair*) 10 Mg Tablet, 10 MG PO QHS, #30 TAB 08/14/18 Fenofibrate* (Fenofibrate*) 200 Mg Cap, 200 MG PO DAILY, CAP 08/14/18 Loratadine* (Loratadine*) 10 Mg Tablet, 10 MG PO DAILY, #30 TAB 08/14/18 Insulin Glargine,Hum.rec.anlog (Toujeo Solostar) 300 Unit/1 Ml Insuln.pen, 100 UNIT SQ QAM, EA 08/14/18 Albuterol Sulfate* (Proair HFA*) 8.5 Gm Hfa.aer.ad, 2 PUFF INH Q4, #1 INHALER 05/09/17 Pantoprazole* (Protonix*) 40 Mg Tablet.dr, 40 MG PO DAILY, TAB 04/26/17 Atenolol* (Atenolol*) 25 Mg Tablet, 50 MG PO DAILY PRN for ELEVATED BLOOD PRESSURE, #30 TAB 04/26/17 Discontinued Reported Medications Fenofibrate Nanocrystallized* (Tricor*) 145 Mg Tablet, 145 MG PO DAILY, TAB 05/09/17 Insulin Lispro (Humalog Kwikpen U-100) 100 Unit/1 Ml Insuln.pen, 0 SQ, EA INJECT 60u plus sliding Scale 05/09/17 Insulin Glargine,Hum.rec.anlog (Toujeo Solostar) 300 Unit/1 Ml Insuln.pen, 80 UNIT SQ QHS, EA 04/26/17 Insulin Lispro (Humalog Kwikpen U-100) 100 Unit/1 Ml Insuln.pen, 0 SQ AC MEALS, EA 04/26/17 Discontinued Scripts Doxycycline Hyclate* (Doxycycline Hyclate*) 100 Mg Tablet., 100 MG PO BID for 10 Days, TAB Prov:FREDO ERICKSON PA-C 05/03/18 Naproxen* (Naprosyn*) 500 Mg Tablet, 500 MG PO BID PRN for PAIN AND/OR INFLAMMATION, #30 TAB Prov:ADRI RAO 05/03/18 Metoclopramide* (Reglan*) 10 Mg Tablet, 10 MG PO Q6 PRN for NAUSEA AND/OR VOMITING, #20 TAB Prov:ADRI RAO 05/03/18 Medications Current Medications Potassium Chloride/Sodium Chloride 1,000 ml @ 0 mls/hr Q0M IV ; Start 08/14/18 at 06:01 Potassium Chloride/Dextrose/ Sod Cl 1,000 ml @ 0 mls/hr Q0M IV ; Start 08/14/18 at 06:01 Potassium Chloride/Sodium Chloride 1,000 ml @ 0 mls/hr Q0M IV Last administered on 08/14/18at 11:45; Admin Dose 250 MLS/HR; Start 08/14/18 at 06:01 Potassium Chloride/Dextrose/ Sod Cl 1,000 ml @ 0 mls/hr Q0M IV Last administered on 08/14/18at 12:05; Admin Dose 150 MLS/HR; Start 08/14/18 at 06:01 Sodium Chloride 1,000 ml @ 0 mls/hr Q0M IV ; Start 08/14/18 at 06:01 Dextrose/Sodium Chloride 1,000 ml @ 0 mls/hr Q0M IV ; Start 08/14/18 at 06:01 Insulin Human Regular 100 unit/ Sodium Chloride 101 ml @ 8.69 mls/hr ER DKA PROTOCOL IV Last administered on 08/14/18at 07:51; Admin Dose 8.69 MLS/HR; Start 08/14/18 at 06:30 Miscellaneous Information (* Miscellaneous Pharmacy Order) HYPOGLYCEMIA TREATMENT HYPOGLYCEM PROTOCOL PRN XX .HYPOGLYCEMIA PROTOCOL; Start 08/14/18 at 06:30 Dextrose (D50w Syringe) 50 ml Q15M PRN IV .DECREASED GLUCOSE; Start 08/14/18 at 06:30 Dextrose (D50w Syringe) 25 ml Q15M PRN IV .DECREASED GLUCOSE; Start 08/14/18 at 06:30 Lidocaine (Xylocaine 1% (Mpf)) 30 ml ONCE PRN INJ iv insertion; Start 08/14/18 at 07:00 Ondansetron HCl (Zofran Inj) 4 mg Q6H PRN IV NAUSEA AND/OR VOMITING; Start 08/14/18 at 07:30 Acetaminophen (Tylenol Liquid) 650 mg Q6H PRN PO PAIN LEVEL 1-3 OR FEVER; Start 08/14/18 at 07:30 Pantoprazole (Protonix Iv) 40 mg BID@0600,1800 IV Last administered on 08/14/18at 07:57; Admin Dose 40 MG; Start 08/14/18 at 08:00 Hydromorphone HCl (Dilaudid) 0.5 mg Q4H PRN IV PAIN LEVEL 7-10 Last administered on 08/14/18at 12:11; Admin Dose 0.5 MG; Start 08/14/18 at 12:00 Allergies: Coded Allergies: morphine (Verified Allergy, Unknown, TAKE WITH BENADRYL, 08/14/18) Past Surgical History Past Surgical Hx: other Social History Alcohol Use: none Smoking Status: Never smoker Drug Use: none Exam/Review of Systems Exam Vitals Vital Signs Date Temp Pulse Resp B/P (MAP) Pulse Ox O2 O2 Flow FiO2 Time Delivery Rate 08/14/18 81 23 103/70 99 Room Air 13:00 (81) 08/14/18 98.4 12:00 08/14/18 3.0 10:30 Exam PHYSICAL EXAMINATION: GENERAL: Well developed, well nourished, alert & oriented x 3, in no acute distress SKIN: No lesions, no stigmata chronic liver disease, no evidence of bleeding diathesis EYES: Pupils equal reactive to light and accommodation, no discharge. EARS/NOSE AND THROAT: Ears normal, nose normal, oropharynx normal. NECK: Supple, no masses. CHEST: Inspection within normal limits. CARDIOVASCULAR: Heart: Regular rate and rhythm RESPIRATORY: Lungs clear to auscultation and percussion, no wheezing, no rubs GASTROINTESTINAL AND LIVER: Abdomen: Soft, non tenderness, non-distended, no hernias, no masses, no organomegaly, no ascites, no guarding, no rebound tenderness, normoactive bowel sounds. Rectal: Deferred. Results Result Diagram: 08/14/18 0518 08/14/18 1102 Results 24hrs Laboratory Tests Test 08/14/18 04:57 08/14/18 05:02 08/14/18 05:11 08/14/18 05:18 Bedside Glucose 567 *H Blood Gas Blood venous Specimen Source Arterial Blood 08/14/2018 6:00: Date Drawn 28 AM Arterial Blood VENOUS LINE Gas Puncture Site Yobani Test N/A Venous Blood pH 7.152 *L Venous Blood 19.1 L pCO2 (Temp Corrected) Venous Blood pO2 33.1 H (Temp Corrected) Venous Blood 6.5 L HCO3 Venous Blood 58.3 Oxygen Saturation Venous Blood -20.3 L Base Excess Venous Blood 13.4 Total Hemoglobin Venous Blood 58.1 Oxyhemoglobin Venous Blood 0.1 Methemoglobin Carboxyhemoglobi 0.3 n Blood Gas 37.0 Temperature Blood Gas Actual 30 Respiration Rate Blood Gas NASAL CANNULA Modality FiO2 30.0 Blood Gas OSTICK Cristino CASTAÑEDA Critical Value Read Back Blood Gas KB Notified Whom Blood Gas 08/14/2018 6:07: Notified Time 35 AM Urine Color COLORLESS Urine Clarity CLEAR Urine pH 6.0 Urine Specific 1.017 [place] Urine Ketones 2+ H Urine Nitrite NEGATIVE Urine Bilirubin NEGATIVE Urine NEGATIVE Urobilinogen Urine Leukocyte NEGATIVE Esterase Urine 1 Microscopic RBC Urine 1 Microscopic WBC Urine Hemoglobin 1+ H Urine Glucose 3+ H Urine Total 1+ H Protein White Blood 16.4 #H Count Red Blood Count 4.96 Hemoglobin 15.7 Hematocrit 43.8 Mean Corpuscular 88.3 Volume Mean Corpuscular 31.7 Hemoglobin Mean Corpuscular 35.8 Hemoglobin Joelle nt Red Cell 13.6 Distribution Width Platelet Count 403 # Mean Platelet 9.2 Volume Immature 1.000 H Granulocytes % Neutrophils % 68.1 Lymphocytes % 26.3 Monocytes % 4.2 Eosinophils % 0.2 Basophils % 0.2 Nucleated Red 0.0 Blood Cells % Immature 0.160 H Granulocytes # Neutrophils # 11.1 H Lymphocytes # 4.3 H Monocytes # 0.7 Eosinophils # 0.0 Basophils # 0.0 Nucleated Red 0.0 Blood Cells # Sodium Level 133 L Potassium Level 4.4 Chloride Level 100 Carbon Dioxide < 5 *L Level Anion Gap 28 H Blood Urea 24 H Nitrogen Creatinine 1.10 H Est Glomerular 56 L Filtrat Rate mL/min Glucose Level 624 *H Hemoglobin A1c 13.0 H Calcium Level 8.2 L Phosphorus Level 6.8 H Magnesium Level 1.9 Total Bilirubin 0.4 Direct Bilirubin 0.00 Indirect 0.4 Bilirubin Aspartate Amino 22 Transf (AST/SGOT ) Alanine 25 Aminotransferase (ALT/SGPT) Alkaline 159 H Phosphatase Total Protein 7.5 Albumin 3.3 Globulin 4.20 H Albumin/Globulin 0.78 Ratio POC Beta HCG, NEGATIVE Qualitative Test 08/14/18 05:20 08/14/18 06:31 08/14/18 07:50 08/14/18 08:01 Bedside Glucose 554 *H 539 *H 577 *H Blood Gas Blood venous Specimen Source Arterial Blood 08/14/2018 9:20: Date Drawn 28 AM Arterial Blood VENOUS LINE Gas Puncture Site Yobani Test N/A Venous Blood pH 7.195 *L Venous Blood 20.8 L pCO2 (Temp Corrected) Venous Blood pO2 38.2 H (Temp Corrected) Venous Blood 7.9 L HCO3 Venous Blood 69.3 Oxygen Saturation Venous Blood -18.3 L Base Excess Venous Blood 12.9 Total Hemoglobin Venous Blood 69.0 Oxyhemoglobin Venous Blood 0.2 Methemoglobin Carboxyhemoglobi 0.2 n Blood Gas 37.0 Temperature Blood Gas NASAL CANNULA Modality FiO2 28.[address] ONTIVEROS Critical Value Read Back Blood Gas Isidra Notified Whom Blood Gas 08/14/2018 9:28: Notified Time 02 AM Test 08/14/18 08:51 08/14/18 08:53 08/14/18 09:00 08/14/18 10:08 Bedside Glucose 481 *H 395 H Sodium Level 137 Potassium Level 4.0 Chloride Level 108 Carbon Dioxide < 5 *L Level Anion Gap 24 H Blood Urea 23 H Nitrogen Creatinine 0.94 Est Glomerular > 60 Filtrat Rate mL/min Glucose Level 492 *H Hemoglobin A1c 12.7 H Calcium Level 7.8 L Phosphorus Level 4.7 # Magnesium Level 1.9 Lipase 23 Ethyl Alcohol < 10.0 H Level Urine Color COLORLESS Urine Clarity CLEAR Urine pH 6.0 Urine Specific 1.016 [place] Urine Ketones 2+ H Urine Nitrite NEGATIVE Urine Bilirubin NEGATIVE Urine NEGATIVE Urobilinogen Urine Leukocyte NEGATIVE Esterase Urine 0 Microscopic RBC Urine 1 Microscopic WBC Urine Hemoglobin 1+ H Urine Glucose 3+ H Urine Total 1+ H Protein Urine Opiates NEGATIVE Screen Urine POSITIVE Barbiturates Urine NEGATIVE Amphetamines Screen Urine NEGATIVE Benzodiazepines Screen Urine Cocaine NEGATIVE Screen Urine NEGATIVE Cannabinoids Test 08/14/18 11:01 08/14/18 11:02 08/14/18 12:02 08/14/18 13:07 Bedside Glucose 344 H 288 H 301 H Sodium Level 137 Potassium Level 4.3 Chloride Level 110 Carbon Dioxide 6 *L Level Anion Gap 21 H Blood Urea 23 H Nitrogen Creatinine 0.92 Est Glomerular > 60 Filtrat Rate mL/min Glucose Level 347 H Calcium Level 7.6 L Phosphorus Level 3.5 Magnesium Level 1.9 Medications Medication Current Medications Potassium Chloride/Sodium Chloride 1,000 ml @ 0 mls/hr Q0M IV ; Start 08/14/18 at 06:01 Potassium Chloride/Dextrose/ Sod Cl 1,000 ml @ 0 mls/hr Q0M IV ; Start 08/14/18 at 06:01 Potassium Chloride/Sodium Chloride 1,000 ml @ 0 mls/hr Q0M IV Last administered on 08/14/18at 11:45; Admin Dose 250 MLS/HR; Start 08/14/18 at 06:01 Potassium Chloride/Dextrose/ Sod Cl 1,000 ml @ 0 mls/hr Q0M IV Last administered on 08/14/18at 12:05; Admin Dose 150 MLS/HR; Start 08/14/18 at 06:01 Sodium Chloride 1,000 ml @ 0 mls/hr Q0M IV ; Start 08/14/18 at 06:01 Dextrose/Sodium Chloride 1,000 ml @ 0 mls/hr Q0M IV ; Start 08/14/18 at 06:01 Insulin Human Regular 100 unit/ Sodium Chloride 101 ml @ 8.69 mls/hr ER DKA PROTOCOL IV Last administered on 08/14/18at 07:51; Admin Dose 8.69 MLS/HR; Start 08/14/18 at 06:30 Miscellaneous Information (* Miscellaneous Pharmacy Order) HYPOGLYCEMIA TREATMENT HYPOGLYCEM PROTOCOL PRN XX .HYPOGLYCEMIA PROTOCOL; Start 08/14/18 at 06:30 Dextrose (D50w Syringe) 50 ml Q15M PRN IV .DECREASED GLUCOSE; Start 08/14/18 at 06:30 Dextrose (D50w Syringe) 25 ml Q15M PRN IV .DECREASED GLUCOSE; Start 08/14/18 at 06:30 Lidocaine (Xylocaine 1% (Mpf)) 30 ml ONCE PRN INJ iv insertion; Start 08/14/18 at 07:00 Ondansetron HCl (Zofran Inj) 4 mg Q6H PRN IV NAUSEA AND/OR VOMITING; Start 08/14/18 at 07:30 Acetaminophen (Tylenol Liquid) 650 mg Q6H PRN PO PAIN LEVEL 1-3 OR FEVER; Start 08/14/18 at 07:30 Pantoprazole (Protonix Iv) 40 mg BID@0600,1800 IV Last administered on 08/14/18at 07:57; Admin Dose 40 MG; Start 08/14/18 at 08:00 Hydromorphone HCl (Dilaudid) 0.5 mg Q4H PRN IV PAIN LEVEL 7-10 Last administered on 08/14/18at 12:11; Admin Dose 0.5 MG; Start 08/14/18 at 12:00 WILLARD NICOLE August 14, 2018 13:37
[2018-08-14] MEDS: ONDANSETRON 4 MG INJ IV PRN ×2 (15:31→21:42)
--- NOTE | 2018-08-14 17:56 | CONS ---
Assessment/Plan Assessment/Plan Problems: (1) DKA (diabetic ketoacidosis) Status: Resolved Comment: The DKA is clearing at this time. Continue with IV insulin protocol and fluid hydration. No further indication for bicarbonate in this individual. The question is raises what set off the diabetic ketoacidosis. Therefore full check for infection is appropriate as well as pancreatitis. Please note the ini tial lipase was low but we do not know what the initial triglycerides were which can throw off the test Qualifiers: Qualified Codes: E10.10 - Type 1 diabetes mellitus with ketoacidosis without coma (2) Hypertriglyceridemia Status: Chronic Comment: Will order lipid profile for the morning. However the patient goes back on the fenofibrate and the omega-3 fish oil in combination with the insulin drip (3) Status post open reduction with internal fixation of fracture Onset Date: ~ 04/26/2017 Comment: Noted. (4) Asthma Status: Chronic Comment: Stable at this time Qualifiers: Qualified Codes: J45.40 - Moderate persistent asthma, uncomplicated (5) Type 2 diabetes mellitus Status: Chronic Comment: Check C-peptide for this patient Qualifiers: Qualified Codes: E11.9 - Type 2 diabetes mellitus without complications; Z79.4 - ad terminal makeup operator (current) use of insulin Consultation Date/Type/Reason Admit Date/Time 08/14/2018 Date of Consultation: August 14, 2018 Type of Consult Endocrine Reason for Consultation Diabetes mellitus type 2 versus type I with DKA; obesity; fatty liver; mixed hyperlipidemia with severe hypertriglyceridemia; history of pancreatitis; history of pancreatic pseudocyst; migraine syndrome; history of right humerus midshaft fracture with palsy; asthma persistent moderate Requesting Provider: MERNA WALTERS Date/Time of Note DATE: 08/14/18 TIME: 17:46 Hx of Present Illness 38-year-old Yi female with several prior admissions to this facility. She has a history of insulin resistance syndrome as well as diabetes. She had been insulin treated due to the hypertriglyceridemia however she is only on Toujeo insulin at 100 units a day the short acting Humalog apparently she did not tolerate well. Her description of the intolerance is somewhat vague. She been her usual state of health but developed nausea vomiting abdominal pain and will present to the emergency room in DKA Constitutional: no complaints Eyes: no complaints ENT: no complaints Respiratory: no complaints Cardiovascular: no complaints Gastrointestinal: nausea, vomiting Genitourinary: no complaints Musculoskeletal: no complaints Skin: no complaints Neurologic: no complaints Past Medical History Medical History: diabetes (Type II), hepatitis (Fatty liver), high cholesterol (Hyperlipidemia with marked hypertriglyceridemia), other (History of midst shaft right humerus fracture with right sided palsies; asthma persistent moderate; obesity) Home Meds Reported Medications Sitagliptin Phos/Metformin HCl (Janumet 50-500 mg Tablet) 1 Each Tablet, 1 EACH PO BID, TAB 08/14/18 Omeprazole* (Omeprazole*) 20 Mg Capsule.dr, 20 MG PO DAILY, #30 CAP 08/14/18 Losartan Potassium* (Losartan Potassium*) 25 Mg Tablet, 25 MG PO DAILY, TAB 08/14/18 Zolpidem Tartrate* (Zolpidem Tartrate*) 10 Mg Tablet, 10 MG PO QHS PRN for INSOMNIA, #30 TAB 08/14/18 Amlodipine Besylate* (Norvasc*) 5 Mg Tablet, 5 MG PO DAILY, TAB 08/14/18 Atorvastatin* (Atorvastatin*) 80 Mg Tablet, 80 MG PO QHS, #30 TAB 08/14/18 Montelukast Sodium* (Singulair*) 10 Mg Tablet, 10 MG PO QHS, #30 TAB 08/14/18 Fenofibrate* (Fenofibrate*) 200 Mg Cap, 200 MG PO DAILY, CAP 08/14/18 Loratadine* (Loratadine*) 10 Mg Tablet, 10 MG PO DAILY, #30 TAB 08/14/18 Insulin Glargine,Hum.rec.anlog (Ivis Peña) 300 Unit/1 Ml Insuln.pen, 100 UNIT SQ QAM, EA 08/14/18 Albuterol Sulfate* (Proair HFA*) 8.5 Gm Hfa.aer.ad, 2 PUFF INH Q4, #1 INHALER 05/09/17 Pantoprazole* (Protonix*) 40 Mg Tablet.dr, 40 MG PO DAILY, TAB 04/26/17 Atenolol* (Atenolol*) 25 Mg Tablet, 50 MG PO DAILY PRN for ELEVATED BLOOD PRESSURE, #30 TAB 04/26/17 Discontinued Reported Medications Fenofibrate Nanocrystallized* (Tricor*) 145 Mg Tablet, 145 MG PO DAILY, TAB 05/09/17 Insulin Lispro (Humalog Kwikpen U-100) 100 Unit/1 Ml Insuln.pen, 0 SQ, EA INJECT 60u plus sliding Scale 05/09/17 Insulin Glargine,Hum.rec.anlog (Toudevonparvez Bayleeashley) 300 Unit/1 Ml Insuln.pen, 80 UNIT SQ QHS, EA 04/26/17 Insulin Lispro (Humalog Kwikpen U-100) 100 Unit/1 Ml Insuln.pen, 0 SQ AC MEALS, EA 04/26/17 Discontinued Scripts Doxycycline Hyclate* (Doxycycline Hyclate*) 100 Mg Tablet.dr, 100 MG PO BID for 10 Days, TAB Prov:FREDO ERICKSON PA-C 05/03/18 Naproxen* (Naprosyn*) 500 Mg Tablet, 500 MG PO BID PRN for PAIN AND/OR INFLAMMATION, #30 TAB Prov:ADRI RAO F 05/03/18 Metoclopramide* (Reglan*) 10 Mg Tablet, 10 MG PO Q6 PRN for NAUSEA AND/OR VOMI TING, #20 TAB Prov:PASILABAN,KLAR F 05/03/18 Medications Current Medications Potassium Chloride/Sodium Chloride 1,000 ml @ 0 mls/hr Q0M IV ; Start 08/14/18 at 06:01 Potassium Chloride/Dextrose/ Sod Cl 1,000 ml @ 0 mls/hr Q0M IV ; Start 08/14/18 at 06:01 Potassium Chloride/Sodium Chloride 1,000 ml @ 0 mls/hr Q0M IV Last administered on 08/14/18at 11:45; Admin Dose 250 MLS/HR; Start 08/14/18 at 06:01 Potassium Chloride/Dextrose/ Sod Cl 1,000 ml @ 0 mls/hr Q0M IV Last administered on 08/14/18at 12:05; Admin Dose 150 MLS/HR; Start 08/14/18 at 06:01 Sodium Chloride 1,000 ml @ 0 mls/hr Q0M IV ; Start 08/14/18 at 06:01 Dextrose/Sodium Chloride 1,000 ml @ 0 mls/hr Q0M IV ; Start 08/14/18 at 06:01 Insulin Human Regular 100 unit/ Sodium Chloride 101 ml @ 8.69 mls/hr ER DKA PROTOCOL IV Last administered on 08/14/18at 07:51; Admin Dose 8.69 MLS/HR; Start 08/14/18 at 06:30 Miscellaneous Information (* Miscellaneous Pharmacy Order) HYPOGLYCEMIA ESDRAS ATMENT HYPOGLYCEM PROTOCOL PRN XX .HYPOGLYCEMIA PROTOCOL; Start 08/14/18 at 06:30 Dextrose (D50w Syringe) 50 ml Q15M PRN IV .DECREASED GLUCOSE; Start 08/14/18 at 06:30 Dextrose (D50w Syringe) 25 ml Q15M PRN IV .DECREASED GLUCOSE; Start 08/14/18 at 06:30 Lidocaine (Xylocaine 1% (Mpf)) 30 ml ONCE PRN INJ iv insertion; Start 08/14/18 at 07:00 Ondansetron HCl (Zofran Inj) 4 mg Q6H PRN IV NAUSEA AND/OR VOMITING Last administered on 08/14/18at 15:31; Admin Dose 4 MG; Start 08/14/18 at 07:30 Acetaminophen (Tylenol Liquid) 650 mg Q6H PRN PO PAIN LEVEL 1-3 OR FEVER; Start 08/14/18 at 07:30 Pantoprazole (Protonix Iv) 40 mg BID@0600,1800 IV Last administered on 08/14/18at 07:57; Admin Dose 40 MG; Start 08/14/18 at 08:00 Hydromorphone HCl (Dilaudid) 0.5 mg Q4H PRN IV PAIN LEVEL 7-10 Last administe red on 08/14/18at 16:03; Admin Dose 0.5 MG; Start 08/14/18 at 12:00 Magnesium Sulfate 50 ml @ 25 mls/hr ONCE ONCE IVPB ; Start 08/14/18 at 18:00; Stop 08/14/18 at 19:59 Fish Oil (Fish Oil) 2,000 mg BID PO ; Start 08/14/18 at 21:00 Allergies: Coded Allergies: morphine (Verified Allergy, Unknown, TAKE WITH BENADRYL, 08/14/18) Past Surgical History Past Surgical Hx: other (Status post ORIF right humerus fracture) Family History Significant Family History: diabetes Social History Alcohol Use: none Smoking Status: Never smoker Drug Use: none Exam/Review of Systems Exam Vitals Vital Signs Date Temp Pulse Resp B/P (MAP) Pulse Ox O2 O2 Flow FiO2 Time Delivery Rate 08/14/18 98.2 86 23 152/69 100 Room Air 16:00 (96) 08/14/18 3.0 10:30 Constitutional: alert, oriented Head: normocephalic, atraumatic ENMT: nl external ears & nose, nl lips & teeth, nl nasal mucosa & septum, mucosa pink and moist Neck: supple, non-tender Respiratory: clear to auscultation, normal air movement Cardiovascular: regular rate and rhythm, nl pulses Gastrointestinal: soft, nl liver, spleen, non-tender Extremities: normal pulses Results Result Diagram: 08/14/18 0518 08/14/18 1543 Results 24hrs Laboratory Tests Test 08/14/18 04:57 08/14/18 05:02 08/14/18 05:11 08/14/18 05:18 Bedside Glucose 567 *H Blood Gas Blood venous Specimen Source Arterial Blood 08/14/2018 6:00: Date Drawn 28 AM Arterial Blood VENOUS LINE Gas Puncture Site Yobani Test N/A Venous Blood pH 7.152 *L Venous Blood 19.1 L pCO2 (Temp Corrected) Venous Blood pO2 33.1 H (Temp Corrected) Venous Blood 6.5 L HCO3 Venous Blood 58.3 Oxygen Saturation Venous Blood -20.3 L Base Excess Venous Blood 13.4 Total Hemoglobin Venous Blood 58.1 Oxyhemoglobin Venous Blood 0.1 Methemoglobin Carboxyhemoglobi 0.3 n Blood Gas 37.0 Temperature Blood Gas Actual 30 Respiration Rate Blood Gas NASAL CANNULA Modality FiO2 30.0 Blood Gas OSTICK B MD Critical Value Read Back Blood Gas KB Notified Whom Blood Gas 08/14/2018 6:07: Notified Time 35 AM Urine Color COLORLESS Urine Clarity CLEAR Urine pH 6.0 Urine Specific 1.017 [place] Urine Ketones 2+ H Urine Nitrite NEGATIVE Urine Bilirubin NEGATIVE Urine NEGATIVE Urobilinogen Urine Leukocyte NEGATIVE Esterase Urine 1 Microscopic RBC Urine 1 Microscopic WBC Urine Hemoglobin 1+ H Urine Glucose 3+ H Urine Total 1+ H Protein White Blood 16.4 #H Count Red Blood Count 4.96 Hemoglobin 15.7 Hematocrit 43.8 Mean Corpuscular 88.3 Volume Mean Corpuscular 31.7 Hemoglobin Mean Corpuscular 35.8 Hemoglobin Joelle nt Red Cell 13.6 Distribution Width Platelet Count 403 # Mean Platelet 9.2 Volume Immature 1.000 H Granulocytes % Neutrophils % 68.1 Lymphocytes % 26.3 Monocytes % 4.2 Eosinophils % 0.2 Basophils % 0.2 Nucleated Red 0.0 Blood Cells % Immature 0.160 H Granulocytes # Neutrophils # 11.1 H Lymphocytes # 4.3 H Monocytes # 0.7 Eosinophils # 0.0 Basophils # 0.0 Nucleated Red 0.0 Blood Cells # Sodium Level 133 L Potassium Level 4.4 Chloride Level 100 Carbon Dioxide < 5 *L Level Anion Gap 28 H Blood Urea 24 H Nitrogen Creatinine 1.10 H Est Glomerular 56 L Filtrat Rate mL/min Glucose Level 624 *H Hemoglobin A1c 13.0 H Calcium Level 8.2 L Phosphorus Level 6.8 H Magnesium Level 1.9 Total Bilirubin 0.4 Direct Bilirubin 0.00 Indirect 0.4 Bilirubin Aspartate Amino 22 Transf (AST/SGOT ) Alanine 25 Aminotransferase (ALT/SGPT) Alkaline 159 H Phosphatase Total Protein 7.5 Albumin 3.3 Globulin 4.20 H Albumin/Globulin 0.78 Ratio POC Beta HCG, NEGATIVE Qualitative Test 08/14/18 05:20 08/14/18 06:31 08/14/18 07:50 08/14/18 08:01 Bedside Glucose 554 *H 539 *H 577 *H Blood Gas Blood venous Specimen Source Arterial Blood 08/14/2018 9:20: Date Drawn 28 AM Arterial Blood VENOUS LINE Gas Puncture Site Yobani Test N/A Venous Blood pH 7.195 *L Venous Blood 20.8 L pCO2 (Temp Corrected) Venous Blood pO2 38.2 H (Temp Corrected) Venous Blood 7.9 L HCO3 Venous Blood 69.3 Oxygen Saturation Venous Blood -18.3 L Base Excess Venous Blood 12.9 Total Hemoglobin Venous Blood 69.0 Oxyhemoglobin Venous Blood 0.2 Methemoglobin Carboxyhemoglobi 0.2 n Blood Gas 37.0 Temperature Blood Gas NASAL CANNULA Modality FiO2 28.[address] ONTIVEROS Critical Value Read Back Blood Gas Isidra Notified Whom Blood Gas 08/14/2018 9:28: Notified Time 02 AM Test 08/14/18 08:51 08/14/18 08:53 08/14/18 09:00 08/14/18 10:08 Bedside Glucose 481 *H 395 H Sodium Level 137 Potassium Level 4.0 Chloride Level 108 Carbon Dioxide < 5 *L Level Anion Gap 24 H Blood Urea 23 H Nitrogen Creatinine 0.94 Est Glomerular > 60 Filtrat Rate mL/min Glucose Level 492 *H Hemoglobin A1c 12.7 H Calcium Level 7.8 L Phosphorus Level 4.7 # Magnesium Level 1.9 Lipase 23 Ethyl Alcohol < 10.0 H Level Urine Color COLORLESS Urine Clarity CLEAR Urine pH 6.0 Urine Specific 1.016 [place] Urine Ketones 2+ H Urine Nitrite NEGATIVE Urine Bilirubin NEGATIVE Urine NEGATIVE Urobilinogen Urine Leukocyte NEGATIVE Esterase Urine 0 Microscopic RBC Urine 1 Microscopic WBC Urine Hemoglobin 1+ H Urine Glucose 3+ H Urine Total 1+ H Protein Urine Opiates NEGATIVE Screen Urine POSITIVE Barbiturates Urine NEGATIVE Amphetamines Screen Urine NEGATIVE Benzodiazepines Screen Urine Cocaine NEGATIVE Screen Urine NEGATIVE Cannabinoids Test 08/14/18 11:01 08/14/18 11:02 08/14/18 12:02 08/14/18 13:07 Bedside Glucose 344 H 288 H 301 H Sodium Level 137 Potassium Level 4.3 Chloride Level 110 Carbon Dioxide 6 *L Level Anion Gap 21 H Blood Urea 23 H Nitrogen Creatinine 0.92 Est Glomerular > 60 Filtrat Rate mL/min Glucose Level 347 H Calcium Level 7.6 L Phosphorus Level 3.5 Magnesium Level 1.9 Test 08/14/18 14:01 08/14/18 14:56 08/14/18 15:43 08/14/18 16:01 Bedside Glucose 242 H 280 H 263 H Sodium Level 138 Potassium Level 4.1 Chloride Level 114 H Carbon Dioxide 12 L Level Anion Gap 12 # Blood Urea 17 Nitrogen Creatinine 0.65 Est Glomerular > 60 Filtrat Rate mL/min Glucose Level 228 #H Calcium Level 6.8 L Phosphorus Level 2.3 #L Magnesium Level 1.7 Test 08/14/18 16:49 Bedside Glucose 251 H Medications Medication Current Medications Potassium Chloride/Sodium Chloride 1,000 ml @ 0 mls/hr Q0M IV ; Start 08/14/18 at 06:01 Potassium Chloride/Dextrose/ Sod Cl 1,000 ml @ 0 mls/hr Q0M IV ; Start 08/14/18 at 06:01 Potassium Chloride/Sodium Chloride 1,000 ml @ 0 mls/hr Q0M IV Last administered on 08/14/18at 11:45; Admin Dose 250 MLS/HR; Start 08/14/18 at 06:01 Potassium Chloride/Dextrose/ Sod Cl 1,000 ml @ 0 mls/hr Q0M IV Last administered on 08/14/18at 12:05; Admin Dose 150 MLS/HR; Start 08/14/18 at 06:01 Sodium Chloride 1,000 ml @ 0 mls/hr Q0M IV ; Start 08/14/18 at 06:01 Dextrose/Sodium Chloride 1,000 ml @ 0 mls/hr Q0M IV ; Start 08/14/18 at 06:01 Insulin Human Regular 100 unit/ Sodium Chloride 101 ml @ 8.69 mls/hr ER DKA PROTOCOL IV Last administered on 08/14/18at 07:51; Admin Dose 8.69 MLS/HR; Start 08/14/18 at 06:30 Miscellaneous Information (* Miscellaneous Pharmacy Order) HYPOGLYCEMIA TREATMENT HYPOGLYCEM PROTOCOL PRN XX .HYPOGLYCEMIA PROTOCOL; Start 08/14/18 at 06:30 Dextrose (D50w Syringe) 50 ml Q15M PRN IV .DECREASED GLUCOSE; Start 08/14/18 at 06:30 Dextrose (D50w Syringe) 25 ml Q15M PRN IV .DECREASED GLUCOSE; Start 08/14/18 at 06:30 Lidocaine (Xylocaine 1% (Mpf)) 30 ml ONCE PRN INJ iv insertion; Start 08/14/18 at 07:00 Ondansetron HCl (Zofran Inj) 4 mg Q6H PRN IV NAUSEA AND/OR VOMITING Last administered on 08/14/18at 15:31; Admin Dose 4 MG; Start 08/14/18 at 07:30 Acetaminophen (Tylenol Liquid) 650 mg Q6H PRN PO PAIN LEVEL 1-3 OR FEVER; Start 08/14/18 at 07:30 Pantoprazole (Protonix Iv) 40 mg BID@0600,1800 IV Last administered on 08/14/18at 07:57; Admin Dose 40 MG; Start 08/14/18 at 08:00 Hydromorphone HCl (Dilaudid) 0.5 mg Q4H PRN IV PAIN LEVEL 7-10 Last administered on 08/14/18at 16:03; Admin Dose 0.5 MG; Start 08/14/18 at 12:00 Magnesium Sulfate 50 ml @ 25 mls/hr ONCE ONCE IVPB ; Start 08/14/18 at 18:00; Stop 08/14/18 at 19:59 Fish Oil (Fish Oil) 2,000 mg BID PO ; Start 08/14/18 at 21:00 ROLANDO PERRY MD August 14, 2018 17:56
[2018-08-14] MEDS ORDERED: MAGNESIUM SULFATE 2 GM/50 ML 50 ML IVPB ONE (18:00)
[2018-08-14] MEDS: ACCU-CHEK XX SCH ×4 (20:00→23:00)
[2018-08-14] MEDS: FISH OIL 1,000 MG CAP PO SCH (21:00)
[2018-08-14] MEDS ORDERED: INSULIN GLARGINE [LANTus] (100 UNITS/ML) SYG SC ONE (21:30)
[2018-08-14] MEDS: D5W-0.45 NACL + KCL 20 MEQ 1,000 ML IV SCH (23:55)
[2018-08-15] VITALS (24 sets, daily range): BP systolic 110–162; BP diastolic 57–108; PULSE 80–110; RESP 13–30
[2018-08-15] MEDS: ACCU-CHEK XX SCH ×24 (01:00→23:00)
[2018-08-15] MEDS ORDERED: ACCU-CHEK XX SCH (02:00)
[2018-08-15] MEDS ORDERED: GLUCAGON 1 MG INJ IM PRN (02:00)
[2018-08-15] MEDS ORDERED: GLUCOSE GEL 15 GRAM TUBE PO PRN ×2 (02:00)
[2018-08-15] MEDS ORDERED: DEXTROSE 50% 50 ML SYRINGE IV PRN ×2 (02:00)
[2018-08-15] MEDS ORDERED: GLUCOSE GEL 15 GRAM TUBE BUCCAL PRN (02:00)
[2018-08-15] MEDS: HYDROmorphONE 0.5 MG/0.5 ML SYG IV PRN ×2 (03:45→08:17)
[2018-08-15] MEDS ORDERED: INSULIN ASPART [NOVOLOG] 3 ML PEN SC SCH (05:00)
[2018-08-15] MEDS: PANTOPRAZOLE 40 MG INJ IV SCH ×2 (06:52→20:09)
[2018-08-15] MEDS: FENOFIBRATE 145 MG TAB PO SCH (08:27)
[2018-08-15] MEDS: FISH OIL 1,000 MG CAP PO SCH ×2 (08:28→20:43)
[2018-08-15] MEDS: INSULIN HUMAN REGULAR 100 UNIT in SOD CHLORIDE 0.9% 99 ML IV SCH ×2 (08:42→20:39)
[2018-08-15] MEDS ORDERED: INSULIN GLARGINE [LANTus] (100 UNITS/ML) SYG SC ONE (09:00)
--- NOTE | 2018-08-15 09:16 | PN ---
Date/Time of Note Date/Time of Note DATE: 08/15/18 TIME: 09:08 Assessment/Plan VTE Prophylaxis Risk score (from Ns)>0 risk: 1 SCD applied (from Ns): No SCD contraindicated: low risk/ambulating Pharmacological prophylaxis: NA/contraindicated Pharm contraindication: low risk/ambulating Lines/Catheters IV Catheter Type (from Nrs): Mid Line Urinary Cath still in place: No Assessment/Plan Assessment/Plan 38 yo obese woman with insulin-dependent diabetes presents with abdominal pain and vomiting, found to be in DKA. #insulin-dependent diabetes #diabetic ketoacidosis: - Likely related to acute gastroenteritis with vomiting and abdominal pain. - Continue insulin gtt and IV fluids, NPO while still PO intolerant. - HgbA1C 13.0 - Prior to admission, patient had been stable on toujeo 100u qAM for two years. Reports she took last dose yesterday morning. Will plan to transition back to this regimen when gap closed. - Dr. Palumbo following #Hypertriglyceridemia - Will resume home statin and fenofibrate - On insulin gtt as above - Lipase negative, unlikely to have acute pancreatitis #Nausea, vomiting - Patient reports black emesis prior to admission. Hgb is 15.7 and no black stool so no strong suspicion for brisk GI bleed at this time. Will monitor closely. - She denies diarrhea. Last bowel movement 3 days ago. - Protonix 40 mg IV twice daily. - Resume diet when DKA resolves. # severe metabolic acidosis: - Secondary to DKA and GI losses. # obesity: We will check hemoglobin A 1C, lipid panel, TSH # asthma: Stable, PRN inhaler if indicated # DVT GI prophylaxis: SCDs, Protonix IV Further treatment strategy will be implemented as per the clinical course Greater than 45 minutes critical care time was spent on the care management patient. Result Diagram: 08/14/18 0518 08/15/18 0508 Subjective 24 Hr Interval Summary Free Text/Dictation She continues to have burning epigastric pain and nausea. Last episode of vomiting was 1 am. She reports it was dark brown almost black. Also had a loose very dark bowel movement this morning. She was given 15 units subQ glargine last night and started on clear liquid diet. Still on insulin gtt. Exam/Review of Systems Exam Vitals Vital Signs Date Temp Pulse Resp B/P (MAP) Pulse Ox O2 O2 Flow FiO2 Time Delivery Rate 08/15/18 86 20 141/77 95 Room Air 06:00 (98) 08/15/18 98.3 04:00 08/14/18 3.0 20:00 Intake and Output 08/14/18 08/14/18 08/15/18 1515:00 23:00 07:00 IntakeIntake Total 1072.14 ml 1656.07 ml 700 ml OutputOutput Total 1000 ml 1200 ml BalanceBalance 1072.14 ml 656.07 ml -500 ml Exam General: Patient is currently lying in bed she appears to be in mild distress and abdominal pain HEENT: Atraumatic, normocephalic. The pupils are equal, round and reactive. Extraocular motor are intact Neck: Supple with full range of motion. No rigidity or meningismus Chest: Nontender Lungs: Clear to auscultation bilaterally no crackles rales or wheezing Heart: Sinus tachycardia Abdomen: Soft, generalized tenderness to palpation, no rebound or guarding. Hy poactive bowel sounds. Extremities: Normal to inspection, no edema no cyanosis Skin: Lower extremity scab wounds from fall in the past Results Results 24hrs Laboratory Tests Test 08/14/18 10:08 08/14/18 11:01 08/14/18 11:02 08/14/18 12:02 Bedside Glucose 395 H 344 H 288 H Sodium Level 137 Potassium Level 4.3 Chloride Level 110 Carbon Dioxide Level 6 *L Anion Gap 21 H Blood Urea Nitrogen 23 H Creatinine 0.92 Est Glomerular > 60 Filtrat Rate mL/min Glucose Level 347 H Calcium Level 7.6 L Phosphorus Level 3.5 Magnesium Level 1.9 Test 08/14/18 13:07 08/14/18 14:01 08/14/18 14:56 08/14/18 15:43 Bedside Glucose 301 H 242 H 280 H Sodium Level 138 Potassium Level 4.1 Chloride Level 114 H Carbon Dioxide Level 12 L Anion Gap 12 # Blood Urea Nitrogen 17 Creatinine 0.65 Est Glomerular > 60 Filtrat Rate mL/min Glucose Level 228 #H Calcium Level 6.8 L Phosphorus Level 2.3 #L Magnesium Level 1.7 Test 08/14/18 16:01 08/14/18 16:49 08/14/18 18:09 08/14/18 18:10 Bedside Glucose 263 H 251 H 241 H Sodium Level 136 Potassium Level 4.3 Chloride Level 112 H Carbon Dioxide Level 14 L Anion Gap 10 Blood Urea Nitrogen 17 Creatinine 0.68 Est Glomerular > 60 Filtrat Rate mL/min Glucose Level 239 H Calcium Level 7.2 L Phosphorus Level 2.1 L Magnesium Level 1.8 Test 08/14/18 19:10 08/14/18 20:03 08/14/18 21:20 08/14/18 22:11 Bedside Glucose 256 H 242 H 171 138 Test 08/14/18 23:09 08/14/18 23:30 08/15/18 00:00 08/15/18 01:18 Bedside Glucose 115 145 213 Urine Color YELLOW Urine Clarity CLEAR Urine pH 6.0 Urine Specific 1.014 [place] Urine Ketones 1+ H Urine Nitrite NEGATIVE Urine Bilirubin NEGATIVE Urine Urobilinogen NEGATIVE Urine Leukocyte NEGATIVE Esterase Urine Microscopic 0 RBC Urine Microscopic 1 WBC Urine Squamous FEW Epithelial Cells Urine Hemoglobin 1+ H Urine Glucose 3+ H Urine Total Protein 2+ H Test 08/15/18 04:50 08/15/18 05:08 08/15/18 05:54 08/15/18 07:07 Bedside Glucose 338 H 312 H 375 H Sodium Level 134 L Potassium Level 5.1 Chloride Level 108 Carbon Dioxide Level 12 L Anion Gap 14 H Blood Urea Nitrogen 10 Creatinine 0.62 Est Glomerular > 60 Filtrat Rate mL/min Glucose Level 334 H Calcium Level 7.5 L Phosphorus Level 2.3 L Magnesium Level 1.8 Triglycerides Level > 1575 H Cholesterol Level 506 H LDL Cholesterol, Calculated HDL Cholesterol 38 Cholesterol/HDL 13.3 Ratio Amylase Level 48 Lipase 19 L Test 08/15/18 08:08 Bedside Glucose 293 H Medications Medication Current Medications Lidocaine (Xylocaine 1% (Mpf)) 30 ml ONCE PRN INJ iv insertion; Start 08/14/18 at 07:00 Ondansetron HCl (Zofran Inj) 4 mg Q6H PRN IV NAUSEA AND/OR VOMITING Last administered on 08/14/18at 21:42; Admin Dose 4 MG; Start 08/14/18 at 07:30 Acetaminophen (Tylenol Liquid) 650 mg Q6H PRN PO PAIN LEVEL 1-3 OR FEVER; Start 08/14/18 at 07:30 Pantoprazole (Protonix Iv) 40 mg BID@0600,1800 IV Last administered on 08/15/18at 06:52; Admin Dose 40 MG; Start 08/14/18 at 08:00 Hydromorphone HCl (Dilaudid) 0.5 mg Q4H PRN IV PAIN LEVEL 7-10 Last administered on 08/15/18at 08:17; Admin Dose 0.5 MG; Start 08/14/18 at 12:00 Fish Oil (Fish Oil) 2,000 mg BID PO ; Start 08/14/18 at 21:00 Fenofibrate (Tricor) 145 mg DAILY PO Last administered on 08/15/18at 08:27; A dmin Dose 145 MG; Start 08/15/18 at 09:00 Diagnostic Test (Pha) (Accu-Chek) 1 ea Q1H XX Last administered on 08/15/18at 08:09; Admin Dose 1 EA; Start 08/14/18 at 20:00 Insulin Human Regular 100 unit/ Sodium Chloride 100 ml @ 0 mls/hr PER PROTOCOL IV Last administered on 08/15/18at 08:42; Admin Dose 20 MLS/HR; Start 08/14/18 at 21:00 Miscellaneous Information (* Miscellaneous Pharmacy Order) Treatment of Hypoglycemia: 1.BG 51... Per protocol XX ; Start 08/14/18 at 20:00 Dextrose (D50w Syringe) 25 ml Q15M PRN IV .DECREASED GLUCOSE; Start 08/14/18 at 20:00 Dextrose (D50w Syringe) 50 ml Q15M PRN IV .DECREASED GLUCOSE; Start 08/14/18 at 20:00 Insulin Glargine (Lantus) 15 units DAILY@2000 SC ; Start 08/15/18 at 20:00 Potassium Chloride/Dextrose/ Sod Cl 1,000 ml @ 75 mls/hr [id number] IV Last ad ministered on 08/14/18at 23:55; Admin Dose 100 MLS/HR; Start 08/14/18 at 23:00 Miscellaneous Information 1 ea NOTE XX ; Start 08/15/18 at 02:00 Glucose (Glutose) 15 gm Q15M PRN PO DECREASED GLUCOSE; Start 08/15/18 at 02:00 Glucose (Glutose) 22.5 gm Q15M PRN PO DECREASED GLUCOSE; Start 08/15/18 at 0 2:00 Dextrose (D50w Syringe) 25 ml Q15M PRN IV DECREASED GLUCOSE; Start 08/15/18 at 02:00 Dextrose (D50w Syringe) 50 ml Q15M PRN IV DECREASED GLUCOSE; Start 08/15/18 at 02:00 Glucagon (Glucagen) 1 mg Q15M PRN IM DECREASED GLUCOSE; Start 08/15/18 at 02:00 Glucose (Glutose) 15 gm Q15M PRN BUCCAL DECREASED GLUCOSE; Start 08/15/18 at 02:00 VINCENT ENGLE MD August 15, 2018 09:16
[2018-08-15] MEDS ORDERED: ALBUTEROL HFA 8 GM INHALER INH PRN (09:30)
[2018-08-15] MEDS ORDERED: FENOFIBRATE 145 MG TAB PO SCH (10:00)
[2018-08-15] MEDS: AMLODIPINE 5 MG TAB PO SCH (10:00)
[2018-08-15] MEDS: D5W-0.45 NACL + KCL 20 MEQ 1,000 ML IV SCH (12:03)
[2018-08-15] MEDS: HYDROmorphONE 1 MG/ML SYG IV PRN ×3 (12:03→20:00)
--- NOTE | 2018-08-15 12:24 | PN ---
Date/Time of Note Date/Time of Note DATE: 08/15/18 TIME: 12:20 Assessment/Plan VTE Prophylaxis Risk score (from Nsg)>0 risk: 1 SCD applied (from Ns): No SCD contraindicated: other (scds) Pharmacological prophylaxis: other (scds) Lines/Catheters IV Catheter Type (from [facility]): Mid Line Urinary Cath still in place: No Assessment/Plan Hospital Course Summary Assessment and Plan: Assessment: Nausea/vomiting -With reported dark emesis prior to admission -Hgb 15 -No complaints of melena or diarrhea DKA-management per medical team DM- poorly controlled -HgbA1c 12.7 Severe metabolic acidosis Fatty liver with hepatomegaly Obesity Asthma Plan: Continue PPI twice daily Monitor for overt signs of GI bleed and H/H No plan for EGD at this time- If HGB continues to drop will consider EGD at that time- currently no overt signs of GI bleed. Patient seen in collaboration with Dr. Rondon Subjective: Course reviewed with nursing staff Patient interviewed and examined All labs, imaging and other results reviewed The patient resting in bed, c/o knee pain, requesting increase in pain medication. She denies further episodes of emesis, does c/o nausea.. No overt signs of GI bleed i.e. melena or hematochezia. Hgb today has dropped 3 points- possible 2/2 to hydration BUN on admission 24 today 10. Will continue to monitor PHYSICAL EXAMINATION: GENERAL:Alert & oriented x 3, Obese, in no acute distress SKIN: No lesions, no stigmata chronic liver disease, no evidence of bleeding diathesis EYES: Pupils equal reactive to light and accommodation, no discharge. EARS/NOSE AND THROAT: Ears normal, nose normal, oropharynx normal. NECK: Supple, no masses. CHEST: Inspection within normal limits. CARDIOVASCULAR: Heart: Regular rate and rhythm RESPIRATORY: Lungs clear to auscultation and percussion, no wheezing, no rubs GASTROINTESTINAL AND LIVER: Abdomen: Soft, non tenderness, non-distended, no hernias, no masses, no organomegaly, no ascites, no guarding, no rebound tenderness, normoactive bowel sounds. Rectal: Deferred. Result Diagram: 08/15/18 0508 08/15/18 0508 Results 24hrs Laboratory Tests Test 08/14/18 13:07 08/14/18 14:01 08/14/18 14:56 08/14/18 15:43 Bedside Glucose 301 H 242 H 280 H Sodium Level 138 Potassium Level 4.1 Chloride Level 114 H Carbon Dioxide Level 12 L Anion Gap 12 # Blood Urea Nitrogen 17 Creatinine 0.65 Est Glomerular > 60 Filtrat Rate mL/min Glucose Level 228 #H Calcium Level 6.8 L Phosphorus Level 2.3 #L Magnesium Level 1.7 Test 08/14/18 16:01 08/14/18 16:49 08/14/18 18:09 08/14/18 18:10 Bedside Glucose 263 H 251 H 241 H Sodium Level 136 Potassium Level 4.3 Chloride Level 112 H Carbon Dioxide Level 14 L Anion Gap 10 Blood Urea Nitrogen 17 Creatinine 0.68 Est Glomerular > 60 Filtrat Rate mL/min Glucose Level 239 H Calcium Level 7.2 L Phosphorus Level 2.1 L Magnesium Level 1.8 Test 08/14/18 19:10 08/14/18 20:03 08/14/18 21:20 08/14/18 22:11 Bedside Glucose 256 H 242 H 171 138 Test 08/14/18 23:09 08/14/18 23:30 08/15/18 00:00 08/15/18 01:18 Bedside Glucose 115 145 213 Urine Color YELLOW Urine Clarity CLEAR Urine pH 6.0 Urine Specific 1.014 [place] Urine Ketones 1+ H Urine Nitrite NEGATIVE Urine Bilirubin NEGATIVE Urine Urobilinogen NEGATIVE Urine Leukocyte NEGATIVE Esterase Urine Microscopic 0 RBC Urine Microscopic 1 WBC Urine Squamous FEW Epithelial Cells Urine Hemoglobin 1+ H Urine Glucose 3+ H Urine Total Protein 2+ H Test 08/15/18 04:50 08/15/18 05:08 08/15/18 05:54 08/15/18 07:07 Bedside Glucose 338 H 312 H 375 H White Blood Count 7.3 # Red Blood Count 4.07 L Hemoglobin 12.7 Hematocrit 36.0 L Mean Corpuscular 88.5 Volume Mean Corpuscular 31.2 Hemoglobin Mean Corpuscular 35.3 Hemoglobin Concent Red Cell 13.9 Distribution Width Platelet Count 224 # Mean Platelet Volume 9.4 Immature 0.400 Granulocytes % Neutrophils % 61.8 Lymphocytes % 31.2 Monocytes % 5.7 Eosinophils % 0.8 Basophils % 0.1 Nucleated Red Blood 0.0 Cells % Immature 0.030 Granulocytes # Neutrophils # 4.5 Lymphocytes # 2.3 Monocytes # 0.4 Eosinophils # 0.1 Basophils # 0.0 Nucleated Red Blood 0.0 Cells # Sodium Level 134 L Potassium Level 5.1 Chloride Level 108 Carbon Dioxide Level 12 L Anion Gap 14 H Blood Urea Nitrogen 10 Creatinine 0.62 Est Glomerular > 60 Filtrat Rate mL/min Glucose Level 334 H Calcium Level 7.5 L Phosphorus Level 2.3 L Magnesium Level 1.8 Triglycerides Level > 1575 H Cholesterol Level 506 H LDL Cholesterol, Calculated HDL Cholesterol 38 Cholesterol/HDL 13.3 Ratio Amylase Level 48 Lipase 19 L Test 08/15/18 07:10 08/15/18 08:08 08/15/18 09:10 08/15/18 10:10 Bedside Glucose 323 H 293 H 229 H 201 Test 08/15/18 11:06 08/15/18 12:02 Bedside Glucose 172 129 Exam/Review of Systems Exam Vitals Vital Signs Date Temp Pulse Resp B/P (MAP) Pulse Ox O2 O2 Flow FiO2 Time Delivery Rate 08/15/18 91 20 139/82 80 Room Air 11:00 (101) 08/15/18 98.2 08:00 08/15/18 3.0 08:00 Intake and Output 08/14/18 08/14/18 08/15/18 1515:00 23:00 07:00 IntakeIntake Total 1072.14 ml 1656.07 ml 800 ml OutputOutput Total 1000 ml 1200 ml BalanceBalance 1072.14 ml 656.07 ml -400 ml Results Results 24hrs Laboratory Tests Test 08/14/18 13:07 08/14/18 14:01 08/14/18 14:56 08/14/18 15:43 Bedside Glucose 301 H 242 H 280 H Sodium Level 138 Potassium Level 4.1 Chloride Level 114 H Carbon Dioxide Level 12 L Anion Gap 12 # Blood Urea Nitrogen 17 Creatinine 0.65 Est Glomerular > 60 Filtrat Rate mL/min Glucose Level 228 #H Calcium Level 6.8 L Phosphorus Level 2.3 #L Magnesium Level 1.7 Test 08/14/18 16:01 08/14/18 16:49 08/14/18 18:09 08/14/18 18:10 Bedside Glucose 263 H 251 H 241 H Sodium Level 136 Potassium Level 4.3 Chloride Level 112 H Carbon Dioxide Level 14 L Anion Gap 10 Blood Urea Nitrogen 17 Creatinine 0.68 Est Glomerular > 60 Filtrat Rate mL/min Glucose Level 239 H Calcium Level 7.2 L Phosphorus Level 2.1 L Magnesium Level 1.8 Test 08/14/18 19:10 08/14/18 20:03 08/14/18 21:20 08/14/18 22:11 Bedside Glucose 256 H 242 H 171 138 Test 08/14/18 23:09 08/14/18 23:30 08/15/18 00:00 08/15/18 01:18 Bedside Glucose 115 145 213 Urine Color YELLOW Urine Clarity CLEAR Urine pH 6.0 Urine Specific 1.014 [place] Urine Ketones 1+ H Urine Nitrite NEGATIVE Urine Bilirubin NEGATIVE Urine Urobilinogen NEGATIVE Urine Leukocyte NEGATIVE Esterase Urine Microscopic 0 RBC Urine Microscopic 1 WBC Urine Squamous FEW Epithelial Cells Urine Hemoglobin 1+ H Urine Glucose 3+ H Urine Total Protein 2+ H Test 08/15/18 04:50 08/15/18 05:08 08/15/18 05:54 08/15/18 07:07 Bedside Glucose 338 H 312 H 375 H White Blood Count 7.3 # Red Blood Count 4.07 L Hemoglobin 12.7 Hematocrit 36.0 L Mean Corpuscular 88.5 Volume Mean Corpuscular 31.2 Hemoglobin Mean Corpuscular 35.3 Hemoglobin Concent Red Cell 13.9 Distribution Width Platelet Count 224 # Mean Platelet Volume 9.4 Immature 0.400 Granulocytes % Neutrophils % 61.8 Lymphocytes % 31.2 Monocytes % 5.7 Eosinophils % 0.8 Basophils % 0.1 Nucleated Red Blood 0.0 Cells % Immature 0.030 Granulocytes # Neutrophils # 4.5 Lymphocytes # 2.3 Monocytes # 0.4 Eosinophils # 0.1 Basophils # 0.0 Nucleated Red Blood 0.0 Cells # Sodium Level 134 L Potassium Level 5.1 Chloride Level 108 Carbon Dioxide Level 12 L Anion Gap 14 H Blood Urea Nitrogen 10 Creatinine 0.62 Est Glomerular > 60 Filtrat Rate mL/min Glucose Level 334 H Calcium Level 7.5 L Phosphorus Level 2.3 L Magnesium Level 1.8 Triglycerides Level > 1575 H Cholesterol Level 506 H LDL Cholesterol, Calculated HDL Cholesterol 38 Cholesterol/HDL 13.3 Ratio Amylase Level 48 Lipase 19 L Test 08/15/18 07:10 08/15/18 08:08 08/15/18 09:10 08/15/18 10:10 Bedside Glucose 323 H 293 H 229 H 201 Test 08/15/18 11:06 08/15/18 12:02 Bedside Glucose 172 129 Medications Medication Current Medications Lidocaine (Xylocaine 1% (Mpf)) 30 ml ONCE PRN INJ iv insertion; Start 08/14/18 at 07:00 Ondansetron HCl (Zofran Inj) 4 mg Q6H PRN IV NAUSEA AND/OR VOMITING Last administered on 08/14/18at 21:42; Admin Dose 4 MG; Start 08/14/18 at 07:30 Acetaminophen (Tylenol Liquid) 650 mg Q6H PRN PO PAIN LEVEL 1-3 OR FEVER; Start 08/14/18 at 07:30 Pantoprazole (Protonix Iv) 40 mg BID@0600,1800 IV Last administered on 08/15/18at 06:52; Admin Dose 40 MG; Start 08/14/18 at 08:00 Fish Oil (Fish Oil) 2,000 mg BID PO ; Start 08/14/18 at 21:00 Fenofibrate (Tricor) 145 mg DAILY PO Last administered on 08/15/18at 08:27; Admin Dose 145 MG; Start 08/15/18 at 09:00 Diagnostic Test (Pha) (Accu-Chek) 1 ea Q1H XX Last administered on 08/15/18at 12:02; Admin Dose 1 EA; Start 08/14/18 at 20:00 Insulin Human Regular 100 unit/ Sodium Chloride 100 ml @ 0 mls/hr PER PROTOCOL IV Last administered on 08/15/18at 08:42; Admin Dose 20 MLS/HR; Start 08/14/18 at 21:00 Miscellaneous Information (* Miscellaneous Pharmacy Order) Treatment of Hypoglycemia: 1.BG 51... Per protocol XX ; Start 08/14/18 at 20:00 Dextrose (D50w Syringe) 25 ml Q15M PRN IV .DECREASED GLUCOSE; Start 08/14/18 at 20:00 Dextrose (D50w Syringe) 50 ml Q15M PRN IV .DECREASED GLUCOSE; Start 08/14/18 at 20:00 Insulin Glargine (Lantus) 15 units DAILY@2000 SC ; Start 08/15/18 at 20:00 Potassium Chloride/Dextrose/ Sod Cl 1,000 ml @ 75 mls/hr [id number] IV Last administered on 08/15/18at 12:03; Admin Dose 75 MLS/HR; Start 08/14/18 at 23:00 Miscellaneous Information 1 ea NOTE XX ; Start 08/15/18 at 02:00 Glucose (Glutose) 15 gm Q15M PRN PO DECREASED GLUCOSE; Start 08/15/18 at 02:00 Glucose (Glutose) 22.5 gm Q15M PRN PO DECREASED GLUCOSE; Start 08/15/18 at 02:00 Dextrose (D50w Syringe) 25 ml Q15M PRN IV DECREASED GLUCOSE; Start 08/15/18 at 02:00 Dextrose (D50w Syringe) 50 ml Q15M PRN IV DECREASED GLUCOSE; Start 08/15/18 at 02:00 Glucagon (Glucagen) 1 mg Q15M PRN IM DECREASED GLUCOSE; Start 08/15/18 at 02:00 Glucose (Glutose) 15 gm Q15M PRN BUCCAL DECREASED GLUCOSE; Start 08/15/18 at 02:00 Albuterol (Ventolin Hfa) 2 puff Q4H RESP THERAPY PRN INH wheezing; Start 08/15/18 at 09:30 Amlodipine Besylate (Norvasc) 5 mg DAILY PO ; Start 08/15/18 at 10:00 Atorvastatin Calcium (Lipitor) 80 mg QHS PO ; Start 08/15/18 at 21:00 Montelukast Sodium (Singulair) 10 mg QHS PO ; Start 08/15/18 at 21:00 Hydromorphone HCl (Dilaudid) 1 mg Q4H PRN IV PAIN LEVEL 7-10 Last administered on 08/15/18at 12:03; Admin Dose 1 MG; Start 08/15/18 at 12:00 WILLARD NICOLE August 15, 2018 12:24
--- NOTE | 2018-08-15 13:14 | CONS ---
Assessment/Plan Assessment/Plan Problems: (1) DKA (diabetic ketoacidosis) Onset Date: ~ 08/14/2018 Status: Resolved Comment: DKA is resolved. C-peptide's are pending but for now continue with the insulin drip and slowly bring on other medications Qualifiers: Diabetes mellitus type: type 1 Diabetes mellitus complication detail: without coma Qualified Codes: E10.10 - Type 1 diabetes mellitus with ketoacidosis without coma (2) Type 2 diabetes mellitus Status: Chronic Comment: Patient has significant insulin resistance. He had been on metformin as an outpatient which was discontinued because she was on insulin. We have the use of the metformin will give us a little bit more space in terms of the degree of insulin resistance and our options for treating her. Would not give her a DPP for drug or GLP-1 drug given the history of pancreatitis. In addition part of her resistance is aggravated by the severe triglyceride and cholesterol disturbance which are now under treatment. Qualifiers: Diabetes mellitus long-term insulin use: with buttermaker helper use Diabetes mellitus complication status: without complication Qualified Codes: E11.9 - Type 2 diabetes mellitus without complications; Z79.4 - terminal supervisor (current) use of insulin (3) Abdominal pain Status: Acute Comment: As per gastroenterology (4) Hypertriglyceridemia Status: Chronic Comment: On aggressive treatment now (5) Migraine equivalent syndrome Status: Chronic Comment: Noted. Consultation Date/Type/Reason Admit Date/Time August 14, 2018 at 06:21 Initial Consult Date 08/14/18 Type of Consult Endocrine Reason for Consultation Diabetes mellitus type 2 presenting with DKA. Unclear level of beta cell residual. In addition severe hypertriglyceridemia with hyperlipidemia Requesting Provider: MERNA WALTERS Date/Time of Note DATE: 08/15/18 TIME: 13:10 24 HR Interval Summary Free Text/Dictation Patient reports she is feeling better than she was yesterday and definitely better when she presented to our emergency room. Constitutional: no complaints (Fevers chills or sweats) Detailed Summary Respiratory: no complaints Cardiovascular: no complaints Gastrointestinal: pain (Abdominal pain is significantly reduced) Exam/Review of Systems Exam Vitals Vital Signs Date Temp Pulse Resp B/P (MAP) Pulse Ox O2 O2 Flow FiO2 Time Delivery Rate 08/15/18 98.3 94 19 157/92 88 Room Air 12:00 (113) 08/15/18 3.0 08:00 Intake and Output 08/14/18 08/14/18 08/15/18 1515:00 23:00 07:00 IntakeIntake Total 1072.14 ml 1656.07 ml 800 ml OutputOutput Total 1000 ml 1200 ml BalanceBalance 1072.14 ml 656.07 ml -400 ml Constitutional: alert, oriented Respiratory: clear to auscultation, normal air movement Cardiovascular: regular rate and rhythm, nl pulses Gastrointestinal: soft, nl liver, spleen, non-tender Results Result Diagram: 08/15/18 0508 08/15/18 0508 Results 24hrs Laboratory Tests Test 08/14/18 14:01 08/14/18 14:56 08/14/18 15:43 08/14/18 16:01 Bedside Glucose 242 H 280 H 263 H Sodium Level 138 Potassium Level 4.1 Chloride Level 114 H Carbon Dioxide Level 12 L Anion Gap 12 # Blood Urea Nitrogen 17 Creatinine 0.65 Est Glomerular > 60 Filtrat Rate mL/min Glucose Level 228 #H Calcium Level 6.8 L Phosphorus Level 2.3 #L Magnesium Level 1.7 Test 08/14/18 16:49 08/14/18 18:09 08/14/18 18:10 08/14/18 19:10 Bedside Glucose 251 H 241 H 256 H Sodium Level 136 Potassium Level 4.3 Chloride Level 112 H Carbon Dioxide Level 14 L Anion Gap 10 Blood Urea Nitrogen 17 Creatinine 0.68 Est Glomerular > 60 Filtrat Rate mL/min Glucose Level 239 H Calcium Level 7.2 L Phosphorus Level 2.1 L Magnesium Level 1.8 Test 08/14/18 20:03 08/14/18 21:20 08/14/18 22:11 08/14/18 23:09 Bedside Glucose 242 H 171 138 115 Test 08/14/18 23:30 08/15/18 00:00 08/15/18 01:18 08/15/18 04:50 Urine Color YELLOW Urine Clarity CLEAR Urine pH 6.0 Urine Specific 1.014 [place] Urine Ketones 1+ H Urine Nitrite NEGATIVE Urine Bilirubin NEGATIVE Urine Urobilinogen NEGATIVE Urine Leukocyte NEGATIVE Esterase Urine Microscopic 0 RBC Urine Microscopic 1 WBC Urine Squamous FEW Epithelial Cells Urine Hemoglobin 1+ H Urine Glucose 3+ H Urine Total Protein 2+ H Bedside Glucose 145 213 338 H Test 08/15/18 05:08 08/15/18 05:54 08/15/18 07:07 08/15/18 07:10 White Blood Count 7.3 # Red Blood Count 4.07 L Hemoglobin 12.7 Hematocrit 36.0 L Mean Corpuscular 88.5 Volume Mean Corpuscular 31.2 Hemoglobin Mean Corpuscular 35.3 Hemoglobin Concent Red Cell 13.9 Distribution Width Platelet Count 224 # Mean Platelet Volume 9.4 Immature 0.400 Granulocytes % Neutrophils % 61.8 Lymphocytes % 31.2 Monocytes % 5.7 Eosinophils % 0.8 Basophils % 0.1 Nucleated Red Blood 0.0 Cells % Immature 0.030 Granulocytes # Neutrophils # 4.5 Lymphocytes # 2.3 Monocytes # 0.4 Eosinophils # 0.1 Basophils # 0.0 Nucleated Red Blood 0.0 Cells # Sodium Level 134 L Potassium Level 5.1 Chloride Level 108 Carbon Dioxide Level 12 L Anion Gap 14 H Blood Urea Nitrogen 10 Creatinine 0.62 Est Glomerular > 60 Filtrat Rate mL/min Glucose Level 334 H Calcium Level 7.5 L Phosphorus Level 2.3 L Magnesium Level 1.8 Triglycerides Level > 1575 H Cholesterol Level 506 H LDL Cholesterol, Calculated HDL Cholesterol 38 Cholesterol/HDL 13.3 Ratio Amylase Level 48 Lipase 19 L Bedside Glucose 312 H 375 H 323 H Test 08/15/18 08:08 08/15/18 09:10 08/15/18 10:10 08/15/18 11:06 Bedside Glucose 293 H 229 H 201 172 Test 08/15/18 12:02 Bedside Glucose 129 Medications Medication Current Medications Lidocaine (Xylocaine 1% (Mpf)) 30 ml ONCE PRN INJ iv insertion; Start 08/14/18 at 07:00 Ondansetron HCl (Zofran Inj) 4 mg Q6H PRN IV NAUSEA AND/OR VOMITING Last administered on 08/14/18at 21:42; Admin Dose 4 MG; Start 08/14/18 at 07:30 Acetaminophen (Tylenol Liquid) 650 mg Q6H PRN PO PAIN LEVEL 1-3 OR FEVER; Start 08/14/18 at 07:30 Pantoprazole (Protonix Iv) 40 mg BID@0600,1800 IV Last administered on 08/15at 06:52; Admin Dose 40 MG; Start 08/14/18 at 08:00 Fish Oil (Fish Oil) 2,000 mg BID PO ; Start 08/14/18 at 21:00 Fenofibrate (Tricor) 145 mg DAILY PO Last administered on 08/15/18at 08:27; Admin Dose 145 MG; Start 08/15/18 at 09:00 Diagnostic Test (Pha) (Accu-Chek) 1 ea Q1H XX Last administered on 08/15/18at 12:02; Admin Dose 1 EA; Start 08/14/18 at 20:00 Insulin Human Regular 100 unit/ Sodium Chloride 100 ml @ 0 mls/hr PER PROTOCOL IV Last administered on 08/15/18at 08:42; Admin Dose 20 MLS/HR; Start 08/14/18 at 21:00 Miscellaneous Information (* Miscellaneous Pharmacy Order) Treatment of Hypoglycemia: 1.BG 51... Per protocol XX ; Start 08/14/18 at 20:00 Dextrose (D50w Syringe) 25 ml Q15M PRN IV .DECREASED GLUCOSE; Start 08/14/18 at 20:00 Dextrose (D50w Syringe) 50 ml Q15M PRN IV .DECREASED GLUCOSE; Start 08/14/18 at 20:00 Insulin Glargine (Lantus) 15 units DAILY@2000 SC ; Start 08/15/18 at 20:00 Potassium Chloride/Dextrose/ Sod Cl 1,000 ml @ 75 mls/hr [id number] IV Last administered on 08/15/18at 12:03; Admin Dose 75 MLS/HR; Start 08/14/18 at 23:00 Miscellaneous Information 1 ea NOTE XX ; Start 08/15/18 at 02:00 Glucose (Glutose) 15 gm Q15M PRN PO DECREASED GLUCOSE; Start 08/15/18 at 02:00 Glucose (Glutose) 22.5 gm Q15M PRN PO DECREASED GLUCOSE; Start 08/15/18 at 02:00 Dextrose (D50w Syringe) 25 ml Q15M PRN IV DECREASED GLUCOSE; Start 08/15/18 at 02:00 Dextrose (D50w Syringe) 50 ml Q15M PRN IV DECREASED GLUCOSE; Start 08/15/18 at 02:00 Glucagon (Glucagen) 1 mg Q15M PRN IM DECREASED GLUCOSE; Start 08/15/18 at 02:00 Glucose (Glutose) 15 gm Q15M PRN BUCCAL DECREASED GLUCOSE; Start 08/15/18 at 02:00 Albuterol (Ventolin Hfa) 2 puff Q4H RESP THERAPY PRN INH wheezing; Start 08/15/18 at 09:30 Amlodipine Besylate (Norvasc) 5 mg DAILY PO ; Start 08/15/18 at 10:00 Atorvastatin Calcium (Lipitor) 80 mg QHS PO ; Start 08/15/18 at 21:00 Montelukast Sodium (Singulair) 10 mg QHS PO ; Start 08/15/18 at 21:00 Hydromorphone HCl (Dilaudid) 1 mg Q4H PRN IV PAIN LEVEL 7-10 Last administered on 08/15/18at 12:03; Admin Dose 1 MG; Start 08/15/18 at 12:00 ROLANDO PERRY MD August 15, 2018 13:14
[2018-08-15] MEDS: SUCRALFATE (100 MG/ML) 10ML CUP PO SCH ×2 (17:00→20:42)
[2018-08-15] MEDS: metFORMIN 500 MG TAB PO SCH (17:41)
[2018-08-15] MEDS: ONDANSETRON 4 MG INJ IV PRN (19:18)
[2018-08-15] MEDS ORDERED: INSULIN GLARGINE [LANTus] (100 UNITS/ML) SYG SC SCH ×2 (20:00)
[2018-08-15] MEDS: ATORVASTATIN 80 MG TAB PO SCH (20:43)
[2018-08-15] MEDS: MONTELUKAST 10 MG TAB PO SCH (20:43)
[2018-08-16] VITALS (25 sets, daily range): BP systolic 90–178; BP diastolic 48–113; PULSE 89–118; RESP 12–29
[2018-08-16] MEDS: HYDROmorphONE 1 MG/ML SYG IV PRN ×6 (00:15→20:31)
[2018-08-16] MEDS: ACCU-CHEK XX SCH ×18 (01:00→17:00)
[2018-08-16] MEDS: D5W-0.45 NACL + KCL 20 MEQ 1,000 ML IV SCH ×2 (02:13→08:41)
[2018-08-16] MEDS ORDERED: LISINOPRIL 10 MG TAB PO ONE (05:30)
[2018-08-16] MEDS ORDERED: LISINOPRIL 5 MG TAB PO ONE (05:30)
[2018-08-16] MEDS: PANTOPRAZOLE 40 MG INJ IV SCH (06:12)
[2018-08-16] MEDS: SUCRALFATE (100 MG/ML) 10ML CUP PO SCH ×4 (08:39→20:35)
[2018-08-16] MEDS: FENOFIBRATE 145 MG TAB PO SCH (08:40)
[2018-08-16] MEDS: metFORMIN 500 MG TAB PO SCH ×2 (08:40→18:07)
[2018-08-16] MEDS: FISH OIL 1,000 MG CAP PO SCH ×3 (08:40→20:53)
[2018-08-16] MEDS: AMLODIPINE 5 MG TAB PO SCH (08:40)
[2018-08-16] MEDS: INSULIN HUMAN REGULAR 100 UNIT in SOD CHLORIDE 0.9% 99 ML IV SCH (09:08)
--- NOTE | 2018-08-16 09:20 | PN ---
Date/Time of Note Date/Time of Note DATE: 08/16/18 TIME: 09:13 Assessment/Plan VTE Prophylaxis Risk score (from Ns)>0 risk: 2 SCD applied (from Ns): No SCD contraindicated: low risk/ambulating Pharmacological prophylaxis: NA/contraindicated Pharm contraindication: low risk/ambulating Lines/Catheters IV Catheter Type (from Nrs): Mid Line Urinary Cath still in place: No Assessment/Plan Assessment/Plan 38 yo obese woman with insulin-dependent diabetes presents with abdominal pain and vomiting, found to be in DKA. #insulin-dependent diabetes #diabetic ketoacidosis: - Likely related to acute gastroenteritis with vomiting and abdominal pain. - Insulin per endocrine consult. - HgbA1C 13.0 - Prior to admission, patient had been stable on toujeo 100u qAM for two years. Reports she took last dose yesterday morning. Will plan to transition back to this regimen - Dr. Palumbo following #Hypertriglyceridemia - Will resume home statin and fenofibrate - On insulin gtt as above - Lipase negative, unlikely to have acute pancreatitis - Will continue to trend. #Nausea, vomiting - Patient reports black emesis prior to admission. Hgb is 15.7 and no black stool so no strong suspicion for brisk GI bleed at this time. Will monitor closely. - Protonix 40 mg IV twice daily. - Now resolved. - Continues to have burning pain when swallowing. If this persists will consider EGD. # severe metabolic acidosis: - Secondary to DKA and GI losses. # obesity: We will check hemoglobin A 1C, lipid panel, TSH # asthma: Stable, PRN inhaler if indicated # DVT GI prophylaxis: SCDs, Protonix IV Greater than 45 minutes critical care time was spent on the care management patient. Result Diagram: 08/15/18 0508 08/15/18 0508 Subjective 24 Hr Interval Summary Free Text/Dictation No acute overnight events. No vomiting, no bowel movements since last night. Exam/Review of Systems Exam Vitals Vital Signs Date Temp Pulse Resp B/P (MAP) Pulse Ox O2 O2 Flow FiO2 Time Delivery Rate 08/16/18 91 29 121/70 92 Room Air 06:00 (87) 08/16/18 98.9 05:00 08/15/18 3.0 12:00 Intake and Output 08/15/18 08/15/18 08/16/18 1515:00 23:00 07:00 IntakeIntake Total 607 ml 869 ml 541 ml OutputOutput Total 1000 ml 900 ml BalanceBalance 607 ml -131 ml -359 ml Exam General: Obese woman sitting up eating breakfast. HEENT: Atraumatic, normocephalic. The pupils are equal, round and reactive. Extraocular motor are intact Neck: Supple with full range of motion. No rigidity or meningismus Chest: Nontender Lungs: Clear to auscultation bilaterally no crackles rales or wheezing Heart: Sinus tachycardia Abdomen: Soft, generalized tenderness to palpation, no rebound or guarding. Hypoactive bowel sounds. Extremities: Normal to inspection, no edema no cyanosis Skin: Lower extremity scab wounds from fall in the past Results Results 24hrs Laboratory Tests Test 08/15/18 10:10 08/15/18 11:06 08/15/18 12:02 08/15/18 14:00 Bedside Glucose 201 172 129 111 Test 08/15/18 16:01 08/15/18 17:45 08/15/18 19:52 08/15/18 22:00 Bedside Glucose 143 180 273 H 219 Test 08/16/18 00:22 08/16/18 02:11 08/16/18 04:03 08/16/18 06:18 Bedside Glucose 134 119 169 201 Test 08/16/18 08:29 Bedside Glucose 261 H Medications Medication Current Medications Lidocaine (Xylocaine 1% (Mpf)) 30 ml ONCE PRN INJ iv insertion; Start 08/14/18 at 07:00 Ondansetron HCl (Zofran Inj) 4 mg Q6H PRN IV NAUSEA AND/OR VOMITING Last admi nistered on 08/15/18at 19:18; Admin Dose 4 MG; Start 08/14/18 at 07:30 Acetaminophen (Tylenol Liquid) 650 mg Q6H PRN PO PAIN LEVEL 1-3 OR FEVER; Start 08/14/18 at 07:30 Fish Oil (Fish Oil) 2,000 mg BID PO ; Start 08/14/18 at 21:00 Fenofibrate (Tricor) 145 mg DAILY PO Last administered on 08/16/18at 08:40; Admin Dose 145 MG; Start 08/15/18 at 09:00 Diagnostic Test (Pha) (Accu-Chek) 1 ea Q1H XX Last administered on 08/16/18at 07:37; Admin Dose 1 EA; Start 08/14/18 at 20:00 Insulin Human Regular 100 unit/ Sodium Chloride 100 ml @ 0.2 mls/hr PER PROTOCOL IV Last administered on 08/16/18at 09:08; Admin Dose 5 MLS/HR; Start 08/14/18 at 21:00 Miscellaneous Information (* Miscellaneous Pharmacy Order) Treatment of Hypoglycemia: 1.BG 51... Per protocol XX ; Start 08/14/18 at 20:00 Dextrose (D50w Syringe) 25 ml Q15M PRN IV .DECREASED GLUCOSE; Start 08/14/18 at 20:00 Dextrose (D50w Syringe) 50 ml Q15M PRN IV .DECREASED GLUCOSE; Start 08/14/18 at 20:00 Potassium Chloride/Dextrose/ Sod Cl 1,000 ml @ 75 mls/hr [id number] IV Last administered on 08/16/18at 08:41; Admin Dose 75 MLS/HR; Start 08/14/18 at 23:00 Miscellaneous Information 1 ea NOTE XX ; Start 08/15/18 at 02:00 Glucose (Glutose) 15 gm Q15M PRN PO DECREASED GLUCOSE; Start 08/15/18 at 02:00 Glucose (Glutose) 22.5 gm Q15M PRN PO DECREASED GLUCOSE; Start 08/15/18 at 02:00 Dextrose (D50w Syringe) 25 ml Q15M PRN IV DECREASED GLUCOSE; Start 08/15/18 at 02:00 Dextrose (D50w Syringe) 50 ml Q15M PRN IV DECREASED GLUCOSE; Start 08/15/18 at 02:00 Glucagon (Glucagen) 1 mg Q15M PRN IM DECREASED GLUCOSE; Start 08/15/18 at 02:00 Glucose (Glutose) 15 gm Q15M PRN BUCCAL DECREASED GLUCOSE; Start 08/15/18 at 02:00 Albuterol (Ventolin Hfa) 2 puff Q4H RESP THERAPY PRN INH wheezing; Start 08/15/18 at 09:30 Amlodipine Besylate (Norvasc) 5 mg DAILY PO Last administered on 08/16/18at 08:40; Admin Dose 5 MG; Start 08/15/18 at 10:00 Atorvastatin Calcium (Lipitor) 80 mg QHS PO Last administered on 08/15/18 20:43; Admin Dose 80 MG; Start 08/15/18 at 21:00 Montelukast Sodium (Singulair) 10 mg QHS PO Last administered on 08/15/18 20:43; Admin Dose 10 MG; Start 08/15/18 at 21:00 Hydromorphone HCl (Dilaudid) 1 mg Q4H PRN IV PAIN LEVEL 7-10 Last administered on 08/16/18 08:19; Admin Dose 1 MG; Start 08/15/18 at 12:00 Insulin Glargine (Lantus) 50 units DAILY@2000 SC Last administered on 08/15/18 20:01; Admin Dose 50 UNITS; Start 08/15/18 at 20:00 Metformin HCl (Glucophage) 500 mg BID WITH MEALS PO Last administered on 08/16/18 08:40; Admin Dose 500 MG; Start 08/15/18 at 17:35 Sucralfate (Carafate Susp) 1 gm QID PO Last administered on 08/16/18 08:39; Admin Dose 1 GM; Start 08/15/18 at 17:00 Lisinopril (Zestril) 10 mg DAILY PO ; Start 08/17/18 at 09:00 Pantoprazole (Protonix Tab) 40 mg BID@0600,1800 PO ; Start 08/16/18 at 18:00 VINCENT ENGLE MD August 16, 2018 09:20
--- NOTE | 2018-08-16 12:22 | PN ---
Date/Time of Note Date/Time of Note DATE: 08/16/18 TIME: 12: Assessment/Plan VTE Prophylaxis Risk score (from Nsg)>0 risk: 0 SCD applied (from Nsg): No SCD contraindicated: other (scds) Pharmacological prophylaxis: other (scds) Lines/Catheters IV Catheter Type (from Nrs): Peripheral IV Urinary Cath still in place: No Assessment/Plan Hospital Course Summary Assessment and Plan: Assessment: Epigastric pain Rule out Tiffany esophagitis versus PUD versus other Nausea/vomiting -With reported dark emesis prior to admission -Hgb 15 -No complaints of melena or diarrhea DKA-management per medical team-resolved DM- poorly controlled -HgbA1c 12.7 Severe metabolic acidosis Fatty liver with hepatomegaly Obesity Asthma History of LAP-BAND 2003 status post removal 2013 Plan: Despite being on PPI twice daily patient continues to complain of epigastric pain with some dysphasia. N.p.o. after midnight-EGD tomorrow. Patient seen in collaboration with Dr. Rondon Subjective: Course reviewed with nursing staff Patient interviewed and examined All labs, imaging and other results reviewed No overt signs of GI bleed. Patient continues to complain of epigastric pain with occasional dysphasia Discussed plan for EGD I reviewed risk/benefits of sedation and procedure patient verbalized understanding is agreeable. PHYSICAL EXAMINATION: GENERAL:Alert & oriented x 3, Obese, in no acute distress SKIN: No lesions, no stigmata chronic liver disease, no evidence of bleeding diathesis EYES: Pupils equal reactive to light and accommodation, no discharge. EARS/NOSE AND THROAT: Ears normal, nose normal, oropharynx normal. NECK: Supple, no masses. CHEST: Inspection within normal limits. CARDIOVASCULAR: Heart: Regular rate and rhythm RESPIRATORY: Lungs clear to auscultation and percussion, no wheezing, no rubs GASTROINTESTINAL AND LIVER: Abdomen: Soft, non tenderness, non-distended, no hernias, no masses, no organomegaly, no ascites, no guarding, no rebound t enderness, normoactive bowel sounds. Rectal: Deferred. Result Diagram: 08/16/18 0909 08/16/18 0909 Results 24hrs Laboratory Tests Test 08/15/18 14:00 08/15/18 16:01 08/15/18 17:45 08/15/18 19:52 Bedside Glucose 111 143 180 273 H Test 08/15/18 22:00 08/16/18 00:22 08/16/18 02:11 08/16/18 04:03 Bedside Glucose 219 134 119 169 Test 08/16/18 06:18 08/16/18 08:29 08/16/18 09:09 08/16/18 09:19 Bedside Glucose 201 261 H 273 H White Blood Count 5.3 # Red Blood Count 4.32 Hemoglobin 13.0 Hematocrit 36.1 L Mean Corpuscular 83.6 Volume Mean Corpuscular 30.1 Hemoglobin Mean Corpuscular 36.0 Hemoglobin Concent Red Cell 13.0 Distribution Width Platelet Count 206 Mean Platelet Volume 9.4 Immature 0.600 H Granulocytes % Neutrophils % 55.3 Lymphocytes % 36.2 Monocytes % 6.4 Eosinophils % 1.3 Basophils % 0.2 Nucleated Red Blood 0.0 Cells % Immature 0.030 Granulocytes # Neutrophils # 2.9 Lymphocytes # 1.9 Monocytes # 0.3 Eosinophils # 0.1 Basophils # 0.0 Nucleated Red Blood 0.0 Cells # Sodium Level 133 L Potassium Level 3.6 Chloride Level 108 Carbon Dioxide Level 16 L Anion Gap 9 # Blood Urea Nitrogen 5 L Creatinine 0.37 L Est Glomerular > 60 Filtrat Rate mL/min Glucose Level 262 H Calcium Level 7.8 L Phosphorus Level 2.6 Magnesium Level 1.5 L Triglycerides Level > 1575 H Test 08/16/18 10:13 08/16/18 11:17 Bedside Glucose 235 H 232 H Exam/Review of Systems Exam Vitals Vital Signs Date Temp Pulse Resp B/P (MAP) Pulse Ox O2 O2 Flow FiO2 Time Delivery Rate 08/16/18 108 21 135/80 94 Room Air 10:00 (98) 08/16/18 98.6 08:00 08/15/18 3.0 12:00 Intake and Output 08/15/18 08/15/18 08/16/18 1515:00 23:00 07:00 IntakeIntake Total 607 ml 869 ml 618 ml OutputOutput Total 1000 ml 900 ml BalanceBalance 607 ml -131 ml -282 ml Results Results 24hrs Laboratory Tests Test 08/15/18 14:00 08/15/18 16:01 08/15/18 17:45 08/15/18 19:52 Bedside Glucose 111 143 180 273 H Test 08/15/18 22:00 08/16/18 00:22 08/16/18 02:11 08/16/18 04:03 Bedside Glucose 219 134 119 169 Test 08/16/18 06:18 08/16/18 08:29 08/16/18 09:09 08/16/18 09:19 Bedside Glucose 201 261 H 273 H White Blood Count 5.3 # Red Blood Count 4.32 Hemoglobin 13.0 Hematocrit 36.1 L Mean Corpuscular 83.6 Volume Mean Corpuscular 30.1 Hemoglobin Mean Corpuscular 36.0 Hemoglobin Concent Red Cell 13.0 Distribution Width Platelet Count 206 Mean Platelet Volume 9.4 Immature 0.600 H Granulocytes % Neutrophils % 55.3 Lymphocytes % 36.2 Monocytes % 6.4 Eosinophils % 1.3 Basophils % 0.2 Nucleated Red Blood 0.0 Cells % Immature 0.030 Granulocytes # Neutrophils # 2.9 Lymphocytes # 1.9 Monocytes # 0.3 Eosinophils # 0.1 Basophils # 0.0 Nucleated Red Blood 0.0 Cells # Sodium Level 133 L Potassium Level 3.6 Chloride Level 108 Carbon Dioxide Level 16 L Anion Gap 9 # Blood Urea Nitrogen 5 L Creatinine 0.37 L Est Glomerular > 60 Filtrat Rate mL/min Glucose Level 262 H Calcium Level 7.8 L Phosphorus Level 2.6 Magnesium Level 1.5 L Triglycerides Level > 1575 H Test 08/16/18 10:13 08/16/18 11:17 Bedside Glucose 235 H 232 H Medications Medication Current Medications Lidocaine (Xylocaine 1% (Mpf)) 30 ml ONCE PRN INJ iv insertion; Start 08/14/18 at 07:00 Ondansetron HCl (Zofran Inj) 4 mg Q6H PRN IV NAUSEA AND/OR VOMITING Last administered on 08/15/18at 19:18; Admin Dose 4 MG; Start 08/14/18 at 07:30 Acetaminophen (Tylenol Liquid) 650 mg Q6H PRN PO PAIN LEVEL 1-3 OR FEVER; Start 08/14/18 at 07:30 Fenofibrate (Tricor) 145 mg DAILY PO Last administered on 08/16/18at 08:40; Admin Dose 145 MG; Start 08/15/18 at 09:00 Diagnostic Test (Pha) (Accu-Chek) 1 ea Q1H XX Last administered on 08/16/18at 07:37; Admin Dose 1 EA; Start 08/14/18 at 20:00 Insulin Human Regular 100 unit/ Sodium Chloride 100 ml @ 0.2 mls/hr PER PROTOCOL IV Last administered on 08/16/18at 09:08; Admin Dose 5 MLS/HR; Start 08/14/18 at 21:00; Stop 08/16/18 at 17:00 Miscellaneous Information (* Miscellaneous Pharmacy Order) Treatment of Hypoglycemia: 1.BG 51... Per protocol XX ; Start 08/14/18 at 20:00 Dextrose (D50w Syringe) 25 ml Q15M PRN IV .DECREASED GLUCOSE; Start 08/14/18 at 20:00 Dextrose (D50w Syringe) 50 ml Q15M PRN IV .DECREASED GLUCOSE; Start 08/14/18 at 20:00 Miscellaneous Information 1 ea NOTE XX ; Start 08/15/18 at 02:00 Glucose (Glutose) 15 gm Q15M PRN PO DECREASED GLUCOSE; Start 08/15/18 at 02:00 Glucose (Glutose) 22.5 gm Q15M PRN PO DECREASED GLUCOSE; Start 08/15/18 at 02:00 Dextrose (D50w Syringe) 25 ml Q15M PRN IV DECREASED GLUCOSE; Start 08/15/18 at 02:00 Dextrose (D50w Syringe) 50 ml Q15M PRN IV DECREASED GLUCOSE; Start 08/15/18 at 02:00 Glucagon (Glucagen) 1 mg Q15M PRN IM DECREASED GLUCOSE; Start 08/15/18 at 02:00 Glucose (Glutose) 15 gm Q15M PRN BUCCAL DECREASED GLUCOSE; Start 08/15/18 at 02:00 Albuterol (Ventolin Hfa) 2 puff Q4H RESP THERAPY PRN INH wheezing; Start 08/15/18 at 09:30 Amlodipine Besylate (Norvasc) 5 mg DAILY PO Last administered on 08/16/18at 08:40; Admin Dose 5 MG; Start 08/15/18 at 10:00 Atorvastatin Calcium (Lipitor) 80 mg QHS PO Last administered on 08/15/18at 20:43; Admin Dose 80 MG; Start 08/15/18 at 21:00 Montelukast Sodium (Singulair) 10 mg QHS PO Last administered on 08/15/18at 20:43; Admin Dose 10 MG; Start 08/15/18 at 21:00 Hydromorphone HCl (Dilaudid) 1 mg Q4H PRN IV PAIN LEVEL 7-10 Last administered on 08/16/18at 08:19; Admin Dose 1 MG; Start 08/15/18 at 12:00 Sucralfate (Carafate Susp) 1 gm QID PO Last administered on 08/16/18at 08:39; A dmin Dose 1 GM; Start 08/15/18 at 17:00 Lisinopril (Zestril) 10 mg DAILY PO ; Start 08/17/18 at 09:00 Pantoprazole (Protonix Tab) 40 mg BID@0600,1800 PO ; Start 08/16/18 at 18:00 Fish Oil (Fish Oil) 3,000 mg BID PO ; Start 08/16/18 at 21:00 Insulin Glargine (Lantus) 80 units DAILY@2000 SC ; Start 08/16/18 at 20:00; Status UNV Metformin HCl (Glucophage) 850 mg BID WITH MEALS PO ; Start 08/16/18 at 17:35; Status UNV Insulin Glargine (Lantus) 30 units ONCE ONCE SC ; Start 08/16/18 at 12:30; St op 08/16/18 at 12:31; Status UNV Nateglinide (Starlix) 60 mg AC MEALS PO ; Start 08/16/18 at 17:05; Status UNV Lactated Ringer's 1,000 ml @ 70 mls/hr [id number] IV ; Start 08/16/18 at 12:30; Status UNV WILLARD NICOLE August 16, 2018 12:22
[2018-08-16] MEDS: LACTATED RINGER'S 1,000 ML IV SCH (12:59)
[2018-08-16] MEDS: CALCIUM CARBONATE 500 MG CHEW TAB PO SCH ×2 (12:59→18:07)
[2018-08-16] MEDS ORDERED: INSULIN GLARGINE [LANTus] (100 UNITS/ML) SYG SC ONE (13:30)
[2018-08-16] MEDS ORDERED: metFORMIN 500 MG TAB PO SCH (17:35)
[2018-08-16] MEDS: PANTOPRAZOLE (EC) 40 MG TAB PO SCH (18:07)
[2018-08-16] MEDS: NATEGLINIDE 60 MG TAB PO SCH (18:07)
[2018-08-16] MEDS: INSULIN GLARGINE [LANTus] (100 UNITS/ML) SYG SC SCH (20:29)
[2018-08-16] MEDS: MONTELUKAST 10 MG TAB PO SCH (20:34)
[2018-08-16] MEDS: ATORVASTATIN 80 MG TAB PO SCH (20:34)
[2018-08-16] MEDS: INSULIN ASPART [NOVOLOG] 3 ML PEN SC SCH ×2 (20:49→21:00)
[2018-08-16] MEDS ORDERED: INSULIN ASPART [NOVOLOG] 3 ML PEN SC ONE (21:00)
[2018-08-16] MEDS ORDERED: ACCU-CHEK XX ONE (21:00)
[2018-08-16] MEDS ORDERED: INSULIN LISPRO 100 UNIT/ML VIAL SC ONE (21:00)
[2018-08-16] MEDS ORDERED: INSULIN REGULAR, HUMAN 100 UNIT/1 ML 3ML VIAL SC ONE (22:30)
[2018-08-17] VITALS (22 sets, daily range): BP systolic 110–177; BP diastolic 70–104; PULSE 79–116; RESP 12–22
[2018-08-17] MEDS: HYDROmorphONE 1 MG/ML SYG IV PRN ×5 (00:21→16:47)
[2018-08-17] MEDS ORDERED: ACCU-CHEK XX SCH (02:00)
[2018-08-17] MEDS: LACTATED RINGER'S 1,000 ML IV SCH ×2 (02:50→19:01)
[2018-08-17] MEDS ORDERED: hydrALAzine 20 MG INJ IV PRN (03:00)
[2018-08-17] MEDS: ONDANSETRON 4 MG INJ IV PRN (04:23)
[2018-08-17] MEDS: PANTOPRAZOLE (EC) 40 MG TAB PO SCH ×2 (06:10→19:02)
[2018-08-17] MEDS: NATEGLINIDE 60 MG TAB PO SCH ×3 (07:05→16:39)
[2018-08-17] MEDS: metFORMIN 500 MG TAB PO SCH ×2 (07:35→16:40)
[2018-08-17] MEDS: CALCIUM CARBONATE 500 MG CHEW TAB PO SCH ×3 (08:36→19:02)
[2018-08-17] MEDS: SUCRALFATE (100 MG/ML) 10ML CUP PO SCH ×4 (08:36→20:15)
[2018-08-17] MEDS: AMLODIPINE 5 MG TAB PO SCH (08:37)
[2018-08-17] MEDS: FENOFIBRATE 145 MG TAB PO SCH (08:37)
[2018-08-17] MEDS: FISH OIL 1,000 MG CAP PO SCH ×2 (08:39→20:36)
[2018-08-17] MEDS: INSULIN REGULAR, HUMAN 100 UNIT/1 ML 3ML VIAL SC SCH ×4 (08:48→20:19)
[2018-08-17] MEDS ORDERED: LISINOPRIL 10 MG TAB PO SCH (09:00)
[2018-08-17] MEDS ORDERED: LISINOPRIL 5 MG TAB PO SCH (09:00)
--- NOTE | 2018-08-17 14:30 | PN ---
Date/Time of Note Date/Time of Note DATE: 08/17/18 TIME: 14:26 Assessment/Plan VTE Prophylaxis Risk score (from Nsg)>0 risk: 1 Pharmacological prophylaxis: NA/contraindicated Pharm contraindication: low risk/ambulating Lines/Catheters IV Catheter Type (from Nrsg): Mid Line Urinary Cath still in place: No Assessment/Plan Hospital Course 38 yo obese woman with insulin-dependent diabetes presents with abdominal pain and vomiting, found to be in DKA. #insulin-dependent diabetes with DKA -Have now titrated off insulin drip, transition to subcu insulin per endocrinology - Likely related to acute gastroenteritis with vomiting and abdominal pain. - HgbA1C 13.0 - Prior to admission, patient had been stable on toujeo 100u qAM for two years. Reports she took last dose recently, will plan to transition back to this regimen - Dr. Palumbo following #Hypertriglyceridemia -Continue home statin and fenofibrate -Insulin - Lipase negative, unlikely to have acute pancreatitis - Will continue to trend. #Nausea, vomiting - Patient reports black emesis prior to admission. Hgb is 15.7 and no black stool so no strong suspicion for brisk GI bleed at this time. Will monitor cl osely. - Protonix 40 mg IV twice daily. - Now resolved. - Continues to have burning pain when swallowing, GI consultation appreciated, EGD today # severe metabolic acidosis: - Secondary to DKA and GI losses. # obesity -Lifestyle changes # asthma: Stable, PRN inhaler if indicated # DVT GI prophylaxis: SCDs, Protonix IV DC planning: EGD today, anticipate DC home tomorrow Result Diagram: 08/17/18 0441 08/17/18440 Results 24hrs Laboratory Tests Test 08/16/18 14:47 08/16/18 15:36 08/16/18 16:32 08/16/18 18:02 Bedside Glucose 238 H 121 184 224 H Test 08/16/18 20:25 08/16/18 23:22 08/17/18 02:19 08/17/18 04:41 Bedside Glucose 289 H 303 H 258 H White Blood Count 5.6 Red Blood Count 4.30 Hemoglobin 12.7 Hematocrit 36.1 L Mean Corpuscular 84.0 Volume Mean Corpuscular 29.5 Hemoglobin Mean Corpuscular 35.2 Hemoglobin Concent Red Cell 13.0 Distribution Width Platelet Count 214 Mean Platelet Volume 9.6 Immature 0.400 Granulocytes % Neutrophils % 50.0 Lymphocytes % 41.7 Monocytes % 6.5 Eosinophils % 1.4 Basophils % 0.0 Nucleated Red Blood 0.0 Cells % Immature 0.020 Granulocytes # Neutrophils # 2.8 Lymphocytes # 2.3 Monocytes # 0.4 Eosinophils # 0.1 Basophils # 0.0 Nucleated Red Blood 0.0 Cells # Sodium Level 135 Potassium Level 3.5 Chloride Level 104 Carbon Dioxide Level 23 Anion Gap 8 Blood Urea Nitrogen 8 Creatinine 0.47 Est Glomerular > 60 Filtrat Rate mL/min Glucose Level 196 Calcium Level 8.5 Phosphorus Level 3.0 Magnesium Level 1.2 L Total Bilirubin 0.5 Direct Bilirubin 0.00 Indirect Bilirubin 0.5 Aspartate Amino 23 Transf (AST/SGOT) Alanine 17 Aminotransferase (AL T/SGPT) Alkaline Phosphatase 118 Total Protein 6.3 Albumin 3.1 L Globulin 3.20 Albumin/Globulin 0.96 Ratio Triglycerides Level > 1575 H Cholesterol Level 533 H LDL Cholesterol, Calculated HDL Cholesterol 30 L Cholesterol/HDL 17.7 Ratio Test 08/17/18 08:30 08/17/18 11:43 Bedside Glucose 142 176 Subjective 24 Hr Interval Summary Gastrointestinal: pain Exam/Review of Systems Exam Vitals Vital Signs Date Temp Pulse Resp B/P (MAP) Pulse Ox O2 O2 Flow FiO2 Time Delivery Rate 08/17/18 94 12:00 08/17/18 133/74 94 Room Air 11:00 (93) 08/17/18 15 09:00 08/17/18 98.4 08:00 08/15/18 3.0 12:00 Intake and Output 08/16/18 08/16/18 08/17/18 1515:00 23:00 07:00 IntakeIntake Total 1451.50 ml 1078.5 ml 820 ml BalanceBalance 1451.50 ml 1078.5 ml 820 ml Constitutional: alert, oriented Respiratory: clear to auscultation Cardiovascular: regular rate and rhythm Gastrointestinal: soft; No distended Musculoskeletal: nl extremities to inspection Results Results 24hrs Laboratory Tests Test 08/16/18 14:47 08/16/18 15:36 08/16/18 16:32 08/16/18 18:02 Bedside Glucose 238 H 121 184 224 H Test 08/16/18 20:25 08/16/18 23:22 08/17/18 02:19 08/17/18 04:41 Bedside Glucose 289 H 303 H 258 H White Blood Count 5.6 Red Blood Count 4.30 Hemoglobin 12.7 Hematocrit 36.1 L Mean Corpuscular 84.0 Volume Mean Corpuscular 29.5 Hemoglobin Mean Corpuscular 35.2 Hemoglobin Concent Red Cell 13.0 Distribution Width Platelet Count 214 Mean Platelet Volume 9.6 Immature 0.400 Granulocytes % Neutrophils % 50.0 Lymphocytes % 41.7 Monocytes % 6.5 Eosinophils % 1.4 Basophils % 0.0 Nucleated Red Blood 0.0 Cells % Immature 0.020 Granulocytes # Neutrophils # 2.8 Lymphocytes # 2.3 Monocytes # 0.4 Eosinophils # 0.1 Basophils # 0.0 Nucleated Red Blood 0.0 Cells # Sodium Level 135 Potassium Level 3.5 Chloride Level 104 Carbon Dioxide Level 23 Anion Gap 8 Blood Urea Nitrogen 8 Creatinine 0.47 Est Glomerular > 60 Filtrat Rate mL/min Glucose Level 196 Calcium Level 8.5 Phosphorus Level 3.0 Magnesium Level 1.2 L Total Bilirubin 0.5 Direct Bilirubin 0.00 Indirect Bilirubin 0.5 Aspartate Amino 23 Transf (AST/SGOT) Alanine 17 Aminotransferase (AL T/SGPT) Alkaline Phosphatase 118 Total Protein 6.3 Albumin 3.1 L Globulin 3.20 Albumin/Globulin 0.96 Ratio Triglycerides Level > 1575 H Cholesterol Level 533 H LDL Cholesterol, Calculated HDL Cholesterol 30 L Cholesterol/HDL 17.7 Ratio Test 08/17/18 08:30 08/17/18 11:43 Bedside Glucose 142 176 Medications Medication Current Medications Lidocaine (Xylocaine 1% (Mpf)) 30 ml ONCE PRN INJ iv insertion; Start 08/14/18 at 07:00 Ondansetron HCl (Zofran Inj) 4 mg Q6H PRN IV NAUSEA AND/OR VOMITING Last administered on 08/17/18at 04:23; Admin Dose 4 MG; Start 08/14/18 at 07:30 Acetaminophen (Tylenol Liquid) 650 mg Q6H PRN PO PAIN LEVEL 1-3 OR FEVER; Start 08/14/18 at 07:30 Fenofibrate (Tricor) 145 mg DAILY PO Last administered on 08/17/18at 08:37; Admin Dose 145 MG; Start 08/15/18 at 09:00 Dextrose (D50w Syringe) 25 ml Q15M PRN IV .DECREASED GLUCOSE; Start 08/14/18 at 20:00 Dextrose (D50w Syringe) 50 ml Q15M PRN IV .DECREASED GLUCOSE; Start 08/14/18 at 20:00 Miscellaneous Information 1 ea NOTE XX ; Start 08/15/18 at 02:00 Glucose (Glutose) 15 gm Q15M PRN PO DECREASED GLUCOSE; Start 08/15/18 at 02:00 Glucose (Glutose) 22.5 gm Q15M PRN PO DECREASED GLUCOSE; Start 08/15/18 at 02:00 Dextrose (D50w Syringe) 25 ml Q15M PRN IV DECREASED GLUCOSE; Start 08/15/18 at 02:00 Dextrose (D50w Syringe) 50 ml Q15M PRN IV DECREASED GLUCOSE; Start 08/15/18 at 02:00 Glucagon (Glucagen) 1 mg Q15M PRN IM DECREASED GLUCOSE; Start 08/15/18 at 02:00 Glucose (Glutose) 15 gm Q15M PRN BUCCAL DECREASED GLUCOSE; Start 08/15/18 at 02:00 Albuterol (Ventolin Hfa) 2 puff Q4H RESP THERAPY PRN INH wheezing; Start 08/15/18 at 09:30 Amlodipine Besylate (Norvasc) 5 mg DAILY PO Last administered on 08/17/18at 08:37; Admin Dose 5 MG; Start 08/15/18 at 10:00 Atorvastatin Calcium (Lipitor) 80 mg QHS PO Last administered on 08/16/18at 20:34; Admin Dose 80 MG; Start 08/15/18 at 21:00 Montelukast Sodium (Singulair) 10 mg QHS PO Last administered on 08/16/18at 20:34; Admin Dose 10 MG; Start 08/15/18 at 21:00 Hydromorphone HCl (Dilaudid) 1 mg Q4H PRN IV PAIN LEVEL 7-10 Last administered on 08/17/18at 12:39; Admin Dose 1 MG; Start 08/15/18 at 12:00 Sucralfate (Carafate Susp) 1 gm QID PO Last administered on 08/17/18at 12:39; Admin Dose 1 GM; Start 08/15/18 at 17:00 Lisinopril (Zestril) 10 mg DAILY PO Last administered on 08/17/18 08:38; Admin Dose 10 MG; Start 08/17/18 at 09:00 Pantoprazole (Protonix Tab) 40 mg BID@0600,1800 PO Last administered on 08/17/18 06:10; Admin Dose 40 MG; Start 08/16/18 at 18:00 Fish Oil (Fish Oil) 3,000 mg BID PO ; Start 08/16/18 at 21:00 Insulin Glargine (Lantus) 80 units DAILY@2000 SC Last administered on 08/16/18 20:29; Admin Dose 80 UNITS; Start 08/16/18 at 20:00 Nateglinide (Starlix) 60 mg AC MEALS PO Last administered on 08/16/18 18:07; Admin Dose 60 MG; Start 08/16/18 at 17:05 Lactated Ringer's 1,000 ml @ 70 mls/hr [id number] IV Last administered on 08/17/18 02:50; Admin Dose 70 MLS/HR; Start 08/16/18 at 12:30 Metformin HCl (Glucophage) 500 mg BID WITH MEALS PO Last administered on 08/16/18 18:07; Admin Dose 500 MG; Start 08/16/18 at 17:35 Calcium Carbonate (Tums) 500 mg PC MEALS PO Last administered on 08/17/18 12:39; Admin Dose 500 MG; Start 08/16/18 at 12:30 Diagnostic Test (Pha) (Accu-Chek) 1 ea 02 XX ; Start 08/17/18 at 02:00 Miscellaneous Information (* Miscellaneous Pharmacy Order) DO NOT DC PO DIABE... ONCE XX ; Start 08/16/18 at 21:00 Insulin Human Regular (Humulin R) *MODERATE* ALGORITHM WITH MEALS BEDTIME SC Last administered on 08/17/18at 11:46; Admin Dose 2 UNIT; Start 08/16/18 at 23:32 Hydralazine HCl (Apresoline) 10 mg Q4H PRN IV ELEVATED SYSTOLIC BP; Start 08/17/18 at 03:00 CHAVEZ SILVA August 17, 2018 14:30
--- NOTE | 2018-08-17 15:26 | CONS ---
Assessment/Plan Assessment/Plan Problems: (1) Type 2 diabetes mellitus Status: Chronic Comment: At this time her sugar control is swinging into line nicely. Further adjustments will undoubtedly have to be made but let us see the results of further GI work-up. Please note she is out of DKA and probably could be moved to regular floor. Qualifiers: Diabetes mellitus long winder tender insulin use: with [facility] use Diabetes mellitus complication status: without complication Qualified Codes: E11.9 - Type 2 diabetes mellitus without complications; Z79.4 - group home (current) use of insulin (2) Undifferentiated abdominal pain Status: Acute Comment: As per gastroenterology. (3) Hypertriglyceridemia Status: Chronic Comment: On medications. Consultation Date/Type/Reason Admit Date/Time August 14, 2018 at 06:21 Initial Consult Date 08/14/18 Type of Consult Endocrine Reason for Consultation Insulin treated diabetes with severe mixed hyperlipidemia and chronic abdominal pain with normal amylase and lipase but prior history of pancreatitis x2 episodes Requesting Provider: MERNA WALTERS Date/Time of Note DATE: 08/17/18 TIME: 15:24 24 HR Interval Summary Free Text/Dictation She reports she is still having discomfort and is pending upper endoscopy. Constitutional: no complaints Detailed Summary Respiratory: no complaints Cardiovascular: no complaints Gastrointestinal: pain Genitourinary: no complaints Endocrine: no complaints Exam/Review of Systems Exam Vitals Vital Signs Date Temp Pulse Resp B/P (MAP) Pulse Ox O2 O2 Flow FiO2 Time Delivery Rate 08/17/18 94 12:00 08/17/18 133/74 94 Room Air 11:00 (93) 08/17/18 15 09:00 08/17/18 98.4 08:00 08/15/18 3.0 12:00 Intake and Output 08/16/18 08/16/18 08/17/18 1515:00 23:00 07:00 IntakeIntake Total 1451.50 ml 1078.5 ml 820 ml BalanceBalance 1451.50 ml 1078.5 ml 820 ml Exam No change in examination Results Result Diagram: 08/17/18 0441 08/17/18 0441 Results 24hrs Laboratory Tests Test 08/16/18 15:36 08/16/18 16:32 08/16/18 18:02 08/16/18 20:25 Bedside Glucose 121 184 224 H 289 H Test 08/16/18 23:22 08/17/18 02:19 08/17/18 04:41 08/17/18 08:30 Bedside Glucose 303 H 258 H 142 White Blood Count 5.6 Red Blood Count 4.30 Hemoglobin 12.7 Hematocrit 36.1 L Mean Corpuscular 84.0 Volume Mean Corpuscular 29.5 Hemoglobin Mean Corpuscular 35.2 Hemoglobin Concent Red Cell 13.0 Distribution Width Platelet Count 214 Mean Platelet Volume 9.6 Immature 0.400 Granulocytes % Neutrophils % 50.0 Lymphocytes % 41.7 Monocytes % 6.5 Eosinophils % 1.4 Basophils % 0.0 Nucleated Red Blood 0.0 Cells % Immature 0.020 Granulocytes # Neutrophils # 2.8 Lymphocytes # 2.3 Monocytes # 0.4 Eosinophils # 0.1 Basophils # 0.0 Nucleated Red Blood 0.0 Cells # Sodium Level 135 Potassium Level 3.5 Chloride Level 104 Carbon Dioxide Level 23 Anion Gap 8 Blood Urea Nitrogen 8 Creatinine 0.47 Est Glomerular > 60 Filtrat Rate mL/min Glucose Level 196 Calcium Level 8.5 Phosphorus Level 3.0 Magnesium Level 1.2 L Total Bilirubin 0.5 Direct Bilirubin 0.00 Indirect Bilirubin 0.5 Aspartate Amino 23 Transf (AST/SGOT) Alanine 17 Aminotransferase (AL T/SGPT) Alkaline Phosphatase 118 Total Protein 6.3 Albumin 3.1 L Globulin 3.20 Albumin/Globulin 0.96 Ratio Triglycerides Level > 1575 H Cholesterol Level 533 H LDL Cholesterol, Calculated HDL Cholesterol 30 L Cholesterol/HDL 17.7 Ratio Test 08/17/18 11:43 Bedside Glucose 176 Medications Medication Current Medications Lidocaine (Xylocaine 1% (Mpf)) 30 ml ONCE PRN INJ iv insertion; Start 08/14/18 at 07:00 Ondansetron HCl (Zofran Inj) 4 mg Q6H PRN IV NAUSEA AND/OR VOMITING Last administered on 08/17/18at 04:23; Admin Dose 4 MG; Start 08/14/18 at 07:30 Acetaminophen (Tylenol Liquid) 650 mg Q6H PRN PO PAIN LEVEL 1-3 OR FEVER; Start 08/14/18 at 07:30 Fenofibrate (Tricor) 145 mg DAILY PO Last administered on 08/17/18at 08:37; Admin Dose 145 MG; Start 08/15/18 at 09:00 Dextrose (D50w Syringe) 25 ml Q15M PRN IV .DECREASED GLUCOSE; Start 08/14/18 at 20:00 Dextrose (D50w Syringe) 50 ml Q15M PRN IV .DECREASED GLUCOSE; Start 08/14/18 at 20:00 Miscellaneous Information 1 ea NOTE XX ; Start 08/15/18 at 02:00 Glucose (Glutose) 15 gm Q15M PRN PO DECREASED GLUCOSE; Start 08/15/18 at 02:00 Glucose (Glutose) 22.5 gm Q15M PRN PO DECREASED GLUCOSE; Start 08/15/18 at 02:00 Dextrose (D50w Syringe) 25 ml Q15M PRN IV DECREASED GLUCOSE; Start 08/15/18 at 02:00 Dextrose (D50w Syringe) 50 ml Q15M PRN IV DECREASED GLUCOSE; Start 08/15/18 at 02:00 Glucagon (Glucagen) 1 mg Q15M PRN IM DECREASED GLUCOSE; Start 08/15/18 at 02:00 Glucose (Glutose) 15 gm Q15M PRN BUCCAL DECREASED GLUCOSE; Start 08/15/18 at 02:00 Albuterol (Ventolin Hfa) 2 puff Q4H RESP THERAPY PRN INH wheezing; Start 08/15/18 at 09:30 Amlodipine Besylate (Norvasc) 5 mg DAILY PO Last administered on 08/17/18at 08:37; Admin Dose 5 MG; Start 08/15/18 at 10:00 Atorvastatin Calcium (Lipitor) 80 mg QHS PO Last administered on 08/16/18at 20:34; Admin Dose 80 MG; Start 08/15/18 at 21:00 Montelukast Sodium (Singulair) 10 mg QHS PO Last administered on 08/16/18at 20:34; Admin Dose 10 MG; Start 08/15/18 at 21:00 Hydromorphone HCl (Dilaudid) 1 mg Q4H PRN IV PAIN LEVEL 7-10 Last administered on 08/17/18at 12:39; Admin Dose 1 MG; Start 08/15/18 at 12:00 Sucralfate (Carafate Susp) 1 gm QID PO Last administered on 08/17/18at 12:39; Admin Dose 1 GM; Start 08/15/18 at 17:00 Lisinopril (Zestril) 10 mg DAILY PO Last administered on 08/17/18at 08:38; Admin Dose 10 MG; Start 08/17/18 at 09:00 Pantoprazole (Protonix Tab) 40 mg BID@0600,1800 PO Last administered on 08/17/18at 06:10; Admin Dose 40 MG; Start 08/16/18 at 18:00 Fish Oil (Fish Oil) 3,000 mg BID PO ; Start 08/16/18 at 21:00 Insulin Glargine (Lantus) 80 units DAILY@2000 SC Last administered on 08/16/18at 20:29; Admin Dose 80 UNITS; Start 08/16/18 at 20:00 Nateglinide (Starlix) 60 mg AC MEALS PO Last administered on 08/16/18 18:07; Admin Dose 60 MG; Start 08/16/18 at 17:05 Lactated Ringer's 1,000 ml @ 70 mls/hr [id number] IV Last administered on 08/17/18at 02:50; Admin Dose 70 MLS/HR; Start 08/16/18 at 12:30 Metformin HCl (Glucophage) 500 mg BID WITH MEALS PO Last administered on 08/16/18at 18:07; Admin Dose 500 MG; Start 08/16/18 at 17:35 Calcium Carbonate (Tums) 500 mg PC MEALS PO Last administered on 08/17/18at 12:39; Admin Dose 500 MG; Start 08/16/18 at 12:30 Diagnostic Test (Pha) (Accu-Chek) 1 ea 02 XX ; Start 08/17/18 at 02:00 Miscellaneous Information (* Miscellaneous Pharmacy Order) DO NOT DC PO DIABE... ONCE XX ; Start 08/16/18 at 21:00 Insulin Human Regular (Humulin R) *MODERATE* ALGORITHM WITH MEALS BEDTIME SC Last administered on 08/17/18at 11:46; Admin Dose 2 UNIT; Start 08/16/18 at 23:32 Hydralazine HCl (Apresoline) 10 mg Q4H PRN IV ELEVATED SYSTOLIC BP; Start 08/17/18 at 03:00 Magnesium Sulfate 100 ml @ 25 mls/hr ONCE ONCE IVPB ; Start 08/17/18 at 16:00; Stop 08/17/18 at 19:59 ROLANDO PERRY MD August 17, 2018 15:26
[2018-08-17] MEDS ORDERED: EZETIMIBE 10 MG TAB PO SCH (15:30)
[2018-08-17] MEDS ORDERED: MAGNESIUM SULFATE 4 GM/100 ML 100 ML IVPB ONE (16:00)
--- NOTE | 2018-08-17 16:34 | PREAC ---
Date/Time of Note Date/Time of Note DATE: 08/17/18 TIME: 16:33 Anesthesia Eval and Record Evaluation Time Pre-Procedure Interview DATE: 08/17/18 TIME: 16:33 Age 38 Sex female NPO: 8 hrs Preoperative diagnosis epigastric pain Planned procedure EGD Past Medical History Past Medical History: Includes Endo: Diabetes (poorly controlled ) Pulm: Asthma GI: Obesity Surgery & Anesthesia Issues No known issue Meds Anticoagulation: No Beta Cherise within 24 hr: No Reason Beta Cherise not given: Pt. not on B-Cherise Reported Medications Sitagliptin Phos/Metformin HCl (Janumet 50-500 mg Tablet) 1 Each Tablet, 1 EACH PO BID, TAB 08/14/18 Omeprazole* (Omeprazole*) 20 Mg Capsule.dr, 20 MG PO DAILY, #30 CAP 08/14/18 Losartan Potassium* (Losartan Potassium*) 25 Mg Tablet, 25 MG PO DAILY, TAB 08/14/18 Zolpidem Tartrate* (Zolpidem Tartrate*) 10 Mg Tablet, 10 MG PO QHS PRN for INSOMNIA, #30 TAB 08/14/18 Amlodipine Besylate* (Norvasc*) 5 Mg Tablet, 5 MG PO DAILY, TAB 08/14/18 Atorvastatin* (Atorvastatin*) 80 Mg Tablet, 80 MG PO QHS, #30 TAB 08/14/18 Montelukast Sodium* (Singulair*) 10 Mg Tablet, 10 MG PO QHS, #30 TAB 08/14/18 Fenofibrate* (Fenofibrate*) 200 Mg Cap, 200 MG PO DAILY, CAP 08/14/18 Loratadine* (Loratadine*) 10 Mg Tablet, 10 MG PO DAILY, #30 TAB 08/14/18 Insulin Glargine,Hum.rec.anlog (Ivis Peña) 300 Unit/1 Ml Insuln.pen, 100 UNIT SQ QAM, EA 08/14/18 Albuterol Sulfate* (Proair HFA*) 8.5 Gm Hfa.aer.ad, 2 PUFF INH Q4, #1 INHALER 05/09/17 Pantoprazole* (Protonix*) 40 Mg Tablet.dr, 40 MG PO DAILY, TAB 04/26/17 Atenolol* (Atenolol*) 25 Mg Tablet, 50 MG PO DAILY PRN for ELEVATED BLOOD PRESSURE, #30 TAB 2/7/18 Discontinued Reported Medications Fenofibrate Nanocrystallized* (Tricor*) 145 Mg Tablet, 145 MG PO DAILY, TAB 05/09/17 Insulin Lispro (Humalog Kwikpen U-100) 100 Unit/1 Ml Insuln.pen, 0 SQ, EA INJECT 60u plus sliding Scale 05/09/17 Insulin Glargine,Hum.rec.anlog (Toujeo Solostar) 300 Unit/1 Ml Insuln.pen, 80 UNIT SQ QHS, EA 04/26/17 Insulin Lispro (Humalog Kwikpen U-100) 100 Unit/1 Ml Insuln.pen, 0 SQ AC MEALS, EA 04/26/17 Discontinued Scripts Doxycycline Hyclate* (Doxycycline Hyclate*) 100 Mg Tablet.dr, 100 MG PO BID for 10 Days, TAB Prov:FREDO ERICKSON PA-C 05/03/18 Naproxen* (Naprosyn*) 500 Mg Tablet, 500 MG PO BID PRN for PAIN AND/OR INFLAMMATION, #30 TAB Prov:ADRI RAO 05/03/18 Metoclopramide* (Reglan*) 10 Mg Tablet, 10 MG PO Q6 PRN for NAUSEA AND/OR VOMITING, #20 TAB Prov:ADRI RAO F 05/03/18 Current Medications Lidocaine (Xylocaine 1% (Mpf)) 30 ml ONCE PRN INJ iv insertion; Start 08/14/18 at 07:00 Ondansetron HCl (Zofran Inj) 4 mg Q6H PRN IV NAUSEA AND/OR VOMITING Last administered on 08/17/18at 04:23; Admin Dose 4 MG; Start 08/14/18 at 07:30 Acetaminophen (Tylenol Liquid) 650 mg Q6H PRN PO PAIN LEVEL 1-3 OR FEVER; Start 08/14/18 at 07:30 Fenofibrate (Tricor) 145 mg DAILY PO Last administered on 08/17/18at 08:37; Admin Dose 145 MG; Start 08/15/18 at 09:00 Dextrose (D50w Syringe) 25 ml Q15M PRN IV .DECREASED GLUCOSE; Start 08/14/18 at 20:00 Dextrose (D50w Syringe) 50 ml Q15M PRN IV .DECREASED GLUCOSE; Start 08/14/18 at 20:00 Miscellaneous Information 1 ea NOTE XX ; Start 08/15/18 at 02:00 Glucose (Glutose) 15 gm Q15M PRN PO DECREASED GLUCOSE; Start 08/15/18 at 02:00 Glucose (Glutose) 22.5 gm Q15M PRN PO DECREASED GLUCOSE; Start 08/15/18 at 02:00 Dextrose (D50w Syringe) 25 ml Q15M PRN IV DECREASED GLUCOSE; Start 08/15/18 at 02:00 Dextrose (D50w Syringe) 50 ml Q15M PRN IV DECREASED GLUCOSE; Start 08/15/18 at 02:00 Glucagon (Glucagen) 1 mg Q15M PRN IM DECREASED GLUCOSE; Start 08/15/18 at 02:00 Glucose (Glutose) 15 gm Q15M PRN BUCCAL DECREASED GLUCOSE; Start 08/15/18 at 0 2:00 Albuterol (Ventolin Hfa) 2 puff Q4H RESP THERAPY PRN INH wheezing; Start 08/15/18 at 09:30 Amlodipine Besylate (Norvasc) 5 mg DAILY PO Last administered on 08/17/18at 08:37; Admin Dose 5 MG; Start 08/15/18 at 10:00 Atorvastatin Calcium (Lipitor) 80 mg QHS PO Last administered on 08/16/18 20: 34; Admin Dose 80 MG; Start 08/15/18 at 21:00 Montelukast Sodium (Singulair) 10 mg QHS PO Last administered on 08/16/18 20:34; Admin Dose 10 MG; Start 08/15/18 at 21:00 Hydromorphone HCl (Dilaudid) 1 mg Q4H PRN IV PAIN LEVEL 7-10 Last administered on 08/17/18at 12:39; Admin Dose 1 MG; Start 08/15/18 at 12:00 Sucralfate (Carafate Susp) 1 gm QID PO Last administered on 08/17/18 12:39; Admin Dose 1 GM; Start 08/15/18 at 17:00 Lisinopril (Zestril) 10 mg DAILY PO Last administered on 08/17/18 08:38; Admin Dose 10 MG; Start 08/17/18 at 09:00 Pantoprazole (Protonix Tab) 40 mg BID@0600,1800 PO Last administered on 5/31/19at 06:10; Admin Dose 40 MG; Start 08/16/18 at 18:00 Fish Oil (Fish Oil) 3,000 mg BID PO ; Start 08/16/18 at 21:00 Insulin Glargine (Lantus) 80 units DAILY@2000 SC Last administered on 08/16/18at 20:29; Admin Dose 80 UNITS; Start 08/16/18 at 20:00 Nateglinide (Starlix) 60 mg AC MEALS PO Last administered on 08/16/18at 18:07; Admin Dose 60 MG; Start 08/16/18 at 17:05 Lactated Ringer's 1,000 ml @ 70 mls/hr [id number] IV Last administered on 08/17/18at 02:50; Admin Dose 70 MLS/HR; Start 08/16/18 at 12:30 Metformin HCl (Glucophage) 500 mg BID WITH MEALS PO Last administered on 08/16/18at 18:07; Admin Dose 500 MG; Start 08/16/18 at 17:35 Calcium Carbonate (Tums) 500 mg PC MEALS PO Last administered on 08/17/18at 12:39; Admin Dose 500 MG; Start 08/16/18 at 12:30 Diagnostic Test (Pha) (Accu-Chek) 1 ea 02 XX ; Start 08/17/18 at 02:00 Miscellaneous Information (* Miscellaneous Pharmacy Order) DO NOT DC PO DIABE... ONCE XX ; Start 08/16/18 at 21:00 Insulin Human Regular (Humulin R) *MODERATE* ALGORITHM WITH MEALS BEDTIME SC Last administered on 08/17/18at 11:46; Admin Dose 2 UNIT; Start 08/16/18 at 23:32 Hydralazine HCl (Apresoline) 10 mg Q4H PRN IV ELEVATED SYSTOLIC BP; Start 08/17/18 at 03:00 Magnesium Sulfate 100 ml @ 25 mls/hr ONCE ONCE IVPB ; Start 08/17/18 at 16:00; Stop 08/17/18 at 19:59 EZETIMIBE (Zetia) 10 mg DAILY PO ; Start 08/17/18 at 15:30 Miscellaneous Information (* Miscellaneous Pharmacy Order) Patient spouse is bring... ONCE XX ; Start 08/17/18 at 15:30; Status UNV Niacin (Niacin (Sr)) 500 mg QHS PO ; Start 08/17/18 at 21:00 Meds reviewed: Yes Allergies Coded Allergies: morphine (Verified Allergy, Unknown, TAKE WITH BENADRYL, 08/14/18) Allergies Reviewed: Yes Labs/Studies Labs Reviewed: Reviewed by anesthesiologist Result Diagram: 08/17/18 0441 08/17/18 0441 Laboratory Tests 08/17/18 04:41 test: Negative Pre-procedure Exam Last vitals Vital Signs Date Temp Pulse Resp B/P (MAP) Pulse Ox O2 O2 Flow FiO2 Time Delivery Rate 08/17/18 94 12:00 08/17/18 133/74 94 Room Air 11:00 (93) 08/17/18 15 09:00 08/17/18 98.4 08:00 08/15/18 3.0 12:00 Airway: Adequate mouth opening, Adequate thyromental dist Mallampati: Mallampati II Teeth: Normal Lung: Normal Heart: Normal ASA Physical Status ASA physical status: 3 Emergency: None Planned Anesthetic General/MAC: Mask Planned Pain Management Parenteral pain med Pre-operative Attestations Prior to commencing anesthesia and surgery, the patient was re-evaluated, there was verification of: *The patient's identity *The results of appropriate recent lab work and preoperative vital signs *The above evaluation not changing prior to induction *Anesthetic plan, risk benefits, alternative and complications discussed with patient/family; questions answered; patient/family understands, accepts and wishes to proceed. WINSOME MEDINA MD August 17, 2018 16:34
[2018-08-17] MEDS ORDERED: PROPOFOL 40 ML ONE (17:06)
[2018-08-17] MEDS ORDERED: LIDOCAINE 2% (SDV) 5 ML INJ ONE (17:06)
[2018-08-17] MEDS ORDERED: MIDAZOLAM 1 MG/ML 2 ML INJ ONE (17:07)
--- NOTE | 2018-08-17 17:58 | HPN ---
Date/Time of Note Date/Time of Note DATE: 08/17/18 TIME: 17:47 Interval H&P Admission Note Pt. seen H&P reviewed: No system changes LORENZO GARCIA MD August 17, 2018 17:58
[2018-08-17] MEDS ORDERED: METOCLOPRAMIDE 10 MG INJ IV SCH (18:00)
[2018-08-17] MEDS ORDERED: ONDANSETRON 4 MG INJ IV PRN (18:00)
--- NOTE | 2018-08-17 18:06 | PAC ---
Date/Time of Note Date/Time of Note DATE: 08/17/18 TIME: 18:04 Post-Anesthesia Notes Post-Anesthesia Note Last documented vital signs Vital Signs Date Temp Pulse Resp B/P (MAP) Pulse Ox O2 O2 Flow FiO2 Time Delivery Rate 08/17/18 106 19 159/99 Room Air 17:29 (119) 08/17/18 94 11:00 08/17/18 98.4 08:00 08/15/18 3.0 12:00 Activity: WNL Respiratory function: WNL Cardiovascular function: WNL Mental status: Baseline Pain reasonably controlled: Yes Hydration appropriate: Yes Nausea/Vomiting absent: Yes Comments BP: 90/62 HR: 99 RR: 15 T: 98 Sao2: 100% WINSOME MEDINA MD August 17, 2018 18:06
[2018-08-17] MEDS ORDERED: PHENYLephrine (100 MCG/ML) 10ML SYG ONE (18:09)
[2018-08-17] MEDS ORDERED: HYDROCODONE/APAP (5/325) TAB PO PRN (19:00)
[2018-08-17] MEDS: MONTELUKAST 10 MG TAB PO SCH (20:15)
[2018-08-17] MEDS: INSULIN GLARGINE [LANTus] (100 UNITS/ML) SYG SC SCH (20:20)
[2018-08-17] MEDS: ATORVASTATIN 80 MG TAB PO SCH (20:36)
[2018-08-17] MEDS ORDERED: NIACIN (SR) 250 MG CAP PO SCH (21:00)
[2018-08-17] MEDS ORDERED: NIACIN (ER) 500 MG TAB PO SCH (21:00)
--- NOTE | 2018-08-20 07:15 | DS ---
Date/Time of Note Date/Time of Note DATE: 08/20/18 TIME: 07:08 Discharge Summary Admission/Discharge Info Admit Date/Time August 14, 2018 at 06:21 Discharge Date/Time August 17, 2018 at 20:30 Discharge Diagnosis Diabetic ketoacidosis Patient Condition: Fair Consults Dr. Palumbo, endocrinology Hx of Present Illness Chief complaint: Nausea vomiting x2 days This is a 38-year-old female past medical history of type 1 diabetes and DKA, pericarditis, asthma who presents with shortness of breath. She says "my chest is burning". She said the symptoms started 2 days ago. She says that she has been checking her sugars every morning and they are "not high". She is taking her insulin she reports as directed. She reports that she has been having nausea vomiting with black emesis. Denies any bloody or black stools. She has no fevers. She reported that she was at [place] yesterday with similar symptoms but then left AMA because she had to to care of her son. Based on previous medical record she has a history of noncompliance. Allergies: Morphine Medications: See MAR Hospital Course The patient was admitted to the ICU on an insulin gtt on DKA protocol. She remained on the IV insulin for an extended period of time due to persistent nausea and metabolic acidosis even after gap closed. She was also found to have very elevated triglycerides >1575. Dr. Palumbo from endocrine was consulted and was closely following. She did require high dose IV opiates for abdominal pain. On the day of discharge she was tolerating regular diet, had just transitioned onto subQ insulin, but still had above metabolic derangements. I spoke to her at length at bedside explaining that we should optimize her further before discharge. But she insisted on leaving AMA. Home Meds Reported Medications Sitagliptin Phos/Metformin HCl (Janumet 50-500 mg Tablet) 1 Each Tablet, 1 EACH PO BID, TAB 08/14/18 Omeprazole* (Omeprazole*) 20 Mg Capsule., 20 MG PO DAILY, #30 CAP 08/14/18 Losartan Potassium* (Losartan Potassium*) 25 Mg Tablet, 25 MG PO DAILY, TAB 08/14/18 Zolpidem Tartrate* (Zolpidem Tartrate*) 10 Mg Tablet, 10 MG PO QHS PRN for INSOMNIA, #30 TAB 08/14/18 Amlodipine Besylate* (Norvasc*) 5 Mg Tablet, 5 MG PO DAILY, TAB 08/14/18 Atorvastatin* (Atorvastatin*) 80 Mg Tablet, 80 MG PO QHS, #30 TAB 08/14/18 Montelukast Sodium* (Singulair*) 10 Mg Tablet, 10 MG PO QHS, #30 TAB 08/14/18 Fenofibrate* (Fenofibrate*) 200 Mg Cap, 200 MG PO DAILY, CAP 08/14/18 Loratadine* (Loratadine*) 10 Mg Tablet, 10 MG PO DAILY, #30 TAB 08/14/18 Insulin Glargine,Hum.rec.anlog (Toujeo Solostar) 300 Unit/1 Ml Insuln.pen, 100 UNIT SQ QAM, EA 08/14/18 Albuterol Sulfate* (Proair HFA*) 8.5 Gm Hfa.aer.ad, 2 PUFF INH Q4, #1 INHALER 05/09/17 Pantoprazole* (Protonix*) 40 Mg Tablet.dr, 40 MG PO DAILY, TAB 04/26/17 Atenolol* (Atenolol*) 25 Mg Tablet, 50 MG PO DAILY PRN for ELEVATED BLOOD PRESSURE, #30 TAB 04/26/17 Discontinued Reported Medications Fenofibrate Nanocrystallized* (Tricor*) 145 Mg Tablet, 145 MG PO DAILY, TAB 05/09/17 Insulin Lispro (Humalog Kwikpen U-100) 100 Unit/1 Ml Insuln.pen, 0 SQ, EA INJECT 60u plus sliding Scale 05/09/17 Insulin Glargine,Hum.rec.anlog (Toujeo Solostar) 300 Unit/1 Ml Insuln.pen, 80 UNIT SQ QHS, EA 04/26/17 Insulin Lispro (Humalog Kwikpen U-100) 100 Unit/1 Ml Insuln.pen, 0 SQ AC MEALS, EA 04/26/17 Discontinued Scripts Doxycycline Hyclate* (Doxycycline Hyclate*) 100 Mg Tablet., 100 MG PO BID for 10 Days, TAB Prov:FREDO ERICKSON PA-C 05/03/18 Naproxen* (Naprosyn*) 500 Mg Tablet, 500 MG PO BID PRN for PAIN AND/OR INFLAMMATION, #30 TAB Prov:ADRI RAO 05/03/18 Metoclopramide* (Reglan*) 10 Mg Tablet, 10 MG PO Q6 PRN for NAUSEA AND/OR VOMITING, #20 TAB Prov:ADRI RAO 05/03/18 Primary Care Provider Eden Gilmore Time spent on discharge: > 30 minutes VINCENT ENGLE MD Aug 20, 2018 07:15
== END 2018-08-17 20:30 | disposition left against medical advice (07) | DRG 638 ==
LOC: E/R 04:53 → ICU 06:21 → SUATTDRO 08:19
PROVIDERS: ADMIT Family Medicine; ATTEND Internal Medicine
PROC: 0DB68ZX Excision of Stomach, Via Natural or Artificial Opening Endoscopic, Diagnostic (ICD-10-PCS; 2018-08-17)
PROC: 0DB58ZX Excision of Esophagus, Via Natural or Artificial Opening Endoscopic, Diagnostic (ICD-10-PCS; principal; 2018-08-17 17:30)
DX: E11.10 Type 2 diabetes mellitus with ketoacidosis without coma (principal); K22.10 Ulcer of esophagus without bleeding; E11.43 Type 2 diabetes mellitus with diabetic autonomic (poly)neuropathy; K31.84 Gastroparesis; E66.9 Obesity, unspecified; K76.0 Fatty (change of) liver, not elsewhere classified; E78.2 Mixed hyperlipidemia; E87.8 Other disorders of electrolyte and fluid balance, not elsewhere classified; K29.70 Gastritis, unspecified, without bleeding; Z79.4 Long term (current) use of insulin; Z68.32 Body mass index [BMI] 32.0-32.9, adult
CPT/HCPCS: 36415; 71045; 74176; 80048; 80053; 80061; 80307; 81001; 81025; 82150; 82803; 82962; 83036; 83690; 83735; 84100; 84478; 84484; 84681; 85025; 87081; 87086; 88305; 88312; 88313; 93005; 96374; 96375; C9113; J1170; J1815; J2250; J2370; J2405; J2765; J3475; J3480; J7030; J7120

== ENCOUNTER 2018-11-09 14:55 | Inpatient (IN) | payer OTHER ==
[2018-11-09] VITALS (7 sets, daily range): BP systolic 108–178; BP diastolic 63–89; PULSE 104–126; RESP 18–20; Ht 162.6 cm; Wt 88.0 kg
[~2018-11-09] VITALS: Ht 162.6 cm; Wt 88.0 kg
[~2018-11-09 14:55] MED LIST changes: +AMLO5TAB4 PO; +ATOR-2 PO; -DOXY100T20 PO; -FENO145T25 PO; +FENO200 PO; -INSU100I12 SQ; +LANT3I SC; +LORA10TA3 PO; +LOSA25TA12 PO; +METF-480 PO; -METO10TA92 PO; +MONT10TA21 PO; -NAPR-985 PO; +NOVO3I SC; +OMEG100024 PO; +OMEP20CA16 PO; +PIOG30TA12 PO; +SITA1TAB PO; +ZOLP10TA5 PO
[2018-11-09] MEDS ORDERED: CEFTRIAXONE 1 GM/50 ML (PMX) 50 ML IVPB STA (15:02)
[2018-11-09] MEDS ORDERED: ACETAMINOPHEN 325 MG TAB PO STA (15:02)
[2018-11-09] MEDS ORDERED: ALBUTEROL 0.083% (NEB) 2.5 MG/3 ML AMP HHN STA ×2 (15:15→19:28)
[2018-11-09] MEDS ORDERED: ONDANSETRON 4 MG INJ IV STA (15:15)
[2018-11-09] MEDS ORDERED: HYDROmorphONE 2 MG/ML SYG IV STA ×2 (15:15→17:06)
[2018-11-09] MEDS ORDERED: SODIUM CHLORIDE 0.9% 1L BAG IV* STA (15:24)
[2018-11-09] MEDS ORDERED: IPRATROPIUM (NEB) 0.5 MG/2.5 ML AMP HHN ONE (15:30)
[2018-11-09] MEDS ORDERED: SOD CHLORIDE 0.9% 1,000 ML IV SCH (16:52)
[2018-11-09] MEDS ORDERED: D10/0.45% NACL + KCL 30 MEQ 1,000 ML IV SCH (16:52)
[2018-11-09] MEDS ORDERED: DEXTROSE 10%/0.45% NACL 1,000 ML IV SCH (16:52)
[2018-11-09] MEDS ORDERED: D10/0.45% NACL + KCL 40 MEQ 1,000 ML IV SCH (16:52)
[2018-11-09] MEDS ORDERED: NS + KCL 40 MEQ 1,000 ML IV SCH (16:52)
[2018-11-09] MEDS ORDERED: DEXTROSE 50% 50 ML SYRINGE IV PRN ×2 (17:00)
[2018-11-09] MEDS ORDERED: LACTATED RINGER'S 850 ML IV ONE (17:00)
[2018-11-09] MEDS: INSULIN REGULAR, HUMAN 100 UNIT in SOD CHLORIDE 0.9% 100 ML IV SCH ×2 (17:37)
[2018-11-09] MEDS: NS + KCL 30 MEQ 1,000 ML IV SCH ×2 (17:56→21:39)
[2018-11-09] MEDS: CEFTRIAXONE 2 GM/50 ML (PMX) 50 ML IVPB SCH (20:54)
[2018-11-09] MEDS ORDERED: ACETAMINOPHEN 325 MG TAB PO PRN (21:30)
[2018-11-09] MEDS: ONDANSETRON 4 MG INJ IV PRN (21:58)
[2018-11-09] MEDS: HYDROmorphONE 0.5 MG/0.5 ML SYG IV PRN (21:59)
[2018-11-09] MEDS: LABETALOL HCL 20MG INJ IV PRN (21:59)
[2018-11-10] VITALS (30 sets, daily range): BP systolic 113–175; BP diastolic 52–122; PULSE 92–114; RESP 12–23
[2018-11-10] MEDS: HYDROmorphONE 0.5 MG/0.5 ML SYG IV PRN (01:52)
[2018-11-10] MEDS: NS + KCL 30 MEQ 1,000 ML IV SCH (01:59)
[2018-11-10] MEDS ORDERED: MAGNESIUM SULFATE 3 GM in DEXTROSE 5% 100 ML IVPB ONE (02:00)
[2018-11-10] MEDS: INSULIN REGULAR, HUMAN 100 UNIT in SOD CHLORIDE 0.9% 100 ML IV SCH ×2 (03:21)
[2018-11-10] MEDS: HYDROmorphONE 1 MG/ML SYG IV PRN ×5 (05:02→20:35)
[2018-11-10] MEDS: LABETALOL HCL 20MG INJ IV PRN ×3 (05:19→19:53)
[2018-11-10] MEDS: ONDANSETRON 4 MG INJ IV PRN ×3 (05:39→20:08)
[2018-11-10] MEDS ORDERED: SOD CHLORIDE 0.9% 1,000 ML IV SCH (07:30)
[2018-11-10] MEDS ORDERED: POTASSIUM CHLORIDE 20 MEQ POWDER FOR ORAL SOLN PO PRN ×3 (07:30)
[2018-11-10] MEDS ORDERED: DEXTROSE 50% 50 ML SYRINGE IV PRN ×4 (07:30→10:30)
[2018-11-10] MEDS: ACCU-CHEK XX SCH ×3 (07:30→09:41)
[2018-11-10] MEDS ORDERED: INSULIN HUMAN REGULAR 100 UNIT in SOD CHLORIDE 0.9% 99 ML IV SCH (07:30)
[2018-11-10] MEDS: NS + KCL 20 MEQ 1,000 ML IV SCH ×3 (08:19→17:24)
[2018-11-10] MEDS: CEFTRIAXONE 2 GM/50 ML (PMX) 50 ML IVPB SCH (08:57)
[2018-11-10] MEDS ORDERED: GLUCOSE GEL 15 GRAM TUBE PO PRN ×2 (10:30)
[2018-11-10] MEDS ORDERED: GLUCOSE GEL 15 GRAM TUBE BUCCAL PRN (10:30)
[2018-11-10] MEDS: FISH OIL 1,000 MG CAP PO SCH ×2 (10:30→20:07)
[2018-11-10] MEDS ORDERED: GLUCAGON 1 MG INJ IM PRN (10:30)
[2018-11-10] MEDS ORDERED: POTASSIUM PHOSPHATE 40 MEQ in SOD CHLORIDE 0.9% 250 ML IVPB ONE (11:00)
[2018-11-10] MEDS ORDERED: INSULIN GLARGINE [LANTus] (100 UNITS/ML) SYG SC SCH (11:00)
[2018-11-10] MEDS ORDERED: INSULIN ASPART [NOVOLOG] 3 ML PEN SC SCH (11:30)
[2018-11-10] MEDS: PIOGLITAZONE 30 MG TAB PO SCH (12:54)
[2018-11-10] MEDS: FENOFIBRATE 145 MG TAB PO SCH (12:56)
[2018-11-10] MEDS: INSULIN ASPART [NOVOLOG] 3 ML PEN SC SCH ×4 (12:57→21:00)
[2018-11-10] MEDS: metFORMIN 850 MG TAB PO SCH ×2 (12:59→17:28)
[2018-11-10] MEDS: DIPHENHYDRAMINE 50 MG INJ IV PRN ×2 (14:25→20:35)
[2018-11-11] VITALS (18 sets, daily range): BP systolic 123–182; BP diastolic 57–124; PULSE 94–113; RESP 9–25
[2018-11-11] MEDS: LABETALOL HCL 20MG INJ IV PRN ×2 (00:10→04:13)
[2018-11-11] MEDS: HYDROmorphONE 1 MG/ML SYG IV PRN ×6 (00:18→19:59)
[2018-11-11] MEDS: ACCU-CHEK XX SCH ×15 (01:56→23:54)
[2018-11-11] MEDS ORDERED: INSULIN ASPART [NOVOLOG] 3 ML PEN SC ONE ×2 (02:00→12:30)
[2018-11-11] MEDS: ONDANSETRON 4 MG INJ IV PRN (03:00)
[2018-11-11] MEDS ORDERED: ACCU-CHEK XX ONE (04:00)
[2018-11-11] MEDS: NS + KCL 20 MEQ 1,000 ML IV SCH (04:10)
[2018-11-11] MEDS: DIPHENHYDRAMINE 50 MG INJ IV PRN ×3 (04:22→19:00)
[2018-11-11] MEDS: INSULIN ASPART [NOVOLOG] 3 ML PEN SC SCH ×3 (07:35→11:30)
[2018-11-11] MEDS ORDERED: INSULIN GLARGINE [LANTus] (100 UNITS/ML) SYG SC SCH (08:00)
[2018-11-11] MEDS: CEFTRIAXONE 2 GM/50 ML (PMX) 50 ML IVPB SCH (08:36)
[2018-11-11] MEDS: FAMOTIDINE 20 MG INJ IV SCH (08:42)
[2018-11-11] MEDS: FISH OIL 1,000 MG CAP PO SCH ×2 (09:00→21:00)
[2018-11-11] MEDS: FENOFIBRATE 145 MG TAB PO SCH (10:04)
[2018-11-11] MEDS: metFORMIN 850 MG TAB PO SCH ×2 (10:05→13:00)
[2018-11-11] MEDS: PIOGLITAZONE 30 MG TAB PO SCH (10:05)
[2018-11-11] MEDS ORDERED: DEXTROSE 10%/0.45% NACL 1,000 ML IV SCH (11:07)
[2018-11-11] MEDS ORDERED: NS + KCL 40 MEQ 1,000 ML IV SCH (11:07)
[2018-11-11] MEDS ORDERED: NS + KCL 30 MEQ 1,000 ML IV SCH (11:07)
[2018-11-11] MEDS ORDERED: SOD CHLORIDE 0.9% 1,000 ML IV SCH (11:07)
[2018-11-11] MEDS ORDERED: D10/0.45% NACL + KCL 40 MEQ 1,000 ML IV SCH (11:07)
[2018-11-11] MEDS ORDERED: POTASSIUM PHOSPHATE 40 MEQ in SOD CHLORIDE 0.9% 250 ML IVPB ONE (13:30)
[2018-11-11] MEDS: INSULIN REGULAR, HUMAN 100 UNIT in SOD CHLORIDE 0.9% 100 ML IV SCH ×4 (14:23→23:54)
[2018-11-11] MEDS ORDERED: MAGNESIUM SULFATE 4 GM/100 ML 100 ML IVPB ONE (14:30)
[2018-11-11] MEDS: D10/0.45% NACL + KCL 30 MEQ 1,000 ML IV SCH ×2 (15:46→21:35)
[2018-11-12] VITALS (24 sets, daily range): BP systolic 100–166; BP diastolic 51–106; PULSE 82–101; RESP 14–24
[2018-11-12] MEDS: HYDROmorphONE 1 MG/ML SYG IV PRN ×6 (00:24→20:51)
[2018-11-12] MEDS: ACCU-CHEK XX SCH ×15 (01:30→20:59)
[2018-11-12] MEDS: DIPHENHYDRAMINE 50 MG INJ IV PRN ×4 (01:36→20:50)
[2018-11-12] MEDS: D10/0.45% NACL + KCL 30 MEQ 1,000 ML IV SCH ×2 (01:41→05:43)
[2018-11-12] MEDS ORDERED: INSULIN GLARGINE [LANTus] (100 UNITS/ML) SYG SC ONE (05:00)
[2018-11-12] MEDS: FISH OIL 1,000 MG CAP PO SCH ×2 (08:18→20:50)
[2018-11-12] MEDS: PIOGLITAZONE 30 MG TAB PO SCH ×2 (08:20→08:54)
[2018-11-12] MEDS: FENOFIBRATE 145 MG TAB PO SCH ×2 (08:20→08:54)
[2018-11-12] MEDS: FAMOTIDINE 20 MG INJ IV SCH (08:26)
[2018-11-12] MEDS: CEFTRIAXONE 2 GM/50 ML (PMX) 50 ML IVPB SCH (08:26)
[2018-11-12] MEDS: INSULIN GLARGINE [LANTus] (100 UNITS/ML) SYG SC SCH (08:45)
[2018-11-12] MEDS: metFORMIN 850 MG TAB PO SCH ×2 (08:54→17:42)
[2018-11-12] MEDS: INSULIN ASPART [NOVOLOG] 3 ML PEN SC SCH ×3 (11:00→20:58)
[2018-11-12] MEDS: FLUCONAZOLE 200 MG TAB PO SCH (16:45)
[2018-11-12] MEDS: METOCLOPRAMIDE 10 MG INJ IV SCH (17:14)
[2018-11-12] MEDS ORDERED: SODIUM PHOSPHATE 40 MEQ in SOD CHLORIDE 0.9% 250 ML IVPB ONE (18:00)
[2018-11-13] VITALS (24 sets, daily range): BP systolic 110–170; BP diastolic 79–113; PULSE 84–113; RESP 12–25
[2018-11-13] MEDS: METOCLOPRAMIDE 10 MG INJ IV SCH ×5 (00:10→23:44)
[2018-11-13] MEDS: ACCU-CHEK XX SCH ×5 (01:06→20:36)
[2018-11-13] MEDS: HYDROmorphONE 1 MG/ML SYG IV PRN ×7 (01:06→23:44)
[2018-11-13] MEDS: DIPHENHYDRAMINE 50 MG INJ IV PRN ×4 (03:39→21:29)
[2018-11-13] MEDS: ONDANSETRON 4 MG INJ IV PRN (04:43)
[2018-11-13] MEDS: INSULIN ASPART [NOVOLOG] 3 ML PEN SC SCH ×5 (07:05→20:45)
[2018-11-13] MEDS: PIOGLITAZONE 30 MG TAB PO SCH (08:14)
[2018-11-13] MEDS: FAMOTIDINE 20 MG INJ IV SCH (08:14)
[2018-11-13] MEDS: FLUCONAZOLE 200 MG TAB PO SCH (08:14)
[2018-11-13] MEDS: metFORMIN 850 MG TAB PO SCH ×3 (08:14→18:23)
[2018-11-13] MEDS: FISH OIL 1,000 MG CAP PO SCH ×2 (08:14→20:39)
[2018-11-13] MEDS: FENOFIBRATE 145 MG TAB PO SCH (08:14)
[2018-11-13] MEDS: INSULIN GLARGINE [LANTus] (100 UNITS/ML) SYG SC SCH (08:20)
[2018-11-14] VITALS (16 sets, daily range): BP systolic 106–169; BP diastolic 60–109; PULSE 97–120; RESP 12–27
[2018-11-14] MEDS: ACCU-CHEK XX SCH ×3 (02:00→11:45)
[2018-11-14] MEDS: DIPHENHYDRAMINE 50 MG INJ IV PRN ×3 (03:46→15:35)
[2018-11-14] MEDS: HYDROmorphONE 1 MG/ML SYG IV PRN ×3 (03:47→12:11)
[2018-11-14] MEDS: METOCLOPRAMIDE 10 MG INJ IV SCH ×2 (06:55→12:46)
[2018-11-14] MEDS: INSULIN ASPART [NOVOLOG] 3 ML PEN SC SCH ×4 (07:05→11:56)
[2018-11-14] MEDS: INSULIN GLARGINE [LANTus] (100 UNITS/ML) SYG SC SCH (07:37)
[2018-11-14] MEDS: PIOGLITAZONE 30 MG TAB PO SCH (08:28)
[2018-11-14] MEDS: FAMOTIDINE 20 MG INJ IV SCH (08:28)
[2018-11-14] MEDS: FISH OIL 1,000 MG CAP PO SCH (08:28)
[2018-11-14] MEDS: metFORMIN 850 MG TAB PO SCH ×2 (08:28→13:18)
[2018-11-14] MEDS: FENOFIBRATE 145 MG TAB PO SCH (08:28)
[2018-11-14] MEDS ORDERED: CREON (12k-38k-60k) 1 CAP PO SCH (17:35)
[2018-11-14] MEDS ORDERED: INSULIN ASPART [NOVOLOG] 3 ML PEN SC SCH (17:35)
== END 2018-11-14 17:30 | disposition home or self-care (01) | DRG 638 ==
LOC: E/R 14:55 → ICU 17:41 → PP2 11-11 06:54 → ICU 11-11 13:39
PROVIDERS: ADMIT Internal Medicine; ATTEND Internal Medicine
DX: E10.10 Type 1 diabetes mellitus with ketoacidosis without coma (principal); B37.41 Candidal cystitis and urethritis; K86.1 Other chronic pancreatitis; K31.84 Gastroparesis; E10.65 Type 1 diabetes mellitus with hyperglycemia; E78.5 Hyperlipidemia, unspecified; E10.43 Type 1 diabetes mellitus with diabetic autonomic (poly)neuropathy; E66.9 Obesity, unspecified; Z68.33 Body mass index [BMI] 33.0-33.9, adult; Z79.4 Long term (current) use of insulin; Z91.19 Patient's noncompliance with other medical treatment and regimen
CPT/HCPCS: 36415; 71045; 76705; 80048; 80053; 80061; 80069; 80307; 81001; 81025; 82787; 82803; 82962; 83036; 83605; 83615; 83690; 83735; 84100; 84484; 85025; 85610; 85730; 86038; 87081; 87086; 93005; 94640; 94664; 96365; 96375; 96376; J0696; J1170; J1200; J1815; J2405; J2765; J3475; J3480; J7030; J7050; J7120